=== PATIENT | female | born 1980 | race Caucasian/White ===

== ENCOUNTER 2018-11-14 10:38 | Emergency (ER) | payer BC, OTHER ==
[~2018-11-14] VITALS: Ht 149.9 cm; Wt 85.7 kg
[~2018-11-14 10:38] MED LIST: ARMOUR THYROID60 MG PO; METHADONE HCL10 MG PO; VICODIN PO; Z.0.PROZAC40 MG
--- OUTSIDE RECORDS SUMMARY | 2018-11-14 10:45 | XMS REPORT | Continuity of Care Document ---
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 07/07/2011 [facility] D5NS 1,000 mL 1,000 mL, Rate: 125 ml/hr, Infuse over: 8 hr, Route: IV, Total Volume: 1,000, Start date: 07/06/11 19:07:00, Duration: 30 day, Stop date: 08/05/11 19:06:00 IV No Longer Active Steven 07/07/2011 [facility] Dextrose 50% in Water IV 50 mL, Route: IVP, Start date: 07/06/11 19:00:00, Stop date: 07/06/11 19:00:00 IVP No Longer Active Steven 07/07/2011 [facility] Levsin SL 0.125 mg, 1 tab, Route: SL, Drug form: TAB, Q4H, Start date: 07/06/11 16:00:00, Duration: 30 day, Stop date: 08/05/11 12:00:00 SL No Longer Active Steven 07/06/2011 [facility] Cipro I.V. 400 mg/200 mL intravenous solution 400 mg, 200 mL, Route: IVPB, Drug form: INJ, [id number], Start date: 07/06/11 14:00:00, Duration: 30 day, Stop date: 08/05/11 2:00:00 IVPB No Longer Active Steven 07/06/2011 [facility] MiraLax 17 gm, 1 pkt, Route: PO, Drug form: PWDR, BID, Start date: 07/06/11 9:00:00, Duration: 30 day, Stop date: 08/04/11 17:00:00 PO No Longer Active [facility] 07/06/2011 [facility] Nexium I.V. 40 mg, Route: IVP, Q12H, Start date: 07/06/11 9:00:00, Duration: 30 day, Stop date: 08/04/11 21:00:00, For IV push reconstitute with 10 ml 0.9% sodium chloride and push over at least 3 minutes.For IV push reconstitute with 10 ml 0.9% sodium chloride and push over at least 3 minutes. IVP No Longer Active [facility] 07/06/2011 [facility] Protonix 40 mg, Route: IVP, Drug form: INJ, Q12H, Start date: 07/06/11 9:00:00, Duration: 30 day, Stop date: 08/04/11 21:00:00 IVP No Longer Active [facility] 07/06/2011 [facility] Dilaudid 2 mg, 1 mL, Route: IVP, Drug form: INJ, Q3H, PRN Pain, Start date: 07/06/11 8:15:00, Duration: 30 day, Stop date: 08/05/11 8:14:00 IVP No Longer Active [facility] 07/06/2011 [facility] Dilaudid 0.5 mg, 0.5 mL, Route: IVP, Drug form: SOLN, Q3H, PRN as needed for pain, Priority: STAT, Start date: 07/06/11 6:05:00, Duration: 30 day, Stop date: 08/05/11 6:04:00 IVP No Longer Active Rolfuglloyd 07/06/2011 [facility] Saline Flush 0.9% 5 ml, Route: IVP, Drug Form: INJ, PRN, PRN Line Flush, Start date: 07/06/11 6:05:00, Duration: 30 day, Stop date: 08/05/11 5:04:00 IVP No Longer Active Rolfuglloyd 07/06/2011 [facility] Sodium Chloride 0.9% IV 1,000 mL 1,000 mL, Rate: 125 ml/hr, Infuse over: 8 hr, Route: IV, Total Volume: 1,000, Start date: 07/06/11 6:05:00, Duration: 30 day, Stop date: 08/05/11 6:04:00 IV No Longer Active Mougouris 07/06/2011 [facility] ondansetron 4 mg, 2 mL, Route: IVP, Drug form: INJ, Q6H, PRN Nausea & Vomiting, Start date: 07/06/11 6:05:00, Duration: 30 day, Stop date: 08/05/11 6:04:00 IVP No Longer Active Mougouris 07/06/2011 [facility] Dilaudid 1 mg, Route: IV, ONCE, Priority: STAT, Start date: 07/06/11 3:34:00, Stop date: 07/06/11 3:34:00 IV No Longer Active Calixto 07/06/2011 [facility] Zofran 4 mg, Route: IVP, ONCE, Start date: 07/06/11 3:34:00, Stop date: 07/06/11 3:34:00 IVP No Longer Active Calixto 07/06/2011 [facility] Sodium Chloride 0.9% (Bolus) IV 1,000 mL 1,000 mL, Rate: 250 ml/hr, Infuse over: 4 hr, Route: IV, Total Volume: 1,000, Priority: STAT, Start date: 07/06/11 3:33:00, Duration: 1 doses or times, Stop date: 07/06/11 7:32:00, Bolus DoseBolus Dose IV No Longer Active Calixto 07/06/2011 [facility] Dilaudid 1 mg, Route: IV, ONCE, Priority: STAT, Start date: 07/06/11 0:36:00, Stop date: 07/06/11 0:36:00 IV No Longer Active Calixto 07/06/2011 [facility] Dilaudid 1 mg, Route: IV, ONCE, Priority: STAT, Start date: 07/05/11 23:53:00, Stop date: 07/05/11 23:53:00 IV No Longer Active Calixto 07/06/2011 [facility] Zofran 4 mg, Route: IVP, ONCE, Start date: 07/05/11 23:53:00, Stop date: 07/05/11 23:53:00 IVP No Longer Active Calixto 07/06/2011 [facility] Saline Flush 0.9% 5 ml, Route: IVP, Drug Form: INJ, PRN, PRN Line Flush, Start date: 07/05/11 23:53:00, Duration: 24 hr, Stop date: 07/06/11 23:52:00 IVP No Longer Active Rolfugdoriis 07/06/2011 [facility] Sodium Chloride 0.9% IV 1,000 mL 1,000 mL, Rate: 500 ml/hr, Infuse over: 2 hr, Route: IV, Total Volume: 1,000, Start date: 07/05/11 23:53:00, Duration: 30 day, Stop date: 08/04/11 23:52:00 IV No Longer Active Mougdoriis 07/06/2011 [facility] Prozac 20 mg oral capsule 60 mg, 3 cap, PO, Daily, 30 cap, Substitution Allowed, CAP PO Active Miguelito 06/28/2011 [facility] Dilaudid 2 mg, 1 mL, Route: IV, Drug form: INJ, ONCE, Start date: 06/27/11 14:49:00, Stop date: 06/27/11 14:49:00 IV No Longer Active Kafrouni 06/27/2011 [facility] Prozac 60 mg, 3 cap, Route: PO, Drug form: CAP, Daily, Start date: 06/26/11 22:42:00, Duration: 30 day, Stop date: 07/26/11 21:00:00 PO No Longer Active Antonella 06/27/2011 [facility] amitriptyline 100 mg, 2 tab, Route: PO, Drug form: TAB, Bedtime, Start date: 06/26/11 21:00:00, Duration: 30 day, Stop date: 07/25/11 21:00:00 PO No Longer Active Miguelito 06/27/2011 [facility] chlordiazepoxide-clidinium 5 mg-2.5 mg oral capsule 2 cap, Route: PO, Drug Form: CAP, QID, PRN GI Upset, Start date: 06/26/11 18:18:00, Stop date: 07/26/11 18:17:00, abdominal cramp PO No Longer Active Fang 06/26/2011 [facility] Symbicort 160/4.5 inhalation aerosol with adapter 2 inhalation, Route: INHALATION, Drug Form: AERO/A, BID, Start date: 06/26/11 17:00:00, Duration: 30 day, Stop date: 07/26/11 9:00:00 INHALATION No Longer Active [facility] 06/26/2011 [facility] albuterol 90 mcg/inh inhalation aerosol 1 inhalation, Route: INHALATION, Drug Form: AERO/A, Q4H, PRN Wheezing, Start date: 06/26/11 11:36:00, Duration: 30 day, Stop date: 07/26/11 11:35:00 INHALATION No Longer Active [facility] 06/26/2011 [facility] [place] [address] oral tablet 1 tab, Route: PO, Drug Form: TAB, Q6H, PRN For Pain, Start date: 06/26/11 11:36:00, Duration: 30 day, Stop date: 07/26/11 11:35:00 PO No Longer Active [facility] 06/26/2011 [facility] Zofran 8 mg, 4 mL, Route: IVP, Drug form: INJ, Q8H, PRN Nausea, Start date: 06/26/11 10:22:00, Duration: 30 day, Stop date: 07/26/11 10:21:00 IVP No Longer Active [facility] 06/26/2011 [facility] hydromorphone 4 mg, 2 mL, Route: IV, Drug form: INJ, Q3H, PRN Pain, Start date: 06/26/11 10:22:00, Stop date: 07/26/11 10:21:00 IV No Longer Active Kafrouni 06/26/2011 [facility] Bentyl 20 mg, 2 mL, Route: IM, Drug form: INJ, Q6H, PRN Cramps, Start date: 06/26/11 10:21:00, Duration: 30 day, Stop date: 07/26/11 10:20:00 IM No Longer Active [facility] 06/26/2011 [facility] Dextrose 5% with 0.45% NaCl IV 1,000 mL 1,000 mL, Rate: 150 ml/hr, Infuse over: 6.7 hr, Route: IV, Total Volume: 1,000, Start date: 06/26/11 10:20:00, Duration: 30 day, Stop date: 07/26/11 10:19:00 IV No Longer Active Fang 06/26/2011 [facility] Allergies, Adverse Reactions, Alerts Substance Category Reaction Severity Reaction type Status Date Reported Comments Source acetaminophen-propoxyphene<sup>1</sup> Assertion Drug allergy Active 07/18/2011 1Data migrated from [employer] on 01/04/15. Originally documented as DARVOCET. stomach cramping, vomiting [facility] butorphanol<sup>2</sup> Assertion Drug allergy Active 07/18/2011 2Data migrated from [employer] on 01/04/15. Originally documented as STADOL. severe itching [facility] fentaNYL<sup>3</sup> Assertion Drug allergy Active 07/18/2011 3Data migrated from [employer] on 01/04/15. Originally documented as FENTYNAL. severe itching [facility] ketorolac<sup>4</sup> Assertion Drug allergy Active 07/18/2011 4Data migrated from [employer] on 01/04/15. Originally documented as TORADOL. stomach cramping, vomiting [facility] traMADol<sup>5</sup> Assertion Drug allergy Active 07/18/2011 5Data migrated from [employer] on 01/04/15. Originally documented as TRAMADOL. stomach cramping, vomiting [facility] Darvocet-N 100 propensity to adverse reactions to substance Adverse Reaction Active [facility] fentanyl drug allergy Allergy Active [facility] NKFA propensity to adverse reactions to substance Adverse Reaction Active [facility] NSAIDs drug allergy Allergy Active [facility] Stadol drug allergy Allergy Active [facility] Toradol drug allergy Allergy Active [facility] traMADOL drug allergy Allergy Active [facility] Immunizations Immunization Date Given Site Status Last Updated Comments Source Results Order Name Results Value Reference Range Date Interpretation Comments Source CARDIAC ENZYMES Troponin-I null 0.00 - 0.40 02/01/2015 [facility] HEMATOLOGY Basophils # 0.1 K/CMM 0.0 - 0.2 02/01/2015 [facility] HEMATOLOGY Segs-Bands # 9.9 K/CMM 1.5 - 8.1 02/01/2015 [facility] HEMATOLOGY Monocytes # 0.4 K/CMM 0.0 - 0.8 02/01/2015 [facility] HEMATOLOGY Lymphocytes # 1.5 K/CMM 1.0 - 5.5 02/01/2015 [facility] HEMATOLOGY Eosinophils 0.1 % 0.0 - 4.0 02/01/2015 [facility] HEMATOLOGY Monocytes 3.7 % 2.0 - 12.0 02/01/[address] [facility] [place] Basophils 0.5 % 0.0 - 1.0 02/01/[address] [facility] [place] Segs 82.8 % 45.0 - 75.0 02/01/[address] [facility] [place] Lymphocytes 12.9 % 20.0 - 40.0 02/01/[address] [facility] [place] MPV 9.5 fL 7.4 - 10.4 02/01/[address] [facility] [place] MCHC 34.5 g/dL 32.0 - 36.0 02/01/[address] [facility] [place] MCV 88.8 fL 80.0 - 98.0 02/01/[address] [facility] [place] MCH 30.6 pg 27.0 - 31.0 02/01/[address] [facility] [place] RDW 13.8 % 11.5 - 14.5 02/01/[address] [facility] [place] Platelet 184 K/CMM 133 - 450 02/01/[address] [facility] [place] RBC 4.59 M/CMM 4.20 - 5.40 02/01/[address] [facility] [place] WBC 11.9 K/CMM 3.7 - 10.4 02/01/[address] [facility] [place] Hgb 14.1 g/dL 12.0 - 16.0 02/01/[address] [facility] [place] Hct 40.8 % 36.0 - 48.0 02/01/2015 [facility] Chest 2 views DX Chest 2 views DX Chest 2 views: COMPARISON: 12/06/2011 FINDINGS: The lungs are clear and well inflated. There are no effusions or other pleural abnormalities. The cardiomediastinal silhouette and the pulmonary vasculature are within normal limits. No significant bony abnormality is noted. Surgical clips project over the right upper abdomen suggesting previous cholecystectomy. Various EKG leads and wires project over the patient's chest. IMPRESSION: No acute abnormality is noted in the chest. SL:13 02/01/2015 - - Read by: Dedrick Martinez MD Dictated Date/time: 02/01/15 11:42 Electronically Signed by: Dedrick Martinez MD 02/01/15 11:43 FINAL REPORT [facility] CHEMISTRY Calcium Lvl 9.1 mg/dL 8.5 - 10.5 01/08/2012 Normal [facility] CHEMISTRY Albumin Lvl 3.5 g/dL 3.5 - 5.0 01/08/2012 Normal [facility] CHEMISTRY Sodium Lvl 141 meq/L 135 - 145 01/08/2012 Normal [facility] CHEMISTRY Creatinine Lvl 0.6 mg/dL 0.5 - 1.4 01/08/2012 Normal [facility] CHEMISTRY Potassium Lvl 4.0 meq/L 3.5 - 5.1 01/08/2012 Normal [facility] CHEMISTRY Chloride Lvl 107 meq/L 95 - 109 01/08/2012 Normal [facility] CHEMISTRY Bili Total 0.2 mg/dL 0.2 - 1.3 01/08/2012 Normal [facility] CHEMISTRY Glucose Lvl 85 mg/dL 70 - 99 01/08/2012 Normal 1Interpretive Data: Adult reference range values reflect the clinical guidelinesof the [place] [employer]. [facility] CHEMISTRY BUN 12 mg/dL 7 - 22 01/08/2012 Normal [facility] CHEMISTRY CO2 25 meq/L 24 - 32 01/08/2012 Normal [facility] CHEMISTRY AST 10 U/L 0 - 37 01/08/2012 Normal [facility] CHEMISTRY Total Protein 7.0 g/dL 6.4 - 8.4 01/08/2012 Normal [facility] CHEMISTRY ALT 24 U/L 0 - 65 01/08/2012 Normal [facility] CHEMISTRY Alk Phos 50 U/L 39 - 136 01/08/2012 Normal [facility] CHEMISTRY Globulin 3.5 g/dL 2.0 - 4.0 01/08/2012 Normal [facility] CHEMISTRY A/G Ratio 1.0 0.7 - 1.6 01/08/2012 Normal [facility] CHEMISTRY AGAP 13.0 meq/L 10.0 - 20.0 01/08/2012 Normal [facility] CHEMISTRY B/C Ratio 20 6 - 25 01/08/2012 Normal [facility] CHEMISTRY Lipase Lvl 109 U/L 73 - 393 01/08/2012 Normal [facility] HEMATOLOGY Platelet 140 K/CMM 133 - 450 01/08/2012 Normal [facility] HEMATOLOGY MPV 9.4 fL 7.4 - 10.4 01/08/2012 Normal [facility] HEMATOLOGY RDW 14.7 % 11.5 - 14.5 01/08/2012 HI [facility] HEMATOLOGY WBC 7.6 K/CMM 3.7 - 10.4 01/08/2012 Normal [facility] HEMATOLOGY RBC 3.76 M/CMM 4.20 - 5.40 01/08/2012 LOW [facility] HEMATOLOGY Hct 37.7 % 36.0 - 48.0 01/08/2012 Normal [facility] HEMATOLOGY Hgb 12.3 g/dL 12.0 - 16.0 01/08/2012 Normal [facility] HEMATOLOGY MCH 32.8 pg 27.0 - 31.0 01/08/2012 HI [facility] HEMATOLOGY MCV 100.3 fL 81.0 - 99.0 01/08/2012 HI [facility] HEMATOLOGY MCHC 32.7 g/dL 32.0 - 36.0 01/08/2012 Normal [facility] HEMATOLOGY Segs-Bands # 4.8 K/CMM 1.5 - 8.1 01/08/2012 Normal [facility] HEMATOLOGY Lymphocytes # 2.0 K/CMM 1.0 - 5.5 01/08/2012 Normal [facility] HEMATOLOGY Eosinophils 1.6 % 0.0 - 4.0 01/08/2012 Normal [facility] HEMATOLOGY Basophils 0.3 % 0.0 - 1.0 01/08/2012 Normal [facility] HEMATOLOGY Monocytes # 0.6 K/CMM 0.0 - 0.8 01/08/2012 Normal [facility] HEMATOLOGY Eosinophils # 0.1 K/CMM 0.0 - 0.5 01/08/2012 Normal [facility] HEMATOLOGY Basophils # 0.0 K/CMM 0.0 - 0.2 01/08/2012 Normal [facility] HEMATOLOGY Monocytes 8.5 % 2.0 - 12.0 01/08/2012 Normal [facility] HEMATOLOGY Lymphocytes 26.4 % 20.0 - 40.0 01/08/2012 Normal [facility] HEMATOLOGY Segs 63.2 % 45.0 - 75.0 01/08/2012 Normal [facility] URINALYSIS UA Bacteria None Seen (01/08/2012 09:30:00) None Seen 01/08/2012 Normal [facility] URINALYSIS UA Mucus None Seen (01/08/2012 09:30:00) None Seen 01/08/2012 Normal [facility] URINALYSIS UA RBC None Seen (01/08/2012 09:30:00) 0 - 2 01/08/2012 Normal [facility] URINALYSIS Micro? Performed (01/08/2012 09:30:00) 01/08/2012 Normal [facility] URINALYSIS UA WBC 0-2 /HPF (01/08/2012 09:30:00) None Seen 01/08/2012 Normal [facility] URINALYSIS UA Sq Epi Rare /LPF (01/08/2012 09:30:00) Few 01/08/2012 [facility] URINALYSIS UA Leuk Est Negative (01/08/2012 09:30:00) Negative 01/08/2012 [facility] URINALYSIS UA Glucose Negative mg/dL (01/08/2012 09:30:00) Negative 01/08/2012 [facility] URINALYSIS UA Ketones Negative mg/dL *NA* (01/08/2012 09:30:00) Negative 01/08/2012 [facility] URINALYSIS UA Nitrite Negative (01/08/2012 09:30:00) Negative 01/08/2012 Normal [facility] URINALYSIS UA Bili Negative *NA* (01/08/2012 09:30:00) Negative 01/08/2012 [facility] URINALYSIS UA Urobilinogen 0.2 EU/dL 0.1 - 1.0 01/08/2012 [facility] URINALYSIS UA Blood Negative (01/08/2012 09:30:00) Negative 01/08/2012 [facility] URINALYSIS UA Turbidity Clear (01/08/2012 09:30:00) Clear 01/08/2012 [facility] URINALYSIS UA pH 6.5 5.0 - 8.0 01/08/2012 [facility] URINALYSIS UA Color Yellow *NA* (01/08/2012 09:30:00) Yellow 01/08/2012 [facility] URINALYSIS UA Protein Negative mg/dL (01/08/2012 09:30:00) Negative 01/08/2012 [facility] URINALYSIS UA Spec Grav 1.015 <=1.030 01/08/2012 Normal [facility] IMMUNOLOGY Chlam PCR Negative (01/07/2012 17:00:00) Negative 01/07/2012 Normal [facility] [place]MMUNOLOGY Source Chlam endocervix 01/07/2012 NA [facility] [place] IMMUNOLOGY Source [place] Endocervix 01/07/2012 NA [facility] [place] IMMUNOLOGY Gonorrhea PCR Negative (01/07/2012 17:00:00) Negative 01/07/2012 Normal [facility] [place] Microbiology Wet Prep 01/07/2012 [facility] [place] CHEMISTRY Lipase Lvl 64 U/L 73 - 393 01/07/2012 LOW [facility] [place] CHEMISTRY B/C Ratio 21 6 - 25 01/07/2012 Normal [facility] [place] CHEMISTRY Globulin 3.2 g/dL 2.0 - 4.0 01/07/2012 Normal [facility] [place] CHEMISTRY AGAP 12.0 meq/L 10.0 - 20.0 01/07/2012 Normal [facility] [place] CHEMISTRY A/G Ratio 1.3 0.7 - 1.6 01/07/2012 Normal [facility] [place] CHEMISTRY AST 10 U/L 0 - 37 01/07/2012 Normal [facility] [place] CHEMISTRY Creatinine Lvl 0.7 mg/dL 0.5 - 1.4 01/07/2012 Normal [facility] [place] CHEMISTRY Alk Phos 42 U/L 39 - 136 01/07/2012 Normal [facility] [place] CHEMISTRY ALT 22 U/L 0 - 65 01/07/2012 Normal [facility] [place] CHEMISTRY Chloride Lvl 107 meq/L 95 - 109 01/07/2012 Normal [facility] [place] CHEMISTRY Potassium Lvl 4.0 meq/L 3.5 - 5.1 01/07/2012 Normal [facility] [place] CHEMISTRY Sodium Lvl 139 meq/L 135 - 145 01/07/2012 Normal [facility] [place] CHEMISTRY Albumin Lvl 4.0 g/dL 3.5 - 5.0 01/07/2012 Normal [facility] [place] CHEMISTRY Total Protein 7.2 g/dL 6.4 - 8.4 01/07/2012 Normal [facility] [place] CHEMISTRY Calcium Lvl 8.8 mg/dL 8.5 - 10.5 01/07/2012 Normal [facility] [place] CHEMISTRY Bili Total 0.3 mg/dL 0.2 - 1.3 01/07/2012 Normal [facility] [place] CHEMISTRY BUN 15 mg/dL 7 - 22 01/07/2012 Normal [facility] [place] CHEMISTRY Glucose Lvl 76 mg/dL 70 - 99 01/07/2012 Normal 1Interpretive Data: Adult reference range values reflect the clinical guidelinesof the [place] [employer]. [facility] [place] CHEMISTRY CO2 24 meq/L 24 - 32 01/07/2012 Normal [facility] [place] HEMATOLOGY Lymphocytes 36.1 % 20.0 - 40.0 01/07/2012 Normal [facility] [place] HEMATOLOGY Monocytes 8.0 % 2.0 - 12.0 01/07/2012 Normal [facility] [place] HEMATOLOGY Eosinophils 1.1 % 0.0 - 4.0 01/07/2012 Normal [facility] [place] HEMATOLOGY Segs-Bands # 4.4 K/CMM 1.5 - 8.1 01/07/2012 Normal [facility] [place] HEMATOLOGY Basophils 0.6 % 0.0 - 1.0 01/07/2012 Normal [facility] [place] HEMATOLOGY Lymphocytes # 2.9 K/CMM 1.0 - 5.5 01/07/2012 Normal [facility] [place] HEMATOLOGY Segs 54.2 % 45.0 - 75.0 01/07/2012 Normal [facility] [place] HEMATOLOGY Basophils # 0.0 K/CMM 0.0 - 0.2 01/07/2012 Normal [facility] [place] HEMATOLOGY Macrocyte 1+ *ABN* (01/07/2012 14:30:00) None Seen 01/07/2012 ABN [facility] [place] HEMATOLOGY Monocytes # 0.6 K/CMM 0.0 - 0.8 01/07/2012 Normal [facility] [place] HEMATOLOGY Eosinophils # 0.1 K/CMM 0.0 - 0.5 01/07/2012 Normal [facility] [place] HEMATOLOGY MPV 9.3 fL 7.4 - 10.4 01/07/2012 Normal [facility] [place] HEMATOLOGY Hct 36.9 % 36.0 - 48.0 01/07/2012 Normal [facility] [place] HEMATOLOGY MCHC 34.8 g/dL 32.0 - 36.0 01/07/2012 Normal [facility] [place] HEMATOLOGY WBC 8.1 K/CMM 3.7 - 10.4 01/07/2012 Normal [facility] [place] HEMATOLOGY RBC 3.73 M/CMM 4.20 - 5.40 01/07/2012 LOW [facility] [place] Hgb 12.9 g/dL 12.0 - 16.0 01/07/2012 Normal [facility] [place] [facility] [place] MCV 98.8 fL 81.0 - 99.0 01/07/2012 Normal [facility] [place] [facility] [place]EMAT[place] MCH 34.4 pg 27.0 - 31.0 01/07/2012 HI [facility] [facility] [place] RDW 14.5 % 11.5 - 14.5 01/07/2012 Normal [facility] [place] [place] HEMAT[place] Platelet 146 K/CMM 133 - 450 01/07/2012 Normal [facility] [place] [facility] [place] CHEMISTRY S Preg Negative *NA* (12/07/2011 20:20:00) Negative 12/08/2011 NA [facility] CHEMISTRY Lipase Lvl 223 U/L 73 - 393 12/08/2011 Normal [facility] CHEMISTRY Amylase Lvl 23 U/L 25 - 115 12/08/2011 LOW [facility] CHEMISTRY B/C Ratio 20 6 - 25 12/08/2011 Normal [facility] CHEMISTRY Globulin 3.1 g/dL 2.0 - 4.0 12/08/2011 Normal [facility] CHEMISTRY A/G Ratio 1.3 0.7 - 1.6 12/08/2011 Normal [facility] CHEMISTRY AGAP 13.2 meq/L 10.0 - 20.0 12/08/2011 Normal [facility] CHEMISTRY ALT 24 U/L 0 - 65 12/08/2011 Normal [facility] CHEMISTRY Albumin Lvl 3.9 g/dL 3.5 - 5.0 12/08/2011 Normal [facility] CHEMISTRY Total Protein 7.0 g/dL 6.4 - 8.4 12/08/2011 Normal [facility] CHEMISTRY Calcium Lvl 8.9 mg/dL 8.5 - 10.5 12/08/2011 Normal [facility] CHEMISTRY AST 16 U/L 0 - 37 12/08/2011 Normal [facility] CHEMISTRY Bili Total 0.3 mg/dL 0.2 - 1.3 12/08/2011 Normal [facility] CHEMISTRY Alk Phos 45 U/L 39 - 136 12/08/2011 Normal [facility] CHEMISTRY Glucose Lvl 78 mg/dL 70 - 99 12/08/2011 Normal 1Interpretive Data: Adult reference range values reflect the clinical guidelinesof the [place] [employer]. [facility] CHEMISTRY BUN 10 mg/dL 7 - 22 12/08/2011 Normal [facility] CHEMISTRY Potassium Lvl 4.2 meq/L 3.5 - 5.1 12/08/2011 Normal [facility] CHEMISTRY Sodium Lvl 138 meq/L 135 - 145 12/08/2011 Normal [facility] CHEMISTRY Creatinine Lvl 0.5 mg/dL 0.5 - 1.4 12/08/2011 Normal [facility] CHEMISTRY CO2 24 meq/L 24 - 32 12/08/2011 Normal [facility] CHEMISTRY Chloride Lvl 105 meq/L 95 - 109 12/08/2011 Normal [facility] HEMATOLOGY Monocytes 5.4 % 2.0 - 12.0 12/08/2011 Normal [facility] HEMATOLOGY Segs 57.7 % 45.0 - 75.0 12/08/2011 Normal [facility] HEMATOLOGY Eosinophils 1.6 % 0.0 - 4.0 12/08/2011 Normal [facility] HEMATOLOGY Basophils 0.1 % 0.0 - 1.0 12/08/2011 Normal [facility] HEMATOLOGY Lymphocytes 35.2 % 20.0 - 40.0 12/08/2011 Normal [facility] HEMATOLOGY Segs-Bands # 4.6 K/CMM 1.5 - 8.1 12/08/2011 Normal [facility] HEMATOLOGY Plt Morph Normal (12/07/2011 20:20:00) 12/08/2011 Normal [facility] HEMATOLOGY RBC Morph Normal (12/07/2011 20:20:00) 12/08/2011 Normal [facility] HEMATOLOGY Basophils # 0.0 K/CMM 0.0 - 0.2 12/08/2011 Normal [facility] HEMATOLOGY Eosinophils # 0.1 K/CMM 0.0 - 0.5 12/08/2011 Normal [facility] HEMATOLOGY Monocytes # 0.4 K/CMM 0.0 - 0.8 12/08/2011 Normal [facility] HEMATOLOGY Lymphocytes # 2.8 K/CMM 1.0 - 5.5 12/08/2011 Normal [facility] HEMATOLOGY Platelet 44 K/CMM 133 - 450 12/08/2011 LOW [facility] HEMATOLOGY MPV 9.8 fL 7.4 - 10.4 12/08/2011 Normal [facility] HEMATOLOGY RDW 15.3 % 11.5 - 14.5 12/08/2011 [facility] HEMATOLOGY MCH 32.8 pg 27.0 - 31.0 12/08/2011 [facility] HEMATOLOGY MCHC 33.0 g/dL 32.0 - 36.0 12/08/2011 Normal [facility] HEMATOLOGY MCV 99.4 fL 81.0 - 99.0 12/08/2011 [facility] HEMATOLOGY Hct 35.6 % 36.0 - 48.0 12/08/2011 LOW [facility] HEMATOLOGY Hgb 11.8 g/dL 12.0 - 16.0 12/08/2011 LOW [facility] HEMATOLOGY WBC 8.0 K/CMM 3.7 - 10.4 12/08/2011 Normal [facility] HEMATOLOGY RBC 3.58 M/CMM 4.20 - 5.40 12/08/2011 LOW [facility] URINALYSIS UA Turbidity Clear (12/07/2011 19:38:00) Clear 12/08/2011 Normal [facility] URINALYSIS UA Blood Negative (12/07/2011 19:38:00) Negative 12/08/2011 Normal [facility] URINALYSIS UA Bili Negative *NA* (12/07/2011 19:38:00) Negative 12/08/2011 [facility] URINALYSIS UA Urobilinogen 0.2 EU/dL 0.1 - 1.0 12/08/2011 Normal [facility] URINALYSIS UA Color Yellow *NA* (12/07/2011 19:38:00) Yellow 12/08/2011 NA [facility] URINALYSIS UA Ketones Negative mg/dL *NA* (12/07/2011 19:38:00) Negative 12/08/2011 NA [facility] URINALYSIS UA Glucose Negative mg/dL (12/07/2011 19:38:00) Negative 12/08/2011 Normal [facility] URINALYSIS UA Protein Negative mg/dL (12/07/2011 19:38:00) Negative 12/08/2011 Normal [facility] URINALYSIS UA pH 6.5 5.0 - 8.0 12/08/2011 Normal [facility] URINALYSIS UA Spec Grav 1.020 <=1.030 12/08/2011 Normal [facility] URINALYSIS UA Nitrite Negative (12/07/2011 19:38:00) Negative 12/08/2011 Normal [facility] URINALYSIS UA Leuk Est Negative (12/07/2011 19:38:00) Negative 12/08/2011 Normal [facility] URINALYSIS UA WBC None Seen (12/07/2011 19:38:00) None Seen 12/08/2011 Normal [facility] URINALYSIS UA RBC 0-2 /HPF (12/07/2011 19:38:00) 0 - 2 12/08/2011 Normal [facility] URINALYSIS UA Sq Epi Many /LPF *ABN* (12/07/2011 19:38:00) Few 12/08/2011 ABN [facility] URINALYSIS UA Bacteria Moderate /HPF (12/07/2011 19:38:00) None Seen 12/08/2011 Normal [facility] STOOL TESTS Occult Bld Stl Negative (12/06/2011 12:01:00) Negative 12/06/2011 Normal [facility] URINALYSIS UA Glucose Negative (12/06/2011 10:15:00) Negative 12/06/2011 Normal [facility] URINALYSIS UA Leuk Est Negative (12/06/2011 10:15:00) Negative 12/06/2011 Normal [facility] URINALYSIS UA Nitrite Negative (12/06/2011 10:15:00) Negative 12/06/2011 Normal [facility] URINALYSIS UA Blood Negative (12/06/2011 10:15:00) Negative 12/06/2011 Normal [facility] URINALYSIS UA Ketones Negative *NA* (12/06/2011 10:15:00) Negative 12/06/2011 NA [facility] URINALYSIS UA Urobilinogen 0.2 EU/dL 0.1 - 1.0 12/06/2011 Normal [facility] URINALYSIS UA Bacteria Few /HPF (12/06/2011 10:15:00) None Seen 12/06/2011 Normal [facility] URINALYSIS UA RBC None Seen (12/06/2011 10:15:00) 0 - 2 12/06/2011 Normal [facility] URINALYSIS UA Mucus Few /LPF (12/06/2011 10:15:00) None Seen 12/06/2011 Normal [facility] URINALYSIS UA WBC None Seen (12/06/2011 10:15:00) None Seen 12/06/2011 Normal [facility] URINALYSIS UA Sq Epi Few /LPF (12/06/2011 10:15:00) Few 12/06/2011 Normal [facility] URINALYSIS UA Spec Grav >=1.030 *ABN* (12/06/2011 10:15:00) <=1.030 12/06/2011 ABN [facility] URINALYSIS UA Protein Negative (12/06/2011 10:15:00) Negative 12/06/2011 Normal [facility] URINALYSIS UA pH 6.0 5.0 - 8.0 12/06/2011 Normal [facility] URINALYSIS UA Turbidity Clear (12/06/2011 10:15:00) Clear 12/06/2011 Normal [facility] URINALYSIS UA Color Yellow *NA* (12/06/2011 10:15:00) Yellow 12/06/2011 NA [facility] URINALYSIS UA Bili Negative (12/06/2011 10:15:00) Negative 12/06/2011 Normal [facility] BLOOD BANK RESULTS Antibody Scrn Negative (12/06/2011 09:00:00) 12/06/2011 Normal [facility] BLOOD BANK RESULTS ABO/Rh B POS 12/06/2011 Unknown [facility] STOOL TESTS Occult Bld Stl Negative (12/06/2011 08:35:00) Negative 12/06/2011 Normal [facility] CHEMISTRY Total Protein 7.0 g/dL 6.4 - 8.4 12/06/2011 Normal [facility] CHEMISTRY ALT 22 U/L 0 - 65 12/06/2011 Normal [facility] CHEMISTRY CO2 23 meq/L 24 - 32 12/06/2011 LOW [facility] CHEMISTRY Sodium Lvl 144 meq/L 135 - 145 12/06/2011 Normal [facility] CHEMISTRY Potassium Lvl 3.8 meq/L 3.5 - 5.1 12/06/2011 Normal [facility] CHEMISTRY Chloride Lvl 110 meq/L 95 - 109 12/06/2011 [facility] CHEMISTRY Calcium Lvl 9.0 mg/dL 8.5 - 10.5 12/06/2011 Normal [facility] CHEMISTRY AST 12 U/L 0 - 37 12/06/2011 Normal [facility] CHEMISTRY Bili Total 0.3 mg/dL 0.2 - 1.3 12/06/2011 Normal [facility] CHEMISTRY Albumin Lvl 3.8 g/dL 3.5 - 5.0 12/06/2011 Normal [facility] CHEMISTRY Alk Phos 43 U/L 39 - 136 12/06/2011 Normal [facility] CHEMISTRY Glucose Lvl 82 mg/dL 70 - 99 12/06/2011 Normal 1Interpretive Data: Adult reference range values reflect the clinical guidelinesof the [place] [employer]. [facility] CHEMISTRY Creatinine Lvl 0.6 mg/dL 0.5 - 1.4 12/06/2011 Normal [facility] CHEMISTRY BUN 14 mg/dL 7 - 22 12/06/2011 Normal [facility] CHEMISTRY A/G Ratio 1.2 0.7 - 1.6 12/06/2011 Normal [facility] CHEMISTRY Globulin 3.2 g/dL 2.0 - 4.0 12/06/2011 Normal [facility] CHEMISTRY B/C Ratio 23 6 - 25 12/06/2011 Normal [facility] CHEMISTRY AGAP 14.8 meq/L 10.0 - 20.0 12/06/2011 Normal [facility] CHEMISTRY Lipase Lvl 213 U/L 73 - 393 12/06/2011 Normal [facility] HEMATOLOGY MCH 33.2 pg 27.0 - 31.0 12/06/2011 [facility] HEMATOLOGY MCHC 33.2 g/dL 32.0 - 36.0 12/06/2011 Normal [facility] HEMATOLOGY RDW 15.6 % 11.5 - 14.5 12/06/2011 [facility] HEMATOLOGY Platelet 171 K/CMM 133 - 450 12/06/2011 Normal [facility] HEMATOLOGY MPV 9.2 fL 7.4 - 10.4 12/06/2011 Normal [facility] HEMATOLOGY MCV 100.1 fL 81.0 - 99.0 12/06/2011 [facility] HEMATOLOGY RBC 3.74 M/CMM 4.20 - 5.40 12/06/2011 LOW [facility] HEMATOLOGY Hct 37.4 % 36.0 - 48.0 12/06/2011 Normal [facility] HEMATOLOGY Hgb 12.4 g/dL 12.0 - 16.0 12/06/2011 Normal [facility] HEMATOLOGY WBC 8.7 K/CMM 3.7 - 10.4 12/06/2011 Normal [facility] HEMATOLOGY Monocytes # 0.6 K/CMM 0.0 - 0.8 12/06/2011 Normal [facility] HEMATOLOGY Eosinophils # 0.1 K/CMM 0.0 - 0.5 12/06/2011 Normal [facility] HEMATOLOGY Basophils # 0.0 K/CMM 0.0 - 0.2 12/06/2011 Normal [facility] HEMATOLOGY Basophils 0.3 % 0.0 - 1.0 12/06/2011 Normal [facility] HEMATOLOGY Monocytes 6.6 % 2.0 - 12.0 12/06/2011 Normal [facility] HEMATOLOGY Eosinophils 0.9 % 0.0 - 4.0 12/06/2011 Normal [facility] HEMATOLOGY Lymphocytes 21.5 % 20.0 - 40.0 12/06/2011 Normal [facility] HEMATOLOGY Segs 70.7 % 45.0 - 75.0 12/06/2011 Normal [facility] HEMATOLOGY Lymphocytes # 1.9 K/CMM 1.0 - 5.5 12/06/2011 Normal [facility] HEMATOLOGY Segs-Bands # 6.2 K/CMM 1.5 - 8.1 12/06/2011 Normal [facility] CHEMISTRY FTI 1.6 11/08/2011 NA [facility] [place] CHEMISTRY FTI 2.0 11/08/2011 NA [facility] [place] CHEMISTRY ALT 24 U/L 0 - 65 11/08/2011 Normal [facility] [place] CHEMISTRY A/G Ratio 1.2 0.7 - 1.6 11/08/2011 Normal [facility] [place] CHEMISTRY Globulin 3.3 g/dL 2.0 - 4.0 11/08/2011 Normal [facility] [place] CHEMISTRY Albumin Lvl 4.0 g/dL 3.5 - 5.0 11/08/2011 Normal [facility] [place] CHEMISTRY Alk Phos 45 U/L 39 - 136 11/08/2011 Normal [facility] [place] CHEMISTRY AST 14 U/L 0 - 37 11/08/2011 Normal [facility] [place] CHEMISTRY Total Protein 7.3 g/dL 6.4 - 8.4 11/08/2011 Normal [facility] [place] CHEMISTRY Bili Indirect 0.3 mg/dL 0.0 - 1.0 11/08/2011 Normal [facility] [place] CHEMISTRY Bili Total 0.4 mg/dL 0.2 - 1.3 11/08/2011 Normal [facility] [place] CHEMISTRY Bili Direct 0.1 mg/dL 0.0 - 0.3 11/08/2011 Normal [facility] [place] CHEMISTRY AGAP 15.9 meq/L 10.0 - 20.0 11/08/2011 Normal [facility] [place] CHEMISTRY Calcium Lvl 9.6 mg/dL 8.5 - 10.5 11/08/2011 Normal [facility] [place] CHEMISTRY CO2 24 meq/L 24 - 32 11/08/2011 Normal [facility] [place] CHEMISTRY Potassium Lvl 3.9 meq/L 3.5 - 5.1 11/08/2011 Normal [facility] [place] CHEMISTRY Chloride Lvl 106 meq/L 95 - 109 11/08/2011 Normal [facility] [place] CHEMISTRY Sodium Lvl 142 meq/L 135 - 145 11/08/2011 Normal [facility] [place] CHEMISTRY BUN 9 mg/dL 7 - 22 11/08/2011 Normal [facility] [place] CHEMISTRY Creatinine Lvl 0.6 mg/dL 0.5 - 1.4 11/08/2011 Normal [facility] [place] CHEMISTRY Glucose Lvl 105 mg/dL 11/08/2011 NA 1Interpretive Data: Reference Ranges : 0 - 7 days : 41 - 90 mg/dL7 days - 150 yrs : 70 - 99 mg/dL (fasting), based on the clinical recommendations of the [place] [employer]. [facility] [place] CHEMISTRY TSH 0.440 uIU/mL 0.360 - 3.740 11/08/2011 Normal [facility] [place] CHEMISTRY T3 Uptake 33 % 31 - 39 11/08/2011 Normal [facility] [place] CHEMISTRY T4 6.0 ug/dl 4.7 - 13.3 11/08/2011 Normal [facility] [place] CHEMISTRY CHD Risk 4.00 3.90 - 5.80 11/08/2011 Normal [facility] [place] CHEMISTRY LDL 136 mg/dL 0 - 129 11/08/2011 [facility] CHEMISTRY Chol 240 mg/dL 120 - 200 11/08/2011 [facility] CHEMISTRY HDL 60 mg/dL >=35 11/08/2011 Normal [facility] [place] CHEMISTRY Trig 220 mg/dL 0 - 200 11/08/2011 [facility] CHEMISTRY Hgb A1C 5.6 % 11/08/2011 NA 2Interpretive Data: HbA1C% eAG(mg/dL) Interpretation 6.0 126 Very good control 6.5 140 Very good control 7.0 154 Good Control 7.5 169 Good Control 8.0 183 Marginal Control, take action to lower 8.5 197 Marginal Control, take action to lower 9.0 212 Poor Control, take action to lower 9.5 226 Poor Control, take action to lower10.0 240 Poor Control, take action to lower [facility] [place] CHEMISTRY TSH 0.437 uIU/mL 0.360 - 3.740 11/08/2011 Normal [facility] [place] CHEMISTRY T4 5.0 ug/dl 4.7 - 13.3 11/08/2011 Normal [facility] [place] CHEMISTRY T3 Uptake 32 % 31 - 39 11/08/2011 Normal [facility] [place] HEMATOLOGY Macrocyte 1+ *ABN* (11/08/2011 17:50:00) None Seen 11/08/2011 ABN [facility] [place] HEMATOLOGY Basophils # 0.1 K/CMM 0.0 - 0.2 11/08/2011 [facility] HEMATOLOGY Segs 64.0 % 45.0 - 75.0 11/08/2011 Normal [facility] [place] HEMATOLOGY Monocytes 8.2 % 2.0 - 12.0 11/08/2011 Normal [facility] [place] HEMATOLOGY Lymphocytes 26.1 % 20.0 - 40.0 11/08/2011 Normal [facility] [place] HEMATOLOGY Segs-Bands # 6.2 K/CMM 1.5 - 8.1 11/08/2011 [facility] HEMATOLOGY Lymphocytes # 2.5 K/CMM 1.0 - 5.5 11/08/2011 [facility] HEMATOLOGY Eosinophils 0.6 % 0.0 - 4.0 11/08/2011 [facility] HEMATOLOGY Basophils 1.1 % 0.0 - 1.0 11/08/2011 [facility] HEMATOLOGY Monocytes # 0.8 K/CMM 0.0 - 0.8 11/08/2011 [facility] HEMATOLOGY Eosinophils # 0.1 K/CMM 0.0 - 0.5 11/08/2011 [facility] HEMATOLOGY MPV 9.1 fL 7.4 - 10.4 11/08/2011 [facility] HEMATOLOGY Platelet 204 K/CMM 133 - 450 11/08/2011 [facility] HEMATOLOGY RDW 14.6 % 11.5 - 14.5 11/08/2011 HI [facility] [place] HEMATOLOGY MCHC 33.9 g/dL 32.0 - 36.0 11/08/2011 Normal [facility] [place] HEMATOLOGY Hct 39.1 % 36.0 - 48.0 11/08/2011 Normal [facility] [place] HEMATOLOGY MCV 98.1 fL 81.0 - 99.0 11/08/2011 Normal [facility] [place] HEMATOLOGY MCH 33.3 pg 27.0 - 31.0 11/08/2011 [place] [facility] [place] HEMATOLOGY WBC 9.7 K/CMM 3.7 - 10.4 11/08/2011 Normal [facility] [place] HEMATOLOGY Hgb 13.3 g/dL 12.0 - 16.0 11/08/2011 Normal [facility] [place] HEMATOLOGY RBC 3.99 M/CMM 4.20 - 5.40 11/08/2011 LOW [facility] [place] HEMATOLOGY Sed Rate 11 mm/h 0 - 20 11/08/2011 Normal [facility] [place] IMMUNOLOGY SANDRO Negative (11/08/2011 17:50:00) Negative 11/08/2011 Normal [facility] [place] BEDSIDE GLUCOSE TESTING Comment1 Notify IRINA 07/11/2011 [facility] BEDSIDE GLUCOSE TESTING Gluc POC Lifscn 119.0 mg/dL 65 - 110 07/11/2011 [place] 1Interpretive Data: Upper Reportable Limit: 200 mg/dL. [facility] BEDSIDE GLUCOSE TESTING Gluc POC Lifscn 94.0 mg/dL 65 - 110 07/11/2011 Normal 2Interpretive Data: Upper Reportable Limit: 200 mg/dL. [facility] BEDSIDE GLUCOSE TESTING Comment1 Notify IRINA 07/11/2011 [facility] BEDSIDE GLUCOSE TESTING Comment1 Notify IRINA 07/11/2011 [facility] BEDSIDE GLUCOSE TESTING Gluc POC Lifscn 95.0 mg/dL 65 - 110 07/11/2011 Normal 3Interpretive Data: Upper Reportable Limit: 200 mg/dL. [facility] BEDSIDE GLUCOSE TESTING Comment2 Notify IRNIA 07/10/2011 [facility] BEDSIDE GLUCOSE TESTING Comment2 Notify IRINA 07/10/2011 [facility] BEDSIDE GLUCOSE TESTING Comment2 Notify IRINA 07/10/2011 [facility] CHEMISTRY B/C Ratio 9.0 6 - 25 07/10/2011 Normal [facility] CHEMISTRY A/G Ratio 1.2 0.7 - 1.6 07/10/2011 Normal [facility] CHEMISTRY AGAP 14.1 meq/L 10.0 - 20.0 07/10/2011 Normal [facility] CHEMISTRY Globulin 3.1 g/dL 2.0 - 4.0 07/10/2011 Normal [facility] CHEMISTRY AST 47.0 U/L 0 - 37 07/10/2011 HI [facility] CHEMISTRY Glucose Lvl 126.0 mg/dL 07/10/2011 NA 5Interpretive Data: Reference Ranges : 0 - 7 days : 41 - 90 mg/dL7 days - 150 yrs : 70 - 99 mg/dL (fasting), based on the clinical recommendations of the [place] [employer]. [facility] CHEMISTRY BUN 6.0 mg/dL 7 - 22 07/10/2011 LOW [facility] CHEMISTRY Chloride Lvl 106.0 meq/L 95 - 109 07/10/2011 Normal [facility] CHEMISTRY Creatinine Lvl 0.7 mg/dL 0.5 - 1.4 07/10/2011 Normal [facility] CHEMISTRY Sodium Lvl 140.0 meq/L 135 - 145 07/10/2011 Normal [facility] CHEMISTRY CO2 24.0 meq/L 24 - 32 07/10/2011 Normal [facility] CHEMISTRY Potassium Lvl 4.1 meq/L 3.5 - 5.1 07/10/2011 Normal [facility] CHEMISTRY ALT 55.0 U/L 0 - 65 07/10/2011 Normal [facility] CHEMISTRY Calcium Lvl 9.0 mg/dL 8.5 - 10.5 07/10/2011 Normal [facility] CHEMISTRY Albumin Lvl 3.6 g/dL 3.5 - 5.0 07/10/2011 Normal [facility] CHEMISTRY Total Protein 6.7 g/dL 6.4 - 8.4 07/10/2011 Normal [facility] CHEMISTRY Alk Phos 46.0 U/L 39 - 136 07/10/2011 Normal [facility] CHEMISTRY Bili Total 0.3 mg/dL 0.2 - 1.3 07/10/2011 Normal [facility] HEMATOLOGY MPV 9.0 fL 7.4 - 10.4 07/10/2011 Normal [facility] HEMATOLOGY RDW 15.9 % 11.5 - 14.5 07/10/2011 HI [facility] HEMATOLOGY MCH 34.2 pg 27.0 - 31.0 07/10/2011 HI [facility] HEMATOLOGY MCV 99.8 fL 81.0 - 99.0 07/10/2011 HI [facility] HEMATOLOGY Hct 33.3 % 36.0 - 48.0 07/10/2011 LOW [facility] HEMATOLOGY Platelet 215.0 K/CMM 133 - 450 07/10/2011 Normal [facility] HEMATOLOGY MCHC 34.3 g/dL 32.0 - 36.0 07/10/2011 Normal [facility] HEMATOLOGY Hgb 11.4 g/dL 12.0 - 16.0 07/10/2011 LOW [facility] HEMATOLOGY RBC 3.34 M/CMM 4.20 - 5.40 07/10/2011 [facility] HEMATOLOGY WBC 11.4 K/CMM 3.7 - 10.4 07/10/2011 [facility] HEMATOLOGY Hypochrom Slight (07/10/2011 06:24:00) ?? >None Seen 07/10/2011 Normal [facility] HEMATOLOGY Polychrom Slight (07/10/2011 06:24:00) ?? >None Seen 07/10/2011 Normal [facility] HEMATOLOGY Macrocyte 1+ *ABN* (07/10/2011 06:24:00) ?? >None Seen 07/10/2011 ABN [facility] HEMATOLOGY Basophils 0.3 % 0.0 - 1.0 07/10/2011 Normal [facility] HEMATOLOGY Monocytes 5.8 % 2.0 - 12.0 07/10/2011 Normal [facility] HEMATOLOGY Eosinophils 0.1 % 0.0 - 4.0 07/10/2011 Normal [facility] HEMATOLOGY Lymphocytes 9.8 % 20.0 - 40.0 07/10/2011 LOW [facility] HEMATOLOGY Monocytes # 0.7 K/CMM 0.0 - 0.8 07/10/2011 Normal [facility] HEMATOLOGY Basophils # 0.0 K/CMM 0.0 - 0.2 07/10/2011 Normal [facility] HEMATOLOGY Eosinophils # 0.0 K/CMM 0.0 - 0.5 07/10/2011 Normal [facility] HEMATOLOGY Lymphocytes # 1.1 K/CMM 1.0 - 5.5 07/10/2011 Normal [facility] HEMATOLOGY Segs-Bands # 9.6 K/CMM 1.5 - 8.1 07/10/2011 [facility] HEMATOLOGY Segs 84.0 % 45.0 - 75.0 07/10/2011 [facility] HEMATOLOGY Plt Morph Normal (07/10/2011 06:24:00) ?? 07/10/2011 Normal [facility] BEDSIDE GLUCOSE TESTING Comment3 Notify RN/ 07/09/2011 [facility] BACTERIAL - SEROLOGY C diff Toxin Negative (07/07/2011 18:45:00) ?? 07/07/2011 Normal [facility] STOOL TESTS Occult Bld Stl Negative (07/07/2011 18:45:00) ?? >Negative 07/07/2011 Normal [facility] STOOL TESTS Fecal Leukocyte None Seen 4 (07/07/2011 18:45:00) ?? 07/07/2011 Normal 4Interpretive Data: A Value of None Seen, Rare, or Few is Normal. [facility] Microbiology Culture: Stool 07/07/2011 [facility] CHEMISTRY A/G Ratio 1.3 0.7 - 1.6 07/07/2011 Normal [facility] CHEMISTRY Globulin 2.4 g/dL 2.0 - 4.0 07/07/2011 Normal [facility] CHEMISTRY B/C Ratio 12.0 6 - 25 07/07/2011 Normal [facility] CHEMISTRY AGAP 12.3 meq/L 10.0 - 20.0 07/07/2011 Normal [facility] CHEMISTRY ALT 41.0 U/L 0 - 65 07/07/2011 Normal [facility] CHEMISTRY Albumin Lvl 3.2 g/dL 3.5 - 5.0 07/07/2011 LOW [facility] CHEMISTRY AST 10.0 U/L 0 - 37 07/07/2011 Normal [facility] CHEMISTRY Bili Total 0.3 mg/dL 0.2 - 1.3 07/07/2011 Normal [facility] CHEMISTRY Alk Phos 29.0 U/L 39 - 136 07/07/2011 LOW [facility] CHEMISTRY Total Protein 5.6 g/dL 6.4 - 8.4 07/07/2011 LOW [facility] CHEMISTRY Calcium Lvl 8.2 mg/dL 8.5 - 10.5 07/07/2011 LOW [facility] CHEMISTRY CO2 23.0 meq/L 24 - 32 07/07/2011 LOW [facility] CHEMISTRY Creatinine Lvl 0.6 mg/dL 0.5 - 1.4 07/07/2011 Normal [facility] CHEMISTRY BUN 7.0 mg/dL 7 - 22 07/07/2011 Normal [facility] CHEMISTRY Glucose Lvl 86.0 mg/dL 07/07/2011 NA 6Interpretive Data: Reference Ranges : 0 - 7 days : 41 - 90 mg/dL7 days - 150 yrs : 70 - 99 mg/dL (fasting), based on the clinical recommendations of the [place] [employer]. [facility] CHEMISTRY Potassium Lvl 4.3 meq/L 3.5 - 5.1 07/07/2011 Normal [facility] CHEMISTRY Chloride Lvl 108.0 meq/L 95 - 109 07/07/2011 Normal [facility] CHEMISTRY Sodium Lvl 139.0 meq/L 135 - 145 07/07/2011 Normal [facility] CHEMISTRY CHD Risk 3.57 3.90 - 5.80 07/07/2011 LOW [facility] CHEMISTRY LDL 64.0 mg/dL 0 - 129 07/07/2011 Normal [facility] CHEMISTRY HDL 42.0 mg/dL >>=35 07/07/2011 Normal [facility] CHEMISTRY Chol 150.0 mg/dL 120 - 200 07/07/2011 Normal [facility] CHEMISTRY Trig 219.0 mg/dL 0 - 200 07/07/2011 [facility] HEMATOLOGY MPV 8.8 fL 7.4 - 10.4 07/07/2011 Normal [facility] HEMATOLOGY Platelet 175.0 K/CMM 133 - 450 07/07/2011 Normal [facility] HEMATOLOGY MCH 34.2 pg 27.0 - 31.0 07/07/2011 [facility] HEMATOLOGY Hgb 10.3 g/dL 12.0 - 16.0 07/07/2011 LOW [facility] HEMATOLOGY RBC 3.0 M/CMM 4.20 - 5.40 07/07/2011 LOW [facility] HEMATOLOGY MCV 101.3 fL 81.0 - 99.0 07/07/2011 [facility] HEMATOLOGY Hct 30.4 % 36.0 - 48.0 07/07/2011 LOW [facility] HEMATOLOGY WBC 5.8 K/CMM 3.7 - 10.4 07/07/2011 Normal [facility] HEMATOLOGY MCHC 33.8 g/dL 32.0 - 36.0 07/07/2011 Normal [facility] HEMATOLOGY RDW 16.5 % 11.5 - 14.5 07/07/2011 [facility] HEMATOLOGY Macrocyte 1+ *ABN* (07/07/2011 06:00:00) ?? >None Seen 07/07/2011 ABN [facility] HEMATOLOGY Monocytes 8.9 % 2.0 - 12.0 07/07/2011 Normal [facility] HEMATOLOGY Eosinophils 1.5 % 0.0 - 4.0 07/07/2011 Normal [facility] HEMATOLOGY Segs 44.0 % 45.0 - 75.0 07/07/2011 LOW [facility] HEMATOLOGY Lymphocytes 44.8 % 20.0 - 40.0 07/07/2011 [facility] HEMATOLOGY Basophils # 0.0 K/CMM 0.0 - 0.2 07/07/2011 Normal [facility] HEMATOLOGY Eosinophils # 0.1 K/CMM 0.0 - 0.5 07/07/2011 Normal [facility] HEMATOLOGY Monocytes # 0.5 K/CMM 0.0 - 0.8 07/07/2011 Normal [facility] HEMATOLOGY Segs-Bands # 2.6 K/CMM 1.5 - 8.1 07/07/2011 Normal [facility] HEMATOLOGY Basophils 0.8 % 0.0 - 1.0 07/07/2011 Normal [facility] HEMATOLOGY Lymphocytes # 2.6 K/CMM 1.0 - 5.5 07/07/2011 Normal [facility] HEMATOLOGY Hypochrom Slight (07/07/2011 06:00:00) ?? >None Seen 07/07/2011 Normal [facility] HEMATOLOGY Stomatocyte Slight *ABN* (07/07/2011 06:00:00) ?? >None Seen 07/07/2011 [facility]N [facility] HEMATOLOGY Plt Morph Normal (07/07/2011 06:00:00) ?? 07/07/2011 Normal [facility] HEMATOLOGY RBC Morph Normal (07/07/2011 06:00:00) ?? 07/07/2011 Normal [facility] HEMATOLOGY Anisocyte 1+ *ABN* (07/07/2011 06:00:00) ?? >None Seen 07/07/2011 [facility]N [facility] CHEMISTRY Magnesium Lvl 2.0 mg/dL 1.8 - 2.4 07/06/2011 Normal [facility] HEMATOLOGY Sed Rate 7.0 mm/h 0 - 20 07/06/2011 Normal [facility] IMMUNOLOGY CRP, High Sensitivity 1.2 mg/L 07/06/2011 NA 8Interpretive Data: Low Risk: <1.0 mg/LAverage Risk: 1.0 - 3.0 mg/LHigh Risk: >3.0 mg/LInflammation: >10.0 mg/L [facility] CHEMISTRY S Preg Negative *NA* (07/05/2011 23:45:00) ?? >Negative 07/06/2011 NA [facility] CHEMISTRY Lipase Lvl 100.0 U/L 73 - 393 07/06/2011 Normal [facility] CHEMISTRY Globulin 3.9 g/dL 2.0 - 4.0 07/06/2011 Normal [facility] CHEMISTRY A/G Ratio 1.1 0.7 - 1.6 07/06/2011 Normal [facility] CHEMISTRY B/C Ratio 30.0 6 - 25 07/06/2011 HI [facility] CHEMISTRY AGAP 13.7 meq/L 10.0 - 20.0 07/06/2011 Normal [facility] CHEMISTRY AST 19.0 U/L 0 - 37 07/06/2011 Normal [facility] CHEMISTRY Bili Total 0.3 mg/dL 0.2 - 1.3 07/06/2011 Normal [facility] CHEMISTRY ALT 62.0 U/L 0 - 65 07/06/2011 Normal [facility] CHEMISTRY Albumin Lvl 4.3 g/dL 3.5 - 5.0 07/06/2011 Normal [facility] CHEMISTRY Alk Phos 48.0 U/L 39 - 136 07/06/2011 Normal [facility] CHEMISTRY Total Protein 8.2 g/dL 6.4 - 8.4 07/06/2011 Normal [facility] CHEMISTRY Potassium Lvl 4.7 meq/L 3.5 - 5.1 07/06/2011 Normal [facility] CHEMISTRY Sodium Lvl 134.0 meq/L 135 - 145 07/06/2011 LOW [facility] CHEMISTRY CO2 21.0 meq/L 24 - 32 07/06/2011 LOW [facility] CHEMISTRY Calcium Lvl 9.2 mg/dL 8.5 - 10.5 07/06/2011 Normal [facility] CHEMISTRY Chloride Lvl 104.0 meq/L 95 - 109 07/06/2011 Normal [facility] CHEMISTRY Glucose Lvl 97.0 mg/dL 07/06/2011 NA 7Interpretive Data: Reference Ranges : 0 - 7 days : 41 - 90 mg/dL7 days - 150 yrs : 70 - 99 mg/dL (fasting), based on the clinical recommendations of the [place] [employer]. [facility] CHEMISTRY Creatinine Lvl 0.5 mg/dL 0.5 - 1.4 07/06/2011 Normal [facility] CHEMISTRY BUN 15.0 mg/dL 7 - 22 07/06/2011 Normal [facility] HEMATOLOGY MPV 9.0 fL 7.4 - 10.4 07/06/2011 Normal [facility] HEMATOLOGY MCV 99.7 fL 81.0 - 99.0 07/06/2011 HI [facility] HEMATOLOGY MCH 34.8 pg 27.0 - 31.0 07/06/2011 [facility] HEMATOLOGY Platelet 232.0 K/CMM 133 - 450 07/06/2011 Normal [facility] HEMATOLOGY RDW 17.0 % 11.5 - 14.5 07/06/2011 [facility] HEMATOLOGY MCHC 34.9 g/dL 32.0 - 36.0 07/06/2011 Normal [facility] HEMATOLOGY WBC 11.0 K/CMM 3.7 - 10.4 07/06/2011 HI [facility] HEMATOLOGY Hct 37.9 % 36.0 - 48.0 07/06/2011 Normal [facility] HEMATOLOGY RBC 3.8 M/CMM 4.20 - 5.40 07/06/2011 LOW [facility] HEMATOLOGY Hgb 13.2 g/dL 12.0 - 16.0 07/06/2011 Normal [facility] HEMATOLOGY Basophils 0.4 % 0.0 - 1.0 07/06/2011 Normal [facility] HEMATOLOGY Segs-Bands # 5.9 K/CMM 1.5 - 8.1 07/06/2011 Normal [facility] HEMATOLOGY Monocytes # 1.1 K/CMM 0.0 - 0.8 07/06/2011 HI [facility] HEMATOLOGY Lymphocytes # 3.9 K/CMM 1.0 - 5.5 07/06/2011 Normal [facility] HEMATOLOGY Basophils # 0.0 K/CMM 0.0 - 0.2 07/06/2011 Normal [facility] HEMATOLOGY Eosinophils # 0.1 K/CMM 0.0 - 0.5 07/06/2011 Normal [facility] HEMATOLOGY Macrocyte 1+ *ABN* (07/05/2011 23:45:00) ?? >None Seen 07/06/2011 ABN [facility] HEMATOLOGY Monocytes 9.7 % 2.0 - 12.0 07/06/2011 Normal [facility] HEMATOLOGY Lymphocytes 35.5 % 20.0 - 40.0 07/06/2011 Normal [facility] HEMATOLOGY Eosinophils 1.2 % 0.0 - 4.0 07/06/2011 Normal [facility] HEMATOLOGY Segs 53.2 % 45.0 - 75.0 07/06/2011 Normal [facility] URINALYSIS UA WBC None Seen (07/05/2011 23:15:00) ?? >None Seen 07/06/2011 Normal [facility] URINALYSIS UA Sq Epi Occasional /LPF (07/05/2011 23:15:00) ?? >Few 07/06/2011 Normal [facility] URINALYSIS UA RBC None Seen (07/05/2011 23:15:00) ?? >0 - 2 07/06/2011 Normal [facility] URINALYSIS UA Bacteria Occasional /HPF (07/05/2011 23:15:00) ?? >None Seen 07/06/2011 Normal [facility] URINALYSIS UA Ketones Negative mg/dL *NA* (07/05/2011 23:15:00) ?? >Negative 07/06/2011 NA [facility] URINALYSIS UA Protein Negative mg/dL (07/05/2011 23:15:00) ?? >Negative 07/06/2011 Normal [facility] URINALYSIS UA Glucose Negative mg/dL (07/05/2011 23:15:00) ?? >Negative 07/06/2011 Normal [facility] URINALYSIS UA pH 6.0 5.0 - 8.0 07/06/2011 Normal [facility] URINALYSIS UA Spec Grav 1.01 <<=1.030 07/06/2011 Normal [facility] URINALYSIS UA Blood Negative (07/05/2011 23:15:00) ?? >Negative 07/06/2011 Normal [facility] URINALYSIS UA Bili Negative *NA* (07/05/2011 23:15:00) ?? >Negative 07/06/2011 NA [facility] URINALYSIS UA Urobilinogen 0.2 EU/dL 0.1 - 1.0 07/06/2011 Normal [facility] URINALYSIS UA Nitrite Negative (07/05/2011 23:15:00) ?? >Negative 07/06/2011 Normal [facility] URINALYSIS UA Leuk Est Negative (07/05/2011 23:15:00) ?? >Negative 07/06/2011 Normal [facility] URINALYSIS UA Turbidity Clear (07/05/2011 23:15:00) ?? >Clear 07/06/2011 Normal [facility] URINALYSIS UA Color Yellow *NA* (07/05/2011 23:15:00) ?? >Yellow 07/06/2011 NA [facility] CHEMISTRY A/G Ratio 1.1 0.7 - 1.6 06/28/2011 Normal [facility] CHEMISTRY Globulin 3.2 g/dL 2.0 - 4.0 06/28/2011 Normal [facility] CHEMISTRY B/C Ratio 3.0 6 - 25 06/28/2011 LOW [facility] CHEMISTRY Alk Phos 37.0 U/L 39 - 136 06/28/2011 LOW [facility] CHEMISTRY Bili Total 0.3 mg/dL 0.2 - 1.3 06/28/2011 Normal [facility] CHEMISTRY AST 67.0 U/L 0 - 37 06/28/2011 [facility] CHEMISTRY Albumin Lvl 3.4 g/dL 3.5 - 5.0 06/28/2011 LOW [facility] CHEMISTRY ALT 438.0 U/L 0 - 65 06/28/2011 [facility] CHEMISTRY AGAP 12.0 meq/L 10.0 - 20.0 06/28/2011 Normal [facility] CHEMISTRY Creatinine Lvl 0.6 mg/dL 0.5 - 1.4 06/28/2011 Normal [facility] CHEMISTRY Calcium Lvl 8.6 mg/dL 8.5 - 10.5 06/28/2011 Normal [facility] CHEMISTRY Total Protein 6.6 g/dL 6.4 - 8.4 06/28/2011 Normal [facility] CHEMISTRY Potassium Lvl 4.0 meq/L 3.5 - 5.1 06/28/2011 Normal [facility] CHEMISTRY Sodium Lvl 142.0 meq/L 135 - 145 06/28/2011 Normal [facility] CHEMISTRY CO2 23.0 meq/L 24 - 32 06/28/2011 LOW [facility] CHEMISTRY Chloride Lvl 111.0 meq/L 95 - 109 06/28/2011 [facility] CHEMISTRY BUN 2.0 mg/dL 7 - 22 06/28/2011 LOW [facility] CHEMISTRY Glucose Lvl 84.0 mg/dL 06/28/2011 NA 2Interpretive Data: Reference Ranges : 0 - 7 days : 41 - 90 mg/dL7 days - 150 yrs : 70 - 99 mg/dL (fasting), based on the clinical recommendations of the [place] [employer]. [facility] IMMUNOLOGY EBV VCA IgM 0.18 IV <<=0.89 06/28/2011 Normal 6Interpretive Data: Index Value Results Interpretation --------- <=0.90 Negative No detectable IgM Antibody.0.90 - 1.09 Equivocal Repeat testing suggested in 10-14 days.>=1.10 Positive Significant level of detectable VCA IgM Antibody, indicative of current or recent infection. [facility] IMMUNOLOGY CMV IgM 1.07 06/28/2011 NA 5Interpretive Data: Reference Range: Negative : <=0.90 Index Value Equivocal: 0.91 - 1.09 Index Value Positive : >=1.10 Index Value [facility] CHEMISTRY Alk Phos 39.0 U/L 39 - 136 06/27/2011 Normal [facility] CHEMISTRY Bili Total 0.3 mg/dL 0.2 - 1.3 06/27/2011 Normal [facility] CHEMISTRY ALT 672.0 U/L 0 - 65 06/27/2011 HI [facility] CHEMISTRY A/G Ratio 1.3 0.7 - 1.6 06/27/2011 Normal [facility] CHEMISTRY AST 178.0 U/L 0 - 37 06/27/2011 HI [facility] CHEMISTRY Albumin Lvl 3.5 g/dL 3.5 - 5.0 06/27/2011 Normal [facility] CHEMISTRY B/C Ratio 10.0 6 - 25 06/27/2011 Normal [facility] CHEMISTRY Total Protein 6.3 g/dL 6.4 - 8.4 06/27/2011 LOW [facility] CHEMISTRY Creatinine Lvl 0.6 mg/dL 0.5 - 1.4 06/27/2011 Normal [facility] CHEMISTRY Sodium Lvl 140.0 meq/L 135 - 145 06/27/2011 Normal [facility] CHEMISTRY Potassium Lvl 4.1 meq/L 3.5 - 5.1 06/27/2011 Normal [facility] CHEMISTRY Chloride Lvl 109.0 meq/L 95 - 109 06/27/2011 Normal [facility] CHEMISTRY Calcium Lvl 8.5 mg/dL 8.5 - 10.5 06/27/2011 Normal [facility] CHEMISTRY AGAP 12.1 meq/L 10.0 - 20.0 06/27/2011 Normal [facility] CHEMISTRY CO2 23.0 meq/L 24 - 32 06/27/2011 LOW [facility] CHEMISTRY Globulin 2.8 g/dL 2.0 - 4.0 06/27/2011 Normal [facility] CHEMISTRY BUN 6.0 mg/dL 7 - 22 06/27/2011 LOW [facility] CHEMISTRY Glucose Lvl 146.0 mg/dL 06/27/2011 NA 3Interpretive Data: Reference Ranges : 0 - 7 days : 41 - 90 mg/dL7 days - 150 yrs : 70 - 99 mg/dL (fasting), based on the clinical recommendations of the [place] [employer]. [facility] HEMATOLOGY RBC 3.37 M/CMM 4.20 - 5.40 06/27/2011 LOW [facility] HEMATOLOGY Platelet 169.0 K/CMM 133 - 450 06/27/2011 Normal [facility] HEMATOLOGY MPV 9.1 fL 7.4 - 10.4 06/27/2011 Normal [facility] HEMATOLOGY MCV 99.5 fL 81.0 - 99.0 06/27/2011 [facility] HEMATOLOGY Hct 33.6 % 36.0 - 48.0 06/27/2011 LOW [facility] HEMATOLOGY Hgb 11.5 g/dL 12.0 - 16.0 06/27/2011 LOW [facility] HEMATOLOGY MCH 34.2 pg 27.0 - 31.0 06/27/2011 [facility] HEMATOLOGY WBC 7.3 K/CMM 3.7 - 10.4 06/27/2011 Normal [facility] HEMATOLOGY MCHC 34.4 g/dL 32.0 - 36.0 06/27/2011 Normal [facility] HEMATOLOGY RDW 16.4 % 11.5 - 14.5 06/27/2011 [facility] HEMATOLOGY Basophils 0.3 % 0.0 - 1.0 06/27/2011 Normal [facility] HEMATOLOGY Segs-Bands # 4.4 K/CMM 1.5 - 8.1 06/27/2011 Normal [facility] HEMATOLOGY Eosinophils # 0.3 K/CMM 0.0 - 0.5 06/27/2011 Normal [facility] HEMATOLOGY Monocytes # 0.8 K/CMM 0.0 - 0.8 06/27/2011 Normal [facility] HEMATOLOGY Lymphocytes # 1.8 K/CMM 1.0 - 5.5 06/27/2011 Normal [facility] HEMATOLOGY Basophils # 0.0 K/CMM 0.0 - 0.2 06/27/2011 Normal [facility] HEMATOLOGY Macrocyte 1+ *ABN* (06/27/2011 04:01:00) ?? >None Seen 06/27/2011 ABN [facility] HEMATOLOGY Segs 60.5 % 45.0 - 75.0 06/27/2011 Normal [facility] HEMATOLOGY Monocytes 10.3 % 2.0 - 12.0 06/27/2011 Normal [facility] HEMATOLOGY Eosinophils 4.1 % 0.0 - 4.0 06/27/2011 [facility] HEMATOLOGY Lymphocytes 24.8 % 20.0 - 40.0 06/27/2011 Normal [facility] URINALYSIS UA Color Yellow *NA* (06/26/2011 14:00:00) ?? >Yellow 06/26/2011 NA [facility] URINALYSIS UA Urobilinogen 0.2 EU/dL 0.1 - 1.0 06/26/2011 Normal [facility] URINALYSIS UA Blood Negative (06/26/2011 14:00:00) ?? >Negative 06/26/2011 Normal [facility] URINALYSIS UA Ketones 15 mg/dL *ABN* (06/26/2011 14:00:00) ?? >Negative 06/26/2011 ABN [facility] URINALYSIS UA Glucose Negative (06/26/2011 14:00:00) ?? >Negative 06/26/2011 Normal [facility] URINALYSIS UA Protein Negative (06/26/2011 14:00:00) ?? >Negative 06/26/2011 Normal [facility] URINALYSIS UA pH 6.5 5.0 - 8.0 06/26/2011 Normal [facility] URINALYSIS UA Spec Grav 1.01 <<=1.030 06/26/2011 Normal [facility] URINALYSIS UA Leuk Est Negative (06/26/2011 14:00:00) ?? >Negative 06/26/2011 Normal [facility] URINALYSIS UA Nitrite Negative (06/26/2011 14:00:00) ?? >Negative 06/26/2011 Normal [facility] URINALYSIS UA Turbidity Slight Cloudy (06/26/2011 14:00:00) ?? >Clear 06/26/2011 Normal [facility] URINALYSIS UA Bili Negative 1 (06/26/2011 14:00:00) ?? >Negative 06/26/2011 Normal 1Result Comment: confirmed by ictotest [facility] URINALYSIS UA WBC 0-2 /HPF (06/26/2011 14:00:00) ?? >None Seen 06/26/2011 Normal [facility] URINALYSIS UA Bacteria Few /HPF (06/26/2011 14:00:00) ?? >None Seen 06/26/2011 Normal [facility] URINALYSIS UA RBC None Seen (06/26/2011 14:00:00) ?? >0 - 2 06/26/2011 Normal [facility] URINALYSIS Micro? Performed (06/26/2011 14:00:00) ?? 06/26/2011 Normal [facility] URINALYSIS UA Sq Epi Few /LPF (06/26/2011 14:00:00) ?? >Few 06/26/2011 Normal [facility] Microbiology Culture: Urine 06/26/2011 [facility] CHEMISTRY AST 653.0 U/L 0 - 37 06/26/2011 [facility] CHEMISTRY Bili Total 0.7 mg/dL 0.2 - 1.3 06/26/2011 Normal [facility] CHEMISTRY Globulin 4.2 g/dL 2.0 - 4.0 06/26/2011 [facility] CHEMISTRY Albumin Lvl 4.7 g/dL 3.5 - 5.0 06/26/2011 Normal [facility] CHEMISTRY ALT 1225.0 U/L 0 - 65 06/26/2011 [facility] CHEMISTRY Chloride Lvl 102.0 meq/L 95 - 109 06/26/2011 Normal [facility] CHEMISTRY Sodium Lvl 135.0 meq/L 135 - 145 06/26/2011 Normal [facility] CHEMISTRY Potassium Lvl 3.6 meq/L 3.5 - 5.1 06/26/2011 Normal [facility] CHEMISTRY Creatinine Lvl 0.8 mg/dL 0.5 - 1.4 06/26/2011 Normal [facility] CHEMISTRY B/C Ratio 23.0 6 - 25 06/26/2011 Normal [facility] CHEMISTRY CO2 23.0 meq/L 24 - 32 06/26/2011 LOW [facility] CHEMISTRY BUN 18.0 mg/dL 7 - 22 06/26/2011 Normal [facility] CHEMISTRY AGAP 13.6 meq/L 10.0 - 20.0 06/26/2011 Normal [facility] CHEMISTRY Calcium Lvl 9.7 mg/dL 8.5 - 10.5 06/26/2011 Normal [facility] CHEMISTRY Total Protein 8.9 g/dL 6.4 - 8.4 06/26/2011 [facility] CHEMISTRY Glucose Lvl 88.0 mg/dL 06/26/2011 NA 4Interpretive Data: Reference Ranges : 0 - 7 days : 41 - 90 mg/dL7 days - 150 yrs : 70 - 99 mg/dL (fasting), based on the clinical recommendations of the [place] [employer]. [facility] CHEMISTRY Alk Phos 48.0 U/L 39 - 136 06/26/2011 Normal [facility] CHEMISTRY A/G Ratio 1.1 0.7 - 1.6 06/26/2011 Normal [facility] CHEMISTRY Amylase Lvl 17.0 U/L 25 - 115 06/26/2011 LOW [facility] CHEMISTRY Lipase Lvl 91.0 U/L 73 - 393 06/26/2011 Normal [facility] HEMATOLOGY Sed Rate 12.0 mm/h 0 - 20 06/26/2011 Normal [facility] HEMATOLOGY MCV 98.6 fL 81.0 - 99.0 06/26/2011 Normal [facility] HEMATOLOGY MCHC 34.5 g/dL 32.0 - 36.0 06/26/2011 Normal [facility] HEMATOLOGY MCH 34.0 pg 27.0 - 31.0 06/26/2011 HI [facility] HEMATOLOGY RDW 16.1 % 11.5 - 14.5 06/26/2011 [facility] HEMATOLOGY Platelet 218.0 K/CMM 133 - 450 06/26/2011 Normal [facility] HEMATOLOGY MPV 8.9 fL 7.4 - 10.4 06/26/2011 Normal [facility] HEMATOLOGY WBC 10.8 K/CMM 3.7 - 10.4 06/26/2011 [facility] HEMATOLOGY Hgb 14.6 g/dL 12.0 - 16.0 06/26/2011 Normal [facility] HEMATOLOGY Hct 42.2 % 36.0 - 48.0 06/26/2011 Normal [facility] HEMATOLOGY RBC 4.28 M/CMM 4.20 - 5.40 06/26/2011 Normal [facility] HEMATOLOGY Basophils # 0.1 K/CMM 0.0 - 0.2 06/26/2011 Normal [facility] HEMATOLOGY Eosinophils # 0.2 K/CMM 0.0 - 0.5 06/26/2011 Normal [facility] HEMATOLOGY Segs-Bands # 8.3 K/CMM 1.5 - 8.1 06/26/2011 [facility] HEMATOLOGY Lymphocytes # 1.5 K/CMM 1.0 - 5.5 06/26/2011 Normal [facility] HEMATOLOGY Monocytes # 0.7 K/CMM 0.0 - 0.8 06/26/2011 Normal [facility] HEMATOLOGY Monocytes 6.9 % 2.0 - 12.0 06/26/2011 Normal [facility] HEMATOLOGY Plt Morph Normal (06/26/2011 10:15:00) ?? 06/26/2011 Normal [facility] HEMATOLOGY Lymphocytes 13.6 % 20.0 - 40.0 06/26/2011 LOW [facility] HEMATOLOGY Segs 77.0 % 45.0 - 75.0 06/26/2011 [facility] HEMATOLOGY RBC Morph Normal (06/26/2011 10:15:00) ?? 06/26/2011 Normal [facility] HEMATOLOGY Basophils 0.5 % 0.0 - 1.0 06/26/2011 Normal [facility] HEMATOLOGY Eosinophils 2.0 % 0.0 - 4.0 06/26/2011 Normal [facility] IMMUNOLOGY Hep Bs Ag Negative *NA* (06/26/2011 10:15:00) ?? >Negative 06/26/2011 NA [facility] IMMUNOLOGY Hep B Core IgM Negative *NA* (06/26/2011 10:15:00) ?? >Negative 06/26/2011 NA [facility] IMMUNOLOGY Hep A IgM Negative *NA* (06/26/2011 10:15:00) ?? >Negative 06/26/2011 NA [facility] IMMUNOLOGY Hep C Ab Negative *NA* (06/26/2011 10:15:00) ?? >Negative 06/26/2011 NA [facility] Vital Signs Vital Sign Value Date Comments Source Heart Rate 64 02/01/2015 [facility] Respitory Rate 18 02/01/2015 [facility] Systolic (mm Hg) 118 02/01/2015 [facility] Diastolic (mm Hg) 64 02/01/2015 [facility] Temperature Oral (F) 98.2 F 02/01/2015 [facility] Temperature Oral (F) 98.0 F 02/01/2015 [facility] Respitory Rate 17 02/01/2015 [facility] Systolic (mm Hg) 112 02/01/2015 [facility] Diastolic (mm Hg) 62 02/01/2015 [facility] Heart Rate 78 02/01/2015 [facility] Diastolic (mm Hg) 94 02/01/2015 [facility] Systolic (mm Hg) 143 02/01/2015 [facility] Temperature Oral (F) 97.9 F 02/01/2015 [facility] Heart Rate 104 02/01/2015 [facility] Weight 90.909 02/01/2015 [facility] BMI Calculated 40.48 02/01/2015 [facility] Height 149.86 cm 02/01/2015 [facility] Respitory Rate 20 02/01/2015 [facility] Weight 90.909 06/23/2012 [facility] Weight 79.545 01/09/2012 [facility] Height 149.86 cm 01/09/2012 [facility] Weight 79.545 01/09/2012 [facility] Height 149.86 cm 01/09/2012 [facility] Weight 79.545 01/08/2012 [facility] Height 149.86 cm 01/08/2012 [facility] Height 149.86 cm 01/07/2012 [facility] [place] 79.545 01/07/2012 [facility] [place] Weight 75.000 01/03/2012 [facility] Height 149.86 cm 01/03/2012 [facility] Weight 53.182 12/07/2011 [facility] Height 149.86 cm 12/07/2011 [facility] Weight 79.545 12/06/2011 [facility] Height 149.86 cm 12/06/2011 [facility] Weight 77.273 11/10/2011 [facility] Height 149.86 cm 11/10/2011 [facility] Heart Rate 71 11/10/2011 [facility] [place] Temperature Oral (F) 97.8 F 11/10/2011 [facility] [place] Respitory Rate 20 11/10/2011 [facility] [place] Diastolic (mm Hg) 59 11/10/2011 [facility] [place] Systolic (mm Hg) 104 11/10/2011 [facility] [place] Diastolic (mm Hg) 78 11/09/2011 [facility] [place] Respitory Rate 20 11/09/2011 [facility] [place] Heart Rate 86 11/09/2011 [facility] [place] Systolic (mm Hg) 115 11/09/2011 [facility] [place] Temperature Oral (F) 97.8 F 11/09/2011 [facility] [place] Heart Rate 83 11/09/2011 [facility] [place] Respitory Rate 20 11/09/2011 [facility] [place] Systolic (mm Hg) 101 11/09/2011 [facility] [place] Temperature Oral (F) 97.9 F 11/09/2011 [facility] [place] Diastolic (mm Hg) 61 11/09/2011 [facility] [place] Height 149.86 cm 11/08/2011 [facility] [place] Weight 77.273 11/08/2011 [facility] [place] Respitory Rate 18 10/14/2011 [facility] Heart Rate 73 10/14/2011 [facility] Diastolic (mm Hg) 83 10/14/2011 [facility] Systolic (mm Hg) 132 10/14/2011 [facility] Temperature Oral (F) 98.4 F 10/14/2011 [facility] Height 149.86 cm 10/14/2011 [facility] Heart Rate 99 10/14/2011 [facility] Diastolic (mm Hg) 97 10/14/2011 [facility] Respitory Rate 18 10/14/2011 [facility] Temperature Oral (F) 98.0 F 10/14/2011 [facility] Systolic (mm Hg) 174 10/14/2011 [facility] Weight 75.000 10/14/2011 [facility] Respitory Rate 18 09/17/2011 [facility] Temperature Oral (F) 98.4 F 09/17/2011 [facility] Systolic (mm Hg) 130 09/17/2011 [facility] Diastolic (mm Hg) 85 09/17/2011 [facility] Heart Rate 85 09/17/2011 [facility] Height 149.86 cm 09/16/2011 [facility] Weight 77.273 09/16/2011 [facility] Systolic (mm Hg) 131 09/16/2011 [facility] Respitory Rate 18 09/16/2011 [facility] Temperature Oral (F) 97.8 F 09/16/2011 [facility] Diastolic (mm Hg) 86 09/16/2011 [facility] Heart Rate 99 09/16/2011 [facility] Temperature Oral (F) 98.9 F 07/11/2011 [facility] Heart Rate 81.0 07/11/2011 [facility] Systolic (mm Hg) 119.0 07/11/2011 [facility] Respitory Rate 20.0 07/11/2011 [facility] Diastolic (mm Hg) 70.0 07/11/2011 [facility] Diastolic (mm Hg) 90.0 07/11/2011 [facility] Temperature Oral (F) 98.3 F 07/11/2011 [facility] Systolic (mm Hg) 125.0 07/11/2011 [facility] Respitory Rate 20.0 07/11/2011 [facility] Heart Rate 86.0 07/11/2011 [facility] Diastolic (mm Hg) 66.0 07/11/2011 [facility] Systolic (mm Hg) 100.0 07/11/2011 [facility] Respitory Rate 18.0 07/11/2011 [facility] Heart Rate 89.0 07/11/2011 [facility] Temperature Oral (F) 97.7 F 07/11/2011 [facility] Height 149.86 cm 07/06/2011 [facility] Weight 81.818 07/06/2011 [facility] Height 149.86 cm 07/06/2011 [facility] Diastolic (mm Hg) 75.0 06/28/2011 [facility] Systolic (mm Hg) 116.0 06/28/2011 [facility] Temperature Oral (F) 98.6 F 06/28/2011 [facility] Respitory Rate 18.0 06/28/2011 [facility] Heart Rate 89.0 06/28/2011 [facility] Respitory Rate 18.0 06/28/2011 [facility] Temperature Oral (F) 98.2 F 06/28/2011 [facility] Heart Rate 80.0 06/28/2011 [facility] Systolic (mm Hg) 95.0 06/28/2011 [facility] Diastolic (mm Hg) 59.0 06/28/2011 [facility] Temperature Oral (F) 98.3 F 06/28/2011 [facility] Respitory Rate 18.0 06/28/2011 [facility] Heart Rate 69.0 06/28/2011 [facility] Diastolic (mm Hg) 56.0 06/28/2011 [facility] Systolic (mm Hg) 101.0 06/28/2011 [facility] Height 149.86 cm 06/26/2011 [facility] Weight 80.455 06/26/2011 [facility] Height 149.86 cm 06/26/2011 [facility] Weight 80.455 06/26/2011 [facility] Encounters Location Location Details Encounter Type Encounter Number Reason For Visit Attending Provider ADM Date DC Date Status Source [facility] Inpatient [id number] HYPOGLYCEMIA, PARASTESIA, NUMBNESS QUAN ALVAREZ 11/30/2003 12/03/2003 Active [facility] Emergency [id number] DIZZY, SHAKING KEVYN SMECK 08/22/2004 08/22/2004 Active [facility] OU [id number] SEVERE ABDOMINAL PAIN UZMA SALEK 12/12/2009 12/13/2009 Active [facility] Emergency [id number] SHOULDER/ARM PAIN BUBBA GUERIN 10/01/2010 10/01/[address] [facility] Emergency [id number] RT SIDE PAIN ARNIE FARMER 01/16/2011 01/16/[address] [facility] Emergency [id number] VOMITING NANI LUIS 02/02/2011 02/02/[address] [facility] Emergency [id number] FAINTING SPELLS NANI LUIS 02/09/2011 02/10/[address] [facility] Emergency [id number] FALL INJURY SHAILESH PELON 02/19/[address] [facility] Emergency [id number] DIZZINESS KEN ARCHER 02/19/2011 02/19/[address] [facility] Outpatient [id number] STAT CT OF HEAD NON PHYSICIAN 02/21/2011 02/21/[address] [facility] Inpatient [id number] DIZZINESS, SYNCOPE, DYSPNEA LUANN MOLINA 02/26/2011 02/28/2011 Active [facility] [id number] KURT SIDDIQUI 05/15/2011 05/15/[address] [facility] OU [id number] JAMI LUNA 05/16/2011 05/17/[address] [facility] OU [id number] JAMI LUNA 06/26/2011 06/28/2011 Active [facility] [id number] JUNE LEYVAM 07/06/2011 07/11/2011 Active [facility] [id number] FRANCES POPAT 09/16/2011 09/16/2011 Active [facility] [id number] ANKLE/BACK PAIN NADIM ORTHODOX 10/14/2011 10/14/2011 Active [facility] [place] [id number] UZMA SALEK 11/08/2011 11/09/2011 Active [facility] [id number] MARLA NRIAGU 11/09/2011 11/10/2011 Active [facility] [id number] KEN GIANNI 12/06/2011 12/06/2011 Active [facility] [id number] NADIM ORTHODOX 12/07/2011 12/08/2011 Active [facility] [id number] TOBIAS JONES 01/03/2012 01/03/2012 Active [facility] [place] [place] [facility] [id number] KERI CARLIN 01/07/2012 01/07/2012 Active [facility] [id number] NADIM ORTHODOX 01/08/2012 01/08/2012 Active [facility] [id number] FRANCES POPAT 01/08/2012 01/08/2012 Active [facility] [id number] MARLA NRIAGU 01/08/2012 01/08/2012 Active [facility] [id number] NADIM ORTHODOX 06/22/2012 06/22/2012 Active [facility] [id number] Kurt Quezada 02/01/2015 02/01/2015 [place] [facility] Procedures Procedure Code Date Perfomer Comments Source Hysterectomy [id number] [place]
--- OUTSIDE RECORDS SUMMARY | 2018-11-14 10:46 | XMS REPORT | CCD ---
Author Author Auto Generated Organization [facility] Address Unknown Phone Unavailable Care Team Providers Care Match Maker Name Role Phone Ariel Velez CP Allergies, Adverse Reactions, Alerts Substance Reaction Status Darvocet-N 100 Active fentanyl Active NKFA Active NSAIDs Active Stadol Active Toradol Active traMADOL Active Problem List Condition Effective Dates Status Acute pain Active Anxiety hyperventilation Active Asthma < 02/26/2011 Inactive Childhood asthma Active Chronic cluster headache Active Cough Active Depression Active H/O: vertigo Active HVS - Hyperventilation syndrome Active Hypoglycemia Active Migraine Active Pneumonia Active Shortness of breath Active Sore throat Active Medications Medication Instructions Start Date End Date Status [place] 5/325 oral 1-2 tab, PO, Q4-6H, PRN, 30 tab, 09/16/2011 09/21/2011 Ordered tablet Pain, Substitution Allowed, Maintenance Flexeril 10 mg oral 10 mg, PO, TID, PRN, 30 tab, Muscle 09/16/2011 09/23/2011 Ordered tablet Spasm, Substitution Allowed Dilaudid 1 mg, 1 mL, Route: IM, Drug form: 09/16/2011 09/16/2011 Completed SOLN, ONCE, Priority: STAT, Start date: 09/16/11 18:29:00, Stop date: 09/16/11 18:29:00 orphenadrine 60 mg, 2 mL, Route: IM, Drug form: 09/16/2011 09/16/2011 Completed INJ, ONCE, Priority: STAT, Start date: 09/16/11 18:29:00, Stop date: 09/16/11 18:29:00 Dilaudid 1 mg, 1 mL, Route: IVP, Drug form: 09/16/2011 09/16/2011 Completed SOLN, ONCE, Priority: STAT, Start date: 09/16/11 21:27:00, Stop date: 09/16/11 21:27:00 Vital Signs Most recent to oldest [Reference Range]: 1 2 Height 149.86 cm (09/16/2011 17:18:00) Temperature Oral [96.4-99.1 DegF] 98.4 DegF (09/16/2011 21:30:00) 97.8 DegF (09/16/2011 17:14:00) Systolic Blood Pressure [90-140 mmHg] 130 mmHg (09/16/2011 21:30:00) 131 mmHg (09/16/2011 17:14:00) Diastolic Blood Pressure [60-90 mmHg] 85 mmHg (09/16/2011 21:30:00) 86 mmHg (09/16/2011 17:14:00) Respiratory Rate [14-20 BRMIN] 18 BRMIN (09/16/2011 21:30:00) 18 BRMIN (09/16/2011 17:14:00) Peripheral Pulse Rate [60-100 bpm] 85 bpm (09/16/2011 21:30:00) 99 bpm (09/16/2011 17:14:00) Weight 77.273 kg (09/16/2011 17:18:00)
--- OUTSIDE RECORDS SUMMARY | 2018-11-14 10:46 | XMS REPORT | CCD ---
Author Author Auto Generated Organization [facility] [place] Address Unknown Phone Unavailable Care Team Providers Care Lube Technician Name Role Phone Neal Valdivia CP Allergies, Adverse Reactions, Alerts Substance Reaction [...]
--- OUTSIDE RECORDS SUMMARY | 2018-11-14 10:46 | XMS REPORT | CCD ---
Author Author Auto Generated Organization [facility] Address Unknown Phone Unavailable Care Team Providers Care Hospital Admitting Clerk Name Role Phone Nitin Bassett CP Allergies, Adverse Reactions, Alerts Substance Reaction [...] Medication Instructions Start Date End Date Status Zofran 4 mg, Route: PO, Drug form: TABDIS, 10/14/2011 10/14/2011 Completed ONCE, Priority: STAT, Start date: 10/14/11 13:56:00, Stop date: 10/14/11 13:56:00 morphine Sulfate 4 mg, Route: IM, ONCE, Start date: 10/14/2011 10/14/2011 Completed 10/14/11 13:55:00, Stop date: 10/14/11 13:55:00 Flexeril 10 mg oral 10 mg, PO, TID, PRN, 30 tab, Muscle 10/14/2011 10/24/2011 Ordered tablet Spasm, Substitution Allowed morphine Sulfate 4 mg, Route: IVP, ONCE, Priority: 10/14/2011 10/14/2011 Completed STAT, Start date: 10/14/11 15:42:00, Stop date: 10/14/11 15:42:00 Vital Signs Most recent to oldest [Reference Range]: 1 2 Height 149.86 cm (10/14/2011 13:21:00) Temperature Oral [96.4-99.1 DegF] 98.4 DegF (10/14/2011 15:58:00) 98.0 DegF (10/14/2011 13:21:00) Systolic Blood Pressure [90-140 mmHg] 132 mmHg (10/14/2011 15:58:00) 174 mmHg *HI* (10/14/2011 13:21:00) Diastolic Blood Pressure [60-90 mmHg] 83 mmHg (10/14/2011 15:58:00) 97 mmHg *HI* (10/14/2011 13:21:00) Respiratory Rate [14-20 BRMIN] 18 BRMIN (10/14/2011 15:58:00) 18 BRMIN (10/14/2011 13:21:00) Peripheral Pulse Rate [60-100 bpm] 73 bpm (10/14/2011 15:58:00) 99 bpm (10/14/2011 13:21:00) Weight 75.000 kg (10/14/2011 13:21:00)
--- OUTSIDE RECORDS SUMMARY | 2018-11-14 10:46 | XMS REPORT | CCD ---
Author Author Auto Generated Organization [facility] Address Unknown Phone Unavailable Care Team Providers Care Senior Windows Engineer Name Role Phone Neal Valdivia CP Allergies, [...] Medication Instructions Start Date End Date Status Valium 5 mg, 1 tab, Route: PO, Drug form: 11/08/2011 11/09/2011 Discontinued TAB, ONCALL, PRN See Nurse's Notes, Start date: 11/08/11 13:25:00, Duration: 2 day, Stop date: 11/10/11 13:24:00 Valium 5 mg, 1 tab, Route: PO, Drug form: 11/08/2011 11/08/2011 Completed TAB, ONCALL, Start date: 11/08/11 14:00:00, Duration: 2 day, Stop date: 11/10/11 13:59:00 Klonopin 0.5 mg, 1 tab, Route: PO, Drug 11/08/2011 11/09/2011 Discontinued form: TAB, Q6H, PRN See Nurse's Notes, Start date: 11/08/11 13:24:00, Duration: 30 day, Stop date: 12/08/11 13:23:00 Lipitor 20 mg, 1 tab, Route: PO, Drug form: 11/09/2011 11/09/2011 Discontinued TAB, QPM, Start date: 11/09/11 17:00:00, Duration: 30 day, Stop date: 12/08/11 17:00:00 Restoril 15 mg, 1 cap, Route: PO, Drug form: 11/08/2011 11/09/2011 Discontinued CAP, Bedtime, Start date: 11/08/11 21:00:00, Duration: 30 day, Stop date: 12/07/11 21:00:00 Zofran 4 mg, 2 mL, Route: IVP, Drug form: 11/08/2011 11/09/2011 Discontinued INJ, Q8H, PRN Nausea & Vomiting, Start date: 11/08/11 18:15:00, Duration: 30 day, Stop date: 12/08/11 18:14:00 Dextrose 5% with 1,000 mL, Rate: 80 ml/hr, Infuse 11/09/2011 11/09/2011 Discontinued 0.9% NaCl IV 1,000 over: 12.6 hr, Route: IV, Total mL + potassium Volume: 1,005, Start date: 11/09/11 chloride 10 mEq 16:30:00, Duration: 30 day, Stop date: 12/09/11 16:29:00 Protonix 40 mg, Route: IVP, Before Dinner, 11/09/2011 11/09/2011 Discontinued Start date: 11/09/11 16:30:00, Duration: 30 day, Stop date: 12/08/11 16:30:00 Pamelor 25 mg, 1 cap, Route: PO, Drug form: 11/09/2011 11/09/2011 Discontinued CAP, Bedtime, Start date: 11/09/11 21:00:00, Duration: 30 day, Stop date: 12/08/11 21:00:00 Reglan 10 mg, 2 mL, Route: IV, Drug form: 11/09/2011 11/09/2011 Discontinued INJ, Q6H, Start date: 11/09/11 16:00:00, Stop date: 12/09/11 12:00:00 Dilaudid 1 mg, 0.5 mL, Route: IV, Drug form: 11/09/2011 11/09/2011 Discontinued INJ, Q8H, PRN Pain, Start date: 11/09/11 16:00:00, Duration: 30 day, Stop date: 12/09/11 15:59:00 Antivert 25 mg, 1 tab, Route: PO, Drug form: 11/08/2011 11/09/2011 Discontinued TAB, Q8H, PRN Dizziness, Start date: 11/08/11 16:00:00, Stop date: 12/08/11 12:00:00 Skelaxin 800 mg, 1 tab, Route: PO, Drug 11/08/2011 11/09/2011 Discontinued form: TAB, Q8H, Start date: 11/08/11 16:00:00, Duration: 30 day, Stop date: 12/08/11 12:00:00 Dilaudid 1 mg, 0.5 mL, Route: IV, Drug form: 11/09/2011 11/09/2011 Completed INJ, ONCE, Start date: 11/09/11 16:00:00, Stop date: 11/09/11 16:00:00 Vital Signs Most recent to oldest [Reference Range]: 1 2 3 Height 149.86 cm (11/08/2011 12:22:00) Temperature Oral [96.4-99.1 DegF] 97.8 DegF (11/09/2011 20:04:00) 97.8 DegF (11/09/2011 16:00:00) 97.9 DegF (11/09/2011 11:46:00) Systolic Blood Pressure [90-140 mmHg] 104 mmHg (11/09/2011 20:04:00) 115 mmHg (11/09/2011 16:00:00) 101 mmHg (11/09/2011 11:46:00) Diastolic Blood Pressure [60-90 mmHg] 59 mmHg *LOW* (11/09/2011 20:04:00) 78 mmHg (11/09/2011 16:00:00) 61 mmHg (11/09/2011 11:46:00) Respiratory Rate [14-20 BRMIN] 20 BRMIN (11/09/2011 20:04:00) 20 BRMIN (11/09/2011 16:00:00) 20 BRMIN (11/09/2011 11:46:00) Peripheral Pulse Rate [60-100 bpm] 71 bpm (11/09/2011 20:04:00) 86 bpm (11/09/2011 16:00:00) 83 bpm (11/09/2011 11:46:00) Weight 77.273 kg (11/08/2011 12:22:00) Results CHEMISTRY Most recent to oldest [Reference Range]: 1 2 Sodium Lvl [135-145 mEq/L] 142 mEq/L (11/08/2011 17:50:00) Potassium Lvl [3.5-5.1 mEq/L] 3.9 mEq/L (11/08/2011 17:50:00) Chloride Lvl [95-109 mEq/L] 106 mEq/L (11/08/2011 17:50:00) CO2 [24-32 mEq/L] 24 mEq/L (11/08/2011 17:50:00) AGAP [10.0-20.0 mEq/L] 15.9 mEq/L (11/08/2011 17:50:00) Creatinine Lvl [0.5-1.4 mg/dL] 0.6 mg/dL (11/08/2011 17:50:00) BUN [7-22 mg/dL] 9 mg/dL (11/08/2011 17:50:00) Glucose Lvl 105 mg/dL 1 *NA* (11/08/2011 17:50:00) Total Protein [6.4-8.4 g/dL] 7.3 g/dL (11/08/2011 17:50:00) Albumin Lvl [3.5-5.0 g/dL] 4.0 g/dL (11/08/2011 17:50:00) Globulin [2.0-4.0 g/dL] 3.3 g/dL (11/08/2011 17:50:00) A/G Ratio [0.7-1.6] 1.2 (11/08/2011 17:50:00) Calcium Lvl [8.5-10.5 mg/dL] 9.6 mg/dL (11/08/2011 17:50:00) ALT [0-65 U/L] 24 U/L (11/08/2011 17:50:00) AST [0-37 U/L] 14 U/L (11/08/2011 17:50:00) Alk Phos [39-136 U/L] 45 U/L (11/08/2011 17:50:00) Bili Total [0.2-1.3 mg/dL] 0.4 mg/dL (11/08/2011 17:50:00) Bili Direct [0.0-0.3 mg/dL] 0.1 mg/dL (11/08/2011 17:50:00) Bili Indirect [0.0-1.0 mg/dL] 0.3 mg/dL (11/08/2011 17:50:00) CHD Risk [3.90-5.80] 4.00 (11/08/2011 17:50:00) Chol [120-200 mg/dL] 240 mg/dL *HI* (11/08/2011 17:50:00) Trig [0-200 mg/dL] 220 mg/dL *HI* (11/08/2011 17:50:00) HDL [>=35 mg/dL] 60 mg/dL (11/08/2011 17:50:00) LDL [0-129 mg/dL] 136 mg/dL *HI* (11/08/2011 17:50:00) Hgb A1C 5.6 % 2 *NA* (11/08/2011 17:50:00) T3 Uptake [31-39 %] 33 % (11/08/2011 17:50:00) 32 % (11/08/2011 17:50:00) T4 [4.7-13.3 ug/dl] 6.0 ug/dl (11/08/2011 17:50:00) 5.0 ug/dl (11/08/2011 17:50:00) FTI 1.6 *NA* (11/08/2011 17:50:00) 2.0 *NA* (11/08/2011 17:50:00) TSH [0.360-3.740 uIU/mL] 0.440 uIU/mL (11/08/2011 17:50:00) 0.437 uIU/mL (11/08/2011 17:50:00) 1Interpretive Data: Reference Ranges : 0 - 7 days : 41 - 90 mg/dL7 days - 150 yrs : 70 - 99 mg/dL (fasting), based on the clinical recommendations of the [place] [employer]. 2Interpretive Data: HbA1C% eAG(mg/dL) Interpretation 6.0 126 Very good control 6.5 140 Very good control 7.0 154 Good Control 7.5 169 Good Control 8.0 183 Marginal Control, take action to lower 8.5 197 Marginal Control, take action to lower 9.0 212 Poor Control, take action to lower 9.5 226 Poor Control, take action to lower10.0 240 Poor Control, take action to lower HEMATOLOGY Most recent to oldest [Reference Range]: 1 2 WBC [3.7-10.4 K/CMM] 9.7 K/CMM (11/08/2011 17:50:00) RBC [4.20-5.40 M/CMM] 3.99 M/CMM *LOW* (11/08/2011 17:50:00) Hgb [12.0-16.0 g/dL] 13.3 g/dL (11/08/2011 17:50:00) Hct [36.0-48.0 %] 39.1 % (11/08/2011 17:50:00) MCV [81.0-99.0 fL] 98.1 fL (11/08/2011 17:50:00) MCH [27.0-31.0 pg] 33.3 pg *HI* (11/08/2011 17:50:00) MCHC [32.0-36.0 g/dL] 33.9 g/dL (11/08/2011 17:50:00) RDW [11.5-14.5 %] 14.6 % *HI* (11/08/2011 17:50:00) Platelet [133-450 K/CMM] 204 K/CMM (11/08/2011 17:50:00) MPV [7.4-10.4 fL] 9.1 fL (11/08/2011 17:50:00) Segs [45.0-75.0 %] 64.0 % (11/08/2011 17:50:00) Lymphocytes [20.0-40.0 %] 26.1 % (11/08/2011 17:50:00) Monocytes [2.0-12.0 %] 8.2 % (11/08/2011 17:50:00) Eosinophils [0.0-4.0 %] 0.6 % (11/08/2011 17:50:00) Basophils [0.0-1.0 %] 1.1 % *HI* (11/08/2011 17:50:00) Segs-Bands # [1.5-8.1 K/CMM] 6.2 K/CMM (11/08/2011 17:50:00) Lymphocytes # [1.0-5.5 K/CMM] 2.5 K/CMM (11/08/2011 17:50:00) Monocytes # [0.0-0.8 K/CMM] 0.8 K/CMM (11/08/2011 17:50:00) Eosinophils # [0.0-0.5 K/CMM] 0.1 K/CMM (11/08/2011 17:50:00) Basophils # [0.0-0.2 K/CMM] 0.1 K/CMM (11/08/2011 17:50:00) Macrocyte [None Seen] 1+ *ABN* (11/08/2011 17:50:00) Sed Rate [0-20 mm/hr] 11 mm/hr (11/08/2011 17:50:00) IMMUNOLOGY Most recent to oldest [Reference Range]: 1 2 SANDRO [Negative] Negative (11/08/2011 17:50:00)
--- OUTSIDE RECORDS SUMMARY | 2018-11-14 10:46 | XMS REPORT | CCD ---
Author Author Auto Generated Organization [facility] Address Unknown Phone Unavailable Care Team Providers Care Food Service Utility Worker Name Role Phone Mary Pierre CP Allergies, Adverse Reactions, Alerts Substance Reaction [...] Medication Instructions Start Date End Date Status Flexeril 10 mg oral 10 mg, PO, TID, PRN, 30 tab, Muscle 01/03/2012 01/13/2012 Ordered tablet Spasm, Substitution Allowed [place] 5/325 oral 1 tab, PO, Q6H, PRN, 12 tab, for 01/03/2012 01/06/2012 Ordered tablet pain, Substitution Allowed, Maintenance, TAB Flexeril 10 mg, 1 tab, Route: PO, Drug form: 01/03/2012 01/03/2012 Completed TAB, ONCE, Priority: STAT, Start date: 01/03/12 10:53:00, Stop date: 01/03/12 10:53:00 acetaminophen-hydroc 1 tab, Route: PO, Drug Form: TAB, 01/03/2012 01/03/2012 Completed odone 325 mg-10 mg ONCE, STAT, Start date: 01/03/12 oral tablet 10:52:00, Stop date: 01/03/12 10:52:00 Vital Signs Most recent to oldest [Reference Range]: 1 Height 149.86 cm (01/03/2012 10:33:00) Weight 75.000 kg (01/03/2012 10:33:00)
--- OUTSIDE RECORDS SUMMARY | 2018-11-14 10:46 | XMS REPORT | CCD ---
Author Author Auto Generated Organization [facility] Address Unknown Phone Unavailable Care Team Providers Care Manager Packaging Name Role Phone Anuj Gibson CP Allergies, Adverse Reactions, Alerts Substance Reaction [...] Medication Instructions Start Date End Date Status Dilaudid 1 mg, Route: IV, ONCE, Priority: 12/06/2011 12/06/2011 Completed STAT, Start date: 12/06/11 9:56:00, Stop date: 12/06/11 9:56:00 acetaminophen-hydroc 2 tab, Route: PO, Drug Form: TAB, 12/06/2011 12/06/2011 Completed odone 325 mg-5 mg ONCE, Start date: 12/06/11 oral tablet 12:24:00, Stop date: 12/06/11 12:24:00 ondansetron 4 mg, Route: IVP, ONCE, Priority: 12/06/2011 12/06/2011 Completed STAT, Start date: 12/06/11 8:10:00, Stop date: 12/06/11 8:10:00 hydromorphone 0.5 mg, Route: IVP, ONCE, Priority: 12/06/2011 12/06/2011 Completed STAT, Start date: 12/06/11 8:10:00, Stop date: 12/06/11 8:10:00 Sodium Chloride 0.9% 500 mL, Rate: 1,000 ml/hr, Infuse 12/06/2011 12/06/2011 Completed (Bolus) IV 500 mL over: 0.5 hr, Route: IV, kg, Total Volume: 500, Bolus dose, Priority: STAT, Start date: 12/06/11 8:10:00, Duration: 1 doses or times, Stop date: 12/06/11 8:39:00 Saline Flush 0.9% 5 ml, Route: IVP, Drug Form: INJ, 12/06/2011 12/06/2011 Discontinued PRN, PRN Line Flush, Start date: 12/06/11 8:10:00, Duration: 24 hr, Stop date: 12/07/11 8:09:00 Zofran 4 mg, Route: IVP, Drug form: INJ, 12/06/2011 12/06/2011 Completed ONCE, Priority: STAT, Start date: 12/06/11 12:29:00, Stop date: 12/06/11 12:29:00 [place] 5/325 oral 1-2 tab, PO, Q4-6H, PRN, 30 tab, 12/06/2011 12/11/2011 Ordered tablet Pain, Substitution Allowed, Maintenance Phenergan 25 mg oral 25 mg, 1 tab, PO, Q4H, PRN, 15 tab, 12/06/2011 Ordered tablet Nausea, Substitution Allowed Vital Signs Most recent to oldest [Reference Range]: 1 Height 149.86 cm (12/06/2011 07:49:00) Weight 79.545 kg (12/06/2011 07:49:00) Results URINALYSIS Most recent to oldest [Reference Range]: 1 2 UA Turbidity [Clear] Clear (12/06/2011 10:15:00) UA Color [Yellow] Yellow *NA* (12/06/2011 10:15:00) UA pH [5.0-8.0] 6.0 (12/06/2011 10:15:00) UA Spec Grav [<=1.030] >=1.030 *ABN* (12/06/2011 10:15:00) UA Glucose [Negative] Negative (12/06/2011 10:15:00) UA Blood [Negative] Negative (12/06/2011 10:15:00) UA Ketones [Negative] Negative *NA* (12/06/2011 10:15:00) UA Protein [Negative] Negative (12/06/2011 10:15:00) UA Urobilinogen [0.1-1.0 EU/dL] 0.2 EU/dL (12/06/2011 10:15:00) UA Bili [Negative] Negative (12/06/2011 10:15:00) UA Leuk Est [Negative] Negative (12/06/2011 10:15:00) UA Nitrite [Negative] Negative (12/06/2011 10:15:00) UA WBC [None Seen] None Seen (12/06/2011 10:15:00) UA RBC [0-2] None Seen (12/06/2011 10:15:00) UA Bacteria [None Seen /HPF] Few /HPF (12/06/2011 10:15:00) UA Sq Epi [Few /LPF] Few /LPF (12/06/2011 10:15:00) UA Mucus [None Seen /LPF] Few /LPF (12/06/2011 10:15:00) STOOL TESTS Most recent to oldest [Reference Range]: 1 2 Occult Bld Stl [Negative] Negative (12/06/2011 12:01:00) Negative (12/06/2011 08:35:00) BLOOD BANK RESULTS Most recent to oldest [Reference Range]: 1 2 ABO/Rh B POS *Unknown* (12/06/2011 09:00:00) Antibody Scrn Negative (12/06/2011 09:00:00) CHEMISTRY Most recent to oldest [Reference Range]: 1 2 Sodium Lvl [135-145 mEq/L] 144 mEq/L (12/06/2011 08:30:00) Potassium Lvl [3.5-5.1 mEq/L] 3.8 mEq/L (12/06/2011 08:30:00) Chloride Lvl [95-109 mEq/L] 110 mEq/L *HI* (12/06/2011 08:30:00) CO2 [24-32 mEq/L] 23 mEq/L *LOW* (12/06/2011 08:30:00) AGAP [10.0-20.0 mEq/L] 14.8 mEq/L (12/06/2011 08:30:00) Creatinine Lvl [0.5-1.4 mg/dL] 0.6 mg/dL (12/06/2011 08:30:00) BUN [7-22 mg/dL] 14 mg/dL (12/06/2011 08:30:00) B/C Ratio [6-25] 23 (12/06/2011 08:30:00) Glucose Lvl [70-99 mg/dL] 82 mg/dL 1 (12/06/2011 08:30:00) Total Protein [6.4-8.4 g/dL] 7.0 g/dL (12/06/2011 08:30:00) Albumin Lvl [3.5-5.0 g/dL] 3.8 g/dL (12/06/2011 08:30:00) Globulin [2.0-4.0 g/dL] 3.2 g/dL (12/06/2011 08:30:00) A/G Ratio [0.7-1.6] 1.2 (12/06/2011 08:30:00) Calcium Lvl [8.5-10.5 mg/dL] 9.0 mg/dL (12/06/2011 08:30:00) ALT [0-65 U/L] 22 U/L (12/06/2011 08:30:00) AST [0-37 U/L] 12 U/L (12/06/2011 08:30:00) Alk Phos [39-136 U/L] 43 U/L (12/06/2011 08:30:00) Bili Total [0.2-1.3 mg/dL] 0.3 mg/dL (12/06/2011 08:30:00) Lipase Lvl [73-393 U/L] 213 U/L (12/06/2011 08:30:00) 1Interpretive Data: Adult reference range values reflect the clinical guidelinesof the [place] [employer]. HEMATOLOGY Most recent to oldest [Reference Range]: 1 2 WBC [3.7-10.4 K/CMM] 8.7 K/CMM (12/06/2011 08:30:00) RBC [4.20-5.40 M/CMM] 3.74 M/CMM *LOW* (12/06/2011 08:30:00) Hgb [12.0-16.0 g/dL] 12.4 g/dL (12/06/2011 08:30:00) Hct [36.0-48.0 %] 37.4 % (12/06/2011 08:30:00) MCV [81.0-99.0 fL] 100.1 fL *HI* (12/06/2011 08:30:00) MCH [27.0-31.0 pg] 33.2 pg *HI* (12/06/2011 08:30:00) MCHC [32.0-36.0 g/dL] 33.2 g/dL (12/06/2011 08:30:00) RDW [11.5-14.5 %] 15.6 % *HI* (12/06/2011 08:30:00) Platelet [133-450 K/CMM] 171 K/CMM (12/06/2011 08:30:00) MPV [7.4-10.4 fL] 9.2 fL (12/06/2011 08:30:00) Segs [45.0-75.0 %] 70.7 % (12/06/2011 08:30:00) Lymphocytes [20.0-40.0 %] 21.5 % (12/06/2011 08:30:00) Monocytes [2.0-12.0 %] 6.6 % (12/06/2011 08:30:00) Eosinophils [0.0-4.0 %] 0.9 % (12/06/2011 08:30:00) Basophils [0.0-1.0 %] 0.3 % (12/06/2011 08:30:00) Segs-Bands # [1.5-8.1 K/CMM] 6.2 K/CMM (12/06/2011 08:30:00) Lymphocytes # [1.0-5.5 K/CMM] 1.9 K/CMM (12/06/2011 08:30:00) Monocytes # [0.0-0.8 K/CMM] 0.6 K/CMM (12/06/2011 08:30:00) Eosinophils # [0.0-0.5 K/CMM] 0.1 K/CMM (12/06/2011 08:30:00) Basophils # [0.0-0.2 K/CMM] 0.0 K/CMM (12/06/2011 08:30:00)
--- OUTSIDE RECORDS SUMMARY | 2018-11-14 10:46 | XMS REPORT | CCD ---
Author Author Auto Generated Organization [facility] Address Unknown Phone Unavailable Care Team Providers Care Rolled Gold Plater Name Role Phone Nitin Bassett CP Allergies, [...] Dilaudid 1 mg, Route: IV, ONCE, Priority: 12/07/2011 12/07/2011 Completed STAT, Start date: 12/07/11 22:47:00, Stop date: 12/07/11 22:47:00 Sodium Chloride 0.9% 1,000 mL, Rate: 1,000 ml/hr, Infuse 12/07/2011 12/07/2011 Completed (Bolus) IV 1,000 mL over: 1 hr, Route: IV, Dosing Weight 53 kg, Total Volume: 1,000, Bolus Dose, Priority: STAT, Start date: 12/07/11 19:38:00, Duration: 1 doses or times, Stop date: 12/07/11 20:37:00 Zofran ODT 4 mg oral 4 mg, 1 tab, PO, BID, PRN, 10 tab, 12/08/2011 Ordered tablet, Nausea and Vomiting, Substitution disintegrating Allowed, Dissolve tab under tongue Dissolve tab under tongue [place] 7.5/325 oral 1 tab, PO, Q4H, PRN, 15 tab, for 12/08/2011 Ordered tablet pain, Substitution Allowed, Maintenance, TAB Dilaudid 1 mg, 1 mL, Route: IV, Drug form: 12/07/2011 12/07/2011 Completed SOLN, ONCE, Priority: STAT, Start date: 12/07/11 19:37:00, Stop date: 12/07/11 19:37:00 Zofran 4 mg, 2 mL, Route: IVP, Drug form: 12/07/2011 12/07/2011 Completed INJ, ONCE, Priority: STAT, Start date: 12/07/11 19:37:00, Stop date: 12/07/11 19:37:00 Vital Signs Most recent to oldest [Reference Range]: 1 Height 149.86 cm (12/07/2011 17:55:00) Weight 53.182 kg (12/07/2011 17:55:00) Results URINALYSIS Most recent to oldest [Reference Range]: 1 UA Turbidity [Clear] Clear (12/07/2011 19:38:00) UA Color [Yellow] Yellow *NA* (12/07/2011 19:38:00) UA pH [5.0-8.0] 6.5 (12/07/2011 19:38:00) UA Spec Grav [<=1.030] 1.020 (12/07/2011 19:38:00) UA Glucose [Negative mg/dL] Negative mg/dL (12/07/2011 19:38:00) UA Blood [Negative] Negative (12/07/2011 19:38:00) UA Ketones [Negative mg/dL] Negative mg/dL *NA* (12/07/2011 19:38:00) UA Protein [Negative mg/dL] Negative mg/dL (12/07/2011 19:38:00) UA Urobilinogen [0.1-1.0 EU/dL] 0.2 EU/dL (12/07/2011 19:38:00) UA Bili [Negative] Negative *NA* (12/07/2011 19:38:00) UA Leuk Est [Negative] Negative (12/07/2011 19:38:00) UA Nitrite [Negative] Negative (12/07/2011 19:38:00) UA WBC [None Seen] None Seen (12/07/2011 19:38:00) UA RBC [0-2 /HPF] 0-2 /HPF (12/07/2011 19:38:00) UA Bacteria [None Seen /HPF] Moderate /HPF (12/07/2011 19:38:00) UA Sq Epi [Few /LPF] Many /LPF *ABN* (12/07/2011 19:38:00) CHEMISTRY Most recent to oldest [Reference Range]: 1 Sodium Lvl [135-145 mEq/L] 138 mEq/L (12/07/2011 20:20:00) Potassium Lvl [3.5-5.1 mEq/L] 4.2 mEq/L (12/07/2011 20:20:00) Chloride Lvl [95-109 mEq/L] 105 mEq/L (12/07/2011 20:20:00) CO2 [24-32 mEq/L] 24 mEq/L (12/07/2011 20:20:00) AGAP [10.0-20.0 mEq/L] 13.2 mEq/L (12/07/2011 20:20:00) Creatinine Lvl [0.5-1.4 mg/dL] 0.5 mg/dL (12/07/2011 20:20:00) BUN [7-22 mg/dL] 10 mg/dL (12/07/2011 20:20:00) B/C Ratio [6-25] 20 (12/07/2011 20:20:00) Glucose Lvl [70-99 mg/dL] 78 mg/dL 1 (12/07/2011 20:20:00) Total Protein [6.4-8.4 g/dL] 7.0 g/dL (12/07/2011 20:20:00) Albumin Lvl [3.5-5.0 g/dL] 3.9 g/dL (12/07/2011 20:20:00) Globulin [2.0-4.0 g/dL] 3.1 g/dL (12/07/2011 20:20:00) A/G Ratio [0.7-1.6] 1.3 (12/07/2011 20:20:00) Calcium Lvl [8.5-10.5 mg/dL] 8.9 mg/dL (12/07/2011 20:20:00) ALT [0-65 U/L] 24 U/L (12/07/2011 20:20:00) AST [0-37 U/L] 16 U/L (12/07/2011 20:20:00) Alk Phos [39-136 U/L] 45 U/L (12/07/2011 20:20:00) Bili Total [0.2-1.3 mg/dL] 0.3 mg/dL (12/07/2011 20:20:00) Amylase Lvl [25-115 U/L] 23 U/L *LOW* (12/07/2011 20:20:00) Lipase Lvl [73-393 U/L] 223 U/L (12/07/2011 20:20:00) S Preg [Negative] Negative *NA* (12/07/2011 20:20:00) 1Interpretive Data: Adult reference range values reflect the clinical guidelinesof the [place] [employer]. HEMATOLOGY Most recent to oldest [Reference Range]: 1 WBC [3.7-10.4 K/CMM] 8.0 K/CMM (12/07/2011 20:20:00) RBC [4.20-5.40 M/CMM] 3.58 M/CMM *LOW* (12/07/2011 20:20:00) Hgb [12.0-16.0 g/dL] 11.8 g/dL *LOW* (12/07/2011 20:20:00) Hct [36.0-48.0 %] 35.6 % *LOW* (12/07/2011 20:20:00) MCV [81.0-99.0 fL] 99.4 fL *HI* (12/07/2011 20:20:00) MCH [27.0-31.0 pg] 32.8 pg *HI* (12/07/2011 20:20:00) MCHC [32.0-36.0 g/dL] 33.0 g/dL (12/07/2011 20:20:00) RDW [11.5-14.5 %] 15.3 % *HI* (12/07/2011 20:20:00) Platelet [133-450 K/CMM] 44 K/CMM *LOW* (12/07/2011 20:20:00) MPV [7.4-10.4 fL] 9.8 fL (12/07/2011 20:20:00) Segs [45.0-75.0 %] 57.7 % (12/07/2011 20:20:00) Lymphocytes [20.0-40.0 %] 35.2 % (12/07/2011 20:20:00) Monocytes [2.0-12.0 %] 5.4 % (12/07/2011 20:20:00) Eosinophils [0.0-4.0 %] 1.6 % (12/07/2011 20:20:00) Basophils [0.0-1.0 %] 0.1 % (12/07/2011 20:20:00) Segs-Bands # [1.5-8.1 K/CMM] 4.6 K/CMM (12/07/2011 20:20:00) Lymphocytes # [1.0-5.5 K/CMM] 2.8 K/CMM (12/07/2011 20:20:00) Monocytes # [0.0-0.8 K/CMM] 0.4 K/CMM (12/07/2011 20:20:00) Eosinophils # [0.0-0.5 K/CMM] 0.1 K/CMM (12/07/2011 20:20:00) Basophils # [0.0-0.2 K/CMM] 0.0 K/CMM (12/07/2011 20:20:00) RBC Morph Normal (12/07/2011 20:20:00) Plt Morph Normal (12/07/2011 20:20:00)
--- OUTSIDE RECORDS SUMMARY | 2018-11-14 10:46 | XMS REPORT | CCD ---
Author Author Auto Generated Organization [facility] Address Unknown Phone Unavailable Care Team Providers Care Shuttle Route Vehicle Operator Name Role Phone Simin Sandoval CP Lauren Castellon CP [phone] Rigoberto Serna CP Unavailable Arabella Leyva CP [phone] Lexii Burciaga CP [phone] Saundra Silverman CP Unavailable Ivanna Gimenez CP Luz Saez CP Unavailable Terrie Morrow CP Unavailable Gina Das CP Jas Restrepo CP Unavailable Kane Avalos CP [phone] Deana Cardoza CP Unavailable Pernell Durham I CP Deana Nelson CP Unavailable Janny Kee CP Unavailable Nathalie Dhillon CP [phone] Angelica Kasper CP Unavailable Scotty Valente CP [phone] Nilda Rodgers CP Unavailable Zuleyka Hilton CP Unavailable Christina Arriaza CP Bakari Sr CP [phone] Emerald Tinoco CP Unavailable SYSTEM, SYSTEM CP Unavailable Mary Ramon CP Unavailable Milton Chambers CP Unavailable Saundra Bauer CP Susan Dickinson CP Unavailable Evangelista Conner CP [phone] Guera Avalos CP Unavailable Kala Berman CP Elyse Correa CP [phone] Jan Kumar CP Unavailable Dorie Tom CP Unavailable Harjeet Sue CP Unavailable Rayne Zimmerman CP Unavailable Kelsi Serra CP [phone] Amie Goncalves CP Unavailable Britney Blevins CP Unavailable Steph Bustamante CP [phone] Sheridan Gaspar CP Billie Nicole CP Unavailable Allergies, Adverse Reactions, Alerts Substance Reaction Status Darvocet-N 100 ?? Active fentanyl ?? Active NKFA ?? Active NSAIDs ?? Active Stadol ?? Active Toradol ?? Active traMADOL ?? Active Problem List Condition Effective Dates Status Anxiety hyperventilation ?? Active Asthma < 02/26/2011 Inactive Childhood asthma ?? Active Chronic cluster headache ?? Active Cough ?? Active Depression ?? Active H/O: vertigo ?? Active HVS - Hyperventilation syndrome ?? Active Hypoglycemia ?? Active Migraine ?? Active Pneumonia ?? Active Shortness of breath ?? Active Sore throat ?? Active Medications Medication Instructions Start Date End Date Status Zofran 8 mg, 4 mL, Route: IVP, Drug form: 06/26/2011 06/28/2011 Discontinued INJ, Q8H, PRN Nausea, Start date: 06/26/11 10:22:00, Duration: 30 day, Stop date: 07/26/11 10:21:00 albuterol 90 mcg/inh 1 inhalation, Route: INHALATION, 06/26/2011 06/28/2011 Discontinued inhalation aerosol Drug Form: AERO/A, Q4H, PRN Wheezing, Start date: 06/26/11 11:36:00, Duration: 30 day, Stop date: 07/26/11 11:35:00 hydromorphone 4 mg, 2 mL, Route: IV, Drug form: 06/26/2011 06/28/2011 Discontinued INJ, Q3H, PRN Pain, Start date: 06/26/11 10:22:00, Stop date: 07/26/11 10:21:00 Julian 10/325 oral 1 tab, Route: PO, Drug Form: TAB, 06/26/2011 06/28/2011 Discontinued tablet Q6H, PRN For Pain, Start date: 06/26/11 11:36:00, Duration: 30 day, Stop date: 07/26/11 11:35:00 Bentyl 20 mg, 2 mL, Route: IM, Drug form: 06/26/2011 06/28/2011 Discontinued INJ, Q6H, PRN Cramps, Start date: 06/26/11 10:21:00, Duration: 30 day, Stop date: 07/26/11 10:20:00 Prozac 60 mg, 3 cap, Route: PO, Drug form: 06/26/2011 06/28/2011 Discontinued CAP, Daily, Start date: 06/26/11 22:42:00, Duration: 30 day, Stop date: 07/26/11 21:00:00 amitriptyline 100 mg, 2 tab, Route: PO, Drug 06/26/2011 06/28/2011 Discontinued form: TAB, Bedtime, Start date: 06/26/11 21:00:00, Duration: 30 day, Stop date: 07/25/11 21:00:00 Dextrose 5% with 1,000 mL, Rate: 150 ml/hr, Infuse 06/26/2011 06/28/2011 Discontinued 0.45% NaCl IV 1,000 over: 6.7 hr, Route: IV, Total mL Volume: 1,000, Start date: 06/26/11 10:20:00, Duration: 30 day, Stop date: 07/26/11 10:19:00 Dilaudid 2 mg, 1 mL, Route: IV, Drug form: 06/27/2011 06/27/2011 Completed INJ, ONCE, Start date: 06/27/11 14:49:00, Stop date: 06/27/11 14:49:00 Prozac 20 mg oral 60 mg, 3 cap, PO, Daily, 30 cap, 06/28/2011 ?? Ordered capsule Substitution Allowed, CAP chlordiazepoxide-cli 2 cap, Route: PO, Drug Form: CAP, 06/26/2011 06/28/2011 Discontinued dinium 5 mg-2.5 mg QID, PRN GI Upset, Start date: oral capsule 06/26/11 18:18:00, Stop date: 07/26/11 18:17:00, abdominal cramp Symbicort 160/4.5 2 inhalation, Route: INHALATION, 06/26/2011 06/28/2011 Discontinued inhalation aerosol Drug Form: AERO/A, BID, Start date: with adapter 06/26/11 17:00:00, Duration: 30 day, Stop date: 07/26/11 9:00:00 Vital Signs Most recent to oldest [Reference Range]: 1 2 3 Height 149.86 cm (06/26/2011 10:12:00) ?? 149.86 cm (06/26/2011 10:07:00) ? Temperature Oral [96.4-99.1 DegF] 98.6 DegF (06/28/2011 12:00:00) ?? 98.2 DegF (06/28/2011 08:00:00) ?? 98.3 DegF (06/28/2011 04:00:00) ?? Systolic Blood Pressure [90-140 mmHg] 116 mmHg (06/28/2011 12:00:00) ?? 95 mmHg (06/28/2011 08:00:00) ?? 101 mmHg (06/28/2011 04:00:00) ?? Diastolic Blood Pressure [60-90 mmHg] 75 mmHg (06/28/2011 12:00:00) ?? 59 mmHg *LOW* (06/28/2011 08:00:00) ?? 56 mmHg *LOW* (06/28/2011 04:00:00) ?? Respiratory Rate [14-20 BRMIN] 18 BRMIN (06/28/2011 12:00:00) ?? 18 BRMIN (06/28/2011 08:00:00) ?? 18 BRMIN (06/28/2011 04:00:00) ?? Peripheral Pulse Rate [60-100 bpm] 89 bpm (06/28/2011 12:00:00) ?? 80 bpm (06/28/2011 08:00:00) ?? 69 bpm (06/28/2011 04:00:00) ?? Weight 80.455 kg (06/26/2011 10:12:00) ?? 80.455 kg (06/26/2011 10:07:00) ? Results URINALYSIS Most recent to oldest [Reference Range]: 1 2 3 UA Turbidity [>Clear] Slight Cloudy (06/26/2011 14:00:00) ? UA Color [>Yellow] Yellow *NA* (06/26/2011 14:00:00) ? UA pH [5.0-8.0] 6.5 (06/26/2011 14:00:00) ? UA Spec Grav [<<=1.030] 1.010 (06/26/2011 14:00:00) ? UA Glucose [>Negative] Negative (06/26/2011 14:00:00) ? UA Blood [>Negative] Negative (06/26/2011 14:00:00) ? UA Ketones [>Negative mg/dL] 15 mg/dL *ABN* (06/26/2011 14:00:00) ? UA Protein [>Negative] Negative (06/26/2011 14:00:00) ? UA Urobilinogen [0.1-1.0 EU/dL] 0.2 EU/dL (06/26/2011 14:00:00) ? UA Bili [>Negative] Negative 1 (06/26/2011 14:00:00) ? UA Leuk Est [>Negative] Negative (06/26/2011 14:00:00) ? UA Nitrite [>Negative] Negative (06/26/2011 14:00:00) ? UA WBC [>None Seen /HPF] 0-2 /HPF (06/26/2011 14:00:00) ? UA RBC [>0-2] None Seen (06/26/2011 14:00:00) ? UA Bacteria [>None Seen /HPF] Few /HPF (06/26/2011 14:00:00) ? UA Sq Epi [>Few /LPF] Few /LPF (06/26/2011 14:00:00) ? Micro? Performed (06/26/2011 14:00:00) ? 1Result Comment: confirmed by ictotest CHEMISTRY Most recent to oldest [Reference Range]: 1 2 3 Sodium Lvl [135-145 mEq/L] 142 mEq/L (06/28/2011 05:29:00) ?? 140 mEq/L (06/27/2011 04:01:00) ?? 135 mEq/L (06/26/2011 10:15:00) ?? Potassium Lvl [3.5-5.1 mEq/L] 4.0 mEq/L (06/28/2011 05:29:00) ?? 4.1 mEq/L (06/27/2011 04:01:00) ?? 3.6 mEq/L (06/26/2011 10:15:00) ?? Chloride Lvl [95-109 mEq/L] 111 mEq/L *HI* (06/28/2011 05:29:00) ?? 109 mEq/L (06/27/2011 04:01:00) ?? 102 mEq/L (06/26/2011 10:15:00) ?? CO2 [24-32 mEq/L] 23 mEq/L *LOW* (06/28/2011 05:29:00) ?? 23 mEq/L *LOW* (06/27/2011 04:01:00) ?? 23 mEq/L *LOW* (06/26/2011 10:15:00) ?? AGAP [10.0-20.0 mEq/L] 12.0 mEq/L (06/28/2011 05:29:00) ?? 12.1 mEq/L (06/27/2011 04:01:00) ?? 13.6 mEq/L (06/26/2011 10:15:00) ?? Creatinine Lvl [0.5-1.4 mg/dL] 0.6 mg/dL (06/28/2011 05:29:00) ?? 0.6 mg/dL (06/27/2011 04:01:00) ?? 0.8 mg/dL (06/26/2011 10:15:00) ?? BUN [7-22 mg/dL] 2 mg/dL *LOW* (06/28/2011 05:29:00) ?? 6 mg/dL *LOW* (06/27/2011 04:01:00) ?? 18 mg/dL (06/26/2011 10:15:00) ?? B/C Ratio [6-25] 3 *LOW* (06/28/2011 05:29:00) ?? 10 (06/27/2011 04:01:00) ?? 23 (06/26/2011 10:15:00) ?? Glucose Lvl 84 mg/dL 2 *NA* (06/28/2011 05:29:00) ?? 146 mg/dL 3 *NA* (06/27/2011 04:01:00) ?? 88 mg/dL 4 *NA* (06/26/2011 10:15:00) ?? Total Protein [6.4-8.4 g/dL] 6.6 g/dL (06/28/2011 05:29:00) ?? 6.3 g/dL *LOW* (06/27/2011 04:01:00) ?? 8.9 g/dL *HI* (06/26/2011 10:15:00) ?? Albumin Lvl [3.5-5.0 g/dL] 3.4 g/dL *LOW* (06/28/2011 05:29:00) ?? 3.5 g/dL (06/27/2011 04:01:00) ?? 4.7 g/dL (06/26/2011 10:15:00) ?? Globulin [2.0-4.0 g/dL] 3.2 g/dL (06/28/2011 05:29:00) ?? 2.8 g/dL (06/27/2011 04:01:00) ?? 4.2 g/dL *HI* (06/26/2011 10:15:00) ?? A/G Ratio [0.7-1.6] 1.1 (06/28/2011 05:29:00) ?? 1.3 (06/27/2011 04:01:00) ?? 1.1 (06/26/2011 10:15:00) ?? Calcium Lvl [8.5-10.5 mg/dL] 8.6 mg/dL (06/28/2011 05:29:00) ?? 8.5 mg/dL (06/27/2011 04:01:00) ?? 9.7 mg/dL (06/26/2011 10:15:00) ?? ALT [0-65 U/L] 438 U/L *HI* (06/28/2011 05:29:00) ?? 672 U/L *HI* (06/27/2011 04:01:00) ?? 1225 U/L *HI* (06/26/2011 10:15:00) ?? AST [0-37 U/L] 67 U/L *HI* (06/28/2011 05:29:00) ?? 178 U/L *HI* (06/27/2011 04:01:00) ?? 653 U/L *HI* (06/26/2011 10:15:00) ?? Alk Phos [39-136 U/L] 37 U/L *LOW* (06/28/2011 05:29:00) ?? 39 U/L (06/27/2011 04:01:00) ?? 48 U/L (06/26/2011 10:15:00) ?? Bili Total [0.2-1.3 mg/dL] 0.3 mg/dL (06/28/2011 05:29:00) ?? 0.3 mg/dL (06/27/2011 04:01:00) ?? 0.7 mg/dL (06/26/2011 10:15:00) ?? Amylase Lvl [25-115 U/L] 17 U/L *LOW* (06/26/2011 10:15:00) ? Lipase Lvl [73-393 U/L] 91 U/L (06/26/2011 10:15:00) ? 2Interpretive Data: Reference Ranges : 0 - 7 days : 41 - 90 mg/dL7 days - 150 yrs : 70 - 99 mg/dL (fasting), based on the clinical recommendations of the [place] [employer]. 3Interpretive Data: Reference Ranges : 0 - 7 days : 41 - 90 mg/dL7 days - 150 yrs : 70 - 99 mg/dL (fasting), based on the clinical recommendations of the [place] [employer]. 4Interpretive Data: Reference Ranges : 0 - 7 days : 41 - 90 mg/dL7 days - 150 yrs : 70 - 99 mg/dL (fasting), based on the clinical recommendations of the [place] [employer]. HEMATOLOGY Most recent to oldest [Reference Range]: 1 2 3 WBC [3.7-10.4 K/CMM] 7.3 K/CMM (06/27/2011 04:01:00) ?? 10.8 K/CMM *HI* (06/26/2011 10:15:00) ? RBC [4.20-5.40 M/CMM] 3.37 M/CMM *LOW* (06/27/2011 04:01:00) ?? 4.28 M/CMM (06/26/2011 10:15:00) ? Hgb [12.0-16.0 g/dL] 11.5 g/dL *LOW* (06/27/2011 04:01:00) ?? 14.6 g/dL (06/26/2011 10:15:00) ? Hct [36.0-48.0 %] 33.6 % *LOW* (06/27/2011 04:01:00) ?? 42.2 % (06/26/2011 10:15:00) ? MCV [81.0-99.0 fL] 99.5 fL *HI* (06/27/2011 04:01:00) ?? 98.6 fL (06/26/2011 10:15:00) ? MCH [27.0-31.0 pg] 34.2 pg *HI* (06/27/2011 04:01:00) ?? 34.0 pg *HI* (06/26/2011 10:15:00) ? MCHC [32.0-36.0 g/dL] 34.4 g/dL (06/27/2011 04:01:00) ?? 34.5 g/dL (06/26/2011 10:15:00) ? RDW [11.5-14.5 %] 16.4 % *HI* (06/27/2011 04:01:00) ?? 16.1 % *HI* (06/26/2011 10:15:00) ? Platelet [133-450 K/CMM] 169 K/CMM (06/27/2011 04:01:00) ?? 218 K/CMM (06/26/2011 10:15:00) ? MPV [7.4-10.4 fL] 9.1 fL (06/27/2011 04:01:00) ?? 8.9 fL (06/26/2011 10:15:00) ? Segs [45.0-75.0 %] 60.5 % (06/27/2011 04:01:00) ?? 77.0 % *HI* (06/26/2011 10:15:00) ? Lymphocytes [20.0-40.0 %] 24.8 % (06/27/2011 04:01:00) ?? 13.6 % *LOW* (06/26/2011 10:15:00) ? Monocytes [2.0-12.0 %] 10.3 % (06/27/2011 04:01:00) ?? 6.9 % (06/26/2011 10:15:00) ? Eosinophils [0.0-4.0 %] 4.1 % *HI* (06/27/2011 04:01:00) ?? 2.0 % (06/26/2011 10:15:00) ? Basophils [0.0-1.0 %] 0.3 % (06/27/2011 04:01:00) ?? 0.5 % (06/26/2011 10:15:00) ? Segs-Bands # [1.5-8.1 K/CMM] 4.4 K/CMM (06/27/2011 04:01:00) ?? 8.3 K/CMM *HI* (06/26/2011 10:15:00) ? Lymphocytes # [1.0-5.5 K/CMM] 1.8 K/CMM (06/27/2011 04:01:00) ?? 1.5 K/CMM (06/26/2011 10:15:00) ? Monocytes # [0.0-0.8 K/CMM] 0.8 K/CMM (06/27/2011 04:01:00) ?? 0.7 K/CMM (06/26/2011 10:15:00) ? Eosinophils # [0.0-0.5 K/CMM] 0.3 K/CMM (06/27/2011 04:01:00) ?? 0.2 K/CMM (06/26/2011 10:15:00) ? Basophils # [0.0-0.2 K/CMM] 0.0 K/CMM (06/27/2011 04:01:00) ?? 0.1 K/CMM (06/26/2011 10:15:00) ? RBC Morph Normal (06/26/2011 10:15:00) ? Macrocyte [>None Seen] 1+ *ABN* (06/27/2011 04:01:00) ? Plt Morph Normal (06/26/2011 10:15:00) ? Sed Rate [0-20 mm/hr] 12 mm/hr (06/26/2011 10:15:00) ? IMMUNOLOGY Most recent to oldest [Reference Range]: 1 2 3 CMV IgM 1.070 5 *NA* (06/28/2011 05:29:00) ? EBV VCA IgM [<<=0.89 IV] 0.18 IV 6 (06/28/2011 05:29:00) ? Hep Bs Ag [>Negative] Negative *NA* (06/26/2011 10:15:00) ? Hep B Core IgM [>Negative] Negative *NA* (06/26/2011 10:15:00) ? Hep A IgM [>Negative] Negative *NA* (06/26/2011 10:15:00) ? Hep C Ab [>Negative] Negative *NA* (06/26/2011 10:15:00) ? 5Interpretive Data: Reference Range: Negative : <=0.90 Index Value Equivocal: 0.91 - 1.09 Index Value Positive : >=1.10 Index Value 6Interpretive Data: Index Value Results Interpretation --------- <=0.90 Negative No detectable IgM Antibody.0.90 - 1.09 Equivocal Repeat testing suggested in 10-14 days.>=1.10 Positive Significant level of detectable VCA IgM Antibody, indicative of current or recent infection. Microbiology Reports PROCEDURE:Culture: Urine STATUS: Auth (Verified) BODY SITE: ?? COLLECTED DATE/TIME: 06/26/2011 14:00:00 SOURCE: Urine, Clean Catch FREE TEXT SOURCE: ?? FINAL REPORTS Final Report 3 Or More Organisms Present. Gram Positive Organisms Only. [place] Count Not Sign ificant PRELIMINARY REPORTS Preliminary Report No Growth; Holding
--- OUTSIDE RECORDS SUMMARY | 2018-11-14 10:46 | XMS REPORT | CCD ---
Author Author Auto Generated Organization [facility] Address Unknown Phone Unavailable Care Team Providers Care Director Radio News Name Role Phone Juarez Dickerson CP Allergies, Adverse Reactions, Alerts Substance Reaction [...] Medication Instructions Start Date End Date Status Bentyl 10 mg oral 10 mg, 1 cap, PO, QID, 28 cap, 11/10/2011 11/17/2011 Ordered capsule Substitution Allowed, CAP Zofran ODT 4 mg oral 4 mg, 1 tab, PO, ONCE, 20 tab, 11/10/2011 11/10/2011 Ordered tablet, Substitution Allowed, Dissolve tab disintegrating under tongue Dissolve tab under tongue Lipitor 20 mg oral 20 mg, 1 tab, PO, Daily, 30 tab, 11/10/2011 Ordered tablet Substitution Allowed, TAB Vital Signs Most recent to oldest [Reference Range]: 1 Height 149.86 cm (11/10/2011 00:11:00) Weight 77.273 kg (11/10/2011 00:11:00)
--- OUTSIDE RECORDS SUMMARY | 2018-11-14 10:46 | XMS REPORT | CCD ---
Author Author Auto Generated Organization [facility] Address Unknown Phone Unavailable Care Team Providers Care Bin Worker Name Role Phone STEPH[facility] CP Unavailable Yanique De Oliveira CP Unavailable Mary Pierre CP Arabella Castillo CP [phone] Lauren Castellon CP [phone] Yael Guerra CP Unavailable Marcel Aazr CP Raymond Poe CP Unavailable Klarissa Cruz CP [id number] Mae Solis CP Katie Torres CP Darwin Topete CP Ariel Velez CP Amelia Juarez CP Unavailable Yandel vAalos CP Unavailable Jacqueline Burks CP Unavailable Torrey Calderon CP [phone] Arabella Leyva CP [phone] Meghan Jane CP Rob Hardin CP [phone] Halley Webster CP Unavailable Shane Contreras CP Unavailable Ivanna Gimenez CP Wilner Felton CP Alex Lopez CP Unavailable Sendy Owens CP Unavailable Hemanth Olsen CP Unavailable Terrie Morrow CP Unavailable Pernell Durham I CP Lakeshia Burnett CP [phone] Shayy Vick CP [phone] Miguel Montoya CP Unavailable Miroslava Do CP [phone] Leyla Wong CP Unavailable ChilangoJanny CP Unavailable Marissa Black CP [phone] ChristineadelisaSindy N CP Unavailable Vaughn Garcesis L CP Kevan Gonzalez CP Unavailable Doyle, Antoinette CP Unavailable Yobani, Zuleyka CP Unavailable Sherrie, Kathy CP Unavailable Lugo, Veronica CP Unavailable Arin, Jenny A CP Unavailable Willyamile, Juliana CP Unavailable Miguel Angel, Chrissy M CP [phone] Kenzie Ozuna CP Unavailable Morenita Miller CP Unavailable Jasmin, Chelsie Singh CP Unavailable Elmer Serrato CP Macy Payne CP [phone] Kady Lacy CP [phone] Salvador Ambrosio CP Unavailable Hamid, Basem CP SYSTEM, SYSTEM CP Unavailable Rizwana Bishop CP Unavailable Christy Todd CP Unavailable Findsheldon, Sidoni CP Unavailable Saundra Bauer CP Repp, Ida L CP Unavailable June, Altagracia CP Unavailable Kira Gallegos CP Unavailable Mae Tomas CP Unavailable Edilson Dietrich CP [phone] April Oro CP Unavailable Diana Tarango CP Unavailable [employer] CP RamJade croft CP [phone] Jasmyne Felton CP [phone] Evangelista Conner CP [phone] Bucky Frias CP Vikram Amaral CP [phone] Sheree Escalante CP Unavailable Elliot Stallings CP MargaritoamyAnnamaria carreno CP MaxiNidia Isael CP Unavailable Terell Pepper CP Kala Berman CP Cisco Calixto CP Aleyda Calixto CP Unavailable Magdalena Mason CP Unavailable Dorie Tom CP Unavailable Carmen Simmons CP Claude Flaherty CP Kelsi Serra CP [phone] Tommy Brian Allan CP [phone] Gasper Martinez CP Yadira Fisher CP Unavailable GasparSavanna nogueraisha CP Lizeth Camacho CP [phone] Angella Araujo CP Unavailable Allergies, Adverse Reactions, Alerts Substance Reaction Status Darvocet-N 100 ?? Active fentanyl ?? Active NKFA ?? Active NSAIDs ?? Active Stadol ?? Active Toradol ?? Active traMADOL ?? Active Problem List Condition Effective Dates Status Acute pain ?? Active Anxiety hyperventilation ?? Active Asthma < 02/26/2011 Inactive Childhood asthma ?? Active Chronic cluster headache ?? Active Cough ?? Active Depression ?? Active H/O: vertigo ?? Active HVS - Hyperventilation syndrome ?? Active Hypoglycemia ?? Active Migraine ?? Active Pneumonia ?? Active Shortness of breath ?? Active Sore throat ?? Active Medications Medication Instructions Start Date End Date Status Dilaudid 0.5 mg, 0.5 mL, Route: IVP, Drug 07/06/2011 07/06/2011 Discontinued form: SOLN, Q3H, PRN as needed for pain, Priority: STAT, Start date: 07/06/11 6:05:00, Duration: 30 day, Stop date: 08/05/11 6:04:00 Prozac 60 mg, 3 cap, Route: PO, Drug form: 07/08/2011 07/11/2011 Discontinued CAP, Daily, Start date: 07/08/11 21:00:00, Duration: 30 day, Stop date: 08/06/11 21:00:00 scopolamine 1.5 mg 1.5 mg, 1 patch, TOP, Q72H, 3 07/11/2011 ?? Ordered transdermal film patch, Substitution Allowed, Maintenance, ERFILM MiraLax oral powder 17 gm, PO, Daily, 14 pkt, 07/11/2011 ?? Ordered for reconstitution Substitution Allowed morphine Sulfate 15 mg, 1 tab, Route: PO, Drug form: 07/07/2011 07/08/2011 Discontinued TAB, Q6H, Start date: 07/07/11 0:00:00, Duration: 30 day, Stop date: 08/05/11 18:00:00 Saline Flush 0.9% 5 ml, Route: IVP, Drug Form: INJ, 07/06/2011 07/11/2011 Discontinued PRN, PRN Line Flush, Start date: 07/06/11 6:05:00, Duration: 30 day, Stop date: 08/05/11 5:04:00 Sodium Chloride 0.9% 1,000 mL, Rate: 125 ml/hr, Infuse 07/06/2011 07/06/2011 Discontinued IV 1,000 mL over: 8 hr, Route: IV, Total Volume: 1,000, Start date: 07/06/11 6:05:00, Duration: 30 day, Stop date: 08/05/11 6:04:00 ondansetron 4 mg, 2 mL, Route: IVP, Drug form: 07/06/2011 07/11/2011 Discontinued INJ, Q6H, PRN Nausea & Vomiting, Start date: 07/06/11 6:05:00, Duration: 30 day, Stop date: 08/05/11 6:04:00 ondansetron 4 mg, 2 mL, Route: IVP, Drug form: 07/09/2011 07/09/2011 Completed INJ, ONCE, PRN Nausea & Vomiting, Start date: 07/09/11 14:43:00 acetaminophen-hydroc 1 tab, Route: PO, Drug Form: TAB, 07/09/2011 07/09/2011 Discontinued odone 325 mg-5 mg Q4H, PRN Pain Score 1-3, Start oral tablet date: 07/09/11 14:43:00, Duration: 30 day, Stop date: 08/08/11 14:42:00 acetaminophen-hydroc 2 tab, Route: PO, Drug Form: TAB, 07/09/2011 07/09/2011 Discontinued odone 325 mg-5 mg Q4H, PRN Pain Score 4-6, Start oral tablet date: 07/09/11 14:43:00, Duration: 30 day, Stop date: 08/08/11 14:42:00 naloxone 0.04 mg, 0.1 mL, Route: IVP, Drug 07/09/2011 07/09/2011 Discontinued form: INJ, Q2MIN, PRN Narcotic Reversal, Start date: 07/09/11 14:43:00, Duration: 8 doses or times, Stop date: Limited # of times flumazenil 0.2 mg, 2 mL, Route: IVP, Drug 07/09/2011 07/09/2011 Discontinued form: INJ, PRN, PRN Other -See Comment, Initial dose, Start date: 07/09/11 14:43:00, Duration: 5 doses or times, Stop date: Limited # of times hydromorphone 0.5 mg, 0.5 mL, Route: IVP, Drug 07/09/2011 07/09/2011 Discontinued form: SOLN, Q5Min, PRN Pain Score 4-6, Start date: 07/09/11 14:43:00, Duration: 5 doses or times, Stop date: Limited # of times morphine Sulfate 2 mg, 1 mL, Route: IVP, Drug form: 07/09/2011 07/09/2011 Discontinued INJ, Q5Min, PRN Pain Score 4-6, Start date: 07/09/11 14:43:00, Duration: 8 doses or times, Stop date: Limited # of times Protonix 40 mg oral 40 mg, 1 tab, PO, Before Dinner, 30 07/11/2011 ?? Ordered enteric coated tab, Substitution Allowed, ECTAB tablet amitriptyline 50 mg 100 mg, 2 tab, PO, Bedtime, 60 tab, 07/11/2011 ?? Ordered oral tablet Substitution Allowed, TAB MiraLax 17 gm, 1 pkt, Route: PO, Drug form: 07/06/2011 07/11/2011 Discontinued PWDR, BID, Start date: 07/06/11 9:00:00, Duration: 30 day, Stop date: 08/04/11 17:00:00 Cipro I.V. 400 400 mg, 200 mL, Route: IVPB, Drug 07/06/2011 07/11/2011 Discontinued mg/200 mL form: INJ, [id number], Start date: intravenous solution 07/06/11 14:00:00, Duration: 30 day, Stop date: 08/05/11 2:00:00 Dilaudid 1 mg, Route: IV, ONCE, Priority: 07/05/2011 07/06/2011 Completed STAT, Start date: 07/05/11 23:53:00, Stop date: 07/05/11 23:53:00 Zofran 4 mg, Route: IVP, ONCE, Start date: 07/05/2011 07/06/2011 Completed 07/05/11 23:53:00, Stop date: 07/05/11 23:53:00 Saline Flush 0.9% 5 ml, Route: IVP, Drug Form: INJ, 07/05/2011 07/06/2011 Discontinued PRN, PRN Line Flush, Start date: 07/05/11 23:53:00, Duration: 24 hr, Stop date: 07/06/11 23:52:00 Sodium Chloride 0.9% 1,000 mL, Rate: 500 ml/hr, Infuse 07/05/2011 07/06/2011 Discontinued IV 1,000 mL over: 2 hr, Route: IV, Total Volume: 1,000, Start date: 07/05/11 23:53:00, Duration: 30 day, Stop date: 08/04/11 23:52:00 Protonix 40 mg, 1 tab, Route: PO, Drug form: 07/11/2011 07/11/2011 Canceled ECTAB, Before Dinner, Start date: 07/11/11 16:30:00, Duration: 30 day, Stop date: 08/09/11 16:30:00 Levsin SL 0.125 mg, 1 tab, Route: SL, Drug 07/06/2011 07/11/2011 Discontinued form: TAB, Q4H, Start date: 07/06/11 16:00:00, Duration: 30 day, Stop date: 08/05/11 12:00:00 Nexium I.V. 40 mg, Route: IVP, Q12H, Start 07/06/2011 07/06/2011 Deleted date: 07/06/11 9:00:00, Duration: 30 day, Stop date: 08/04/11 21:00:00, For IV push reconstitute with 10 ml 0.9% sodium chloride and push over at least 3 minutes. For IV push reconstitute with 10 ml 0.9% sodium chloride and push over at least 3 minutes. Metoprolol Succinate 25 mg, 1 tab, Route: PO, Drug form: 07/08/2011 07/11/2011 Discontinued ER 25 mg oral ERTAB, BID, Start date: 07/08/11 tablet, extended 17:00:00, Duration: 30 day, Stop release date: 08/07/11 9:00:00 Dilaudid 2 mg, 1 mL, Route: IVP, Drug form: 07/06/2011 07/11/2011 Discontinued INJ, Q3H, PRN Pain, Start date: 07/06/11 8:15:00, Duration: 30 day, Stop date: 08/05/11 8:14:00 Prozac 60 mg, 3 cap, Route: PO, Drug form: 07/09/2011 07/08/2011 Discontinued CAP, Daily, Start date: 07/09/11 9:00:00, Duration: 30 day, Stop date: 08/07/11 9:00:00 Dilaudid 1 mg, Route: IV, ONCE, Priority: 07/06/2011 07/06/2011 Completed STAT, Start date: 07/06/11 3:34:00, Stop date: 07/06/11 3:34:00 Librax oral capsule 1 cap, Route: PO, Drug Form: CAP, 07/08/2011 07/11/2011 Discontinued QID, PRN Cramps, Start date: 07/08/11 11:37:00, Duration: 30 day, Stop date: 08/07/11 11:36:00, abdominal cramps Protonix 40 mg, Route: IVP, Drug form: INJ, 07/06/2011 07/11/2011 Discontinued Q12H, Start date: 07/06/11 9:00:00, Duration: 30 day, Stop date: 08/04/11 21:00:00 Zofran 4 mg, Route: IVP, ONCE, Start date: 07/06/2011 07/06/2011 Completed 07/06/11 3:34:00, Stop date: 07/06/11 3:34:00 Sodium Chloride 0.9% 1,000 mL, Rate: 250 ml/hr, Infuse 07/06/2011 07/06/2011 Completed (Bolus) IV 1,000 mL over: 4 hr, Route: IV, Total Volume: 1,000, Priority: STAT, Start date: 07/06/11 3:33:00, Duration: 1 doses or times, Stop date: 07/06/11 7:32:00, Bolus Dose Bolus Dose Symbicort 160/4.5 2 puff, Route: INHALATION, Drug 07/08/2011 07/11/2011 Discontinued inhalation aerosol Form: AERO/A, BID, PRN Shortness of with adapter breath, Start date: 07/08/11 16:25:00, Stop date: 08/07/11 16:24:00, sob amitriptyline 100 mg, 2 tab, Route: PO, Drug 07/08/2011 07/11/2011 Discontinued form: TAB, Bedtime, Start date: 07/08/11 21:00:00, Duration: 30 day, Stop date: 08/06/11 21:00:00 albuterol 90 mcg/inh 2 inhalation, Route: INHALATION, 07/08/2011 07/11/2011 Discontinued inhalation aerosol Drug Form: AERO/A, Q4H, PRN Wheezing, Start date: 07/08/11 11:37:00, Duration: 30 day, Stop date: 08/07/11 11:36:00, wheezes Cascade 5/325 oral 1 tab, Route: PO, Drug Form: TAB, 07/08/2011 07/11/2011 Discontinued tablet Q6H, PRN Pain, Start date: 07/08/11 11:37:00, Duration: 30 day, Stop date: 08/07/11 11:36:00 Lactated Ringers 1,000 mL, Rate: 25 ml/hr, Infuse 07/09/2011 07/09/2011 Discontinued Injection IV 1000 mL over: 40 hr, Route: IV, Total Volume: 1,000, Start date: 07/09/11 14:06:00, Duration: 30 day, Stop date: 08/08/11 14:05:00 lidocaine 1% 0.5 mL, Route: SUB-Q, ONCALL, Start 07/09/2011 07/09/2011 Canceled date: 07/09/11 15:00:00, Duration: 1 doses or times Dilaudid 1 mg, Route: IV, ONCE, Priority: 07/06/2011 07/06/2011 Completed STAT, Start date: 07/06/11 0:36:00, Stop date: 07/06/11 0:36:00 Lactated Ringers IV 1,000 mL, Rate: 75 ml/hr, Infuse 07/09/2011 07/10/2011 Discontinued 1,000 mL over: 13.3 hr, Route: IV, Total Volume: 1,000, Start date: 07/09/11 13:26:00, Stop date: 08/08/11 13:25:00 Librax oral capsule 1 cap, PO, TID-Before Meals, 60 07/11/2011 ?? Ordered cap, Substitution Allowed, Maintenance, CAP Dextrose 50% in 50 mL, Route: IVP, Start date: 07/06/2011 07/07/2011 Completed Water IV 07/06/11 19:00:00, Stop date: 07/06/11 19:00:00 scopolamine 1.5 mg 1 patch, Route: TOP, Drug Form: 07/09/2011 07/11/2011 Discontinued transdermal film ERFILM, Q72H, Start date: 07/09/11 14:00:00, Duration: 30 day, Stop date: 08/05/11 14:00:00 Librax oral capsule 1 cap, Route: PO, Drug Form: CAP, 07/11/2011 07/11/2011 Discontinued TID-Before Meals, Start date: 07/11/11 11:30:00, Duration: 30 day, Stop date: 08/10/11 7:30:00 acetaminophen-hydroc 2 tab, Route: PO, Drug Form: TAB, 07/10/2011 07/11/2011 Discontinued odone 325 mg-7.5 mg Q4H, PRN Pain, Start date: 07/10/11 oral tablet 11:05:00, Duration: 30 day, Stop date: 08/09/11 11:04:00 acetaminophen-hydroc 1 tab, Route: PO, Drug Form: TAB, 07/10/2011 07/11/2011 Discontinued odone 325 mg-7.5 mg Q4H, PRN Pain, Start date: 07/10/11 oral tablet 11:05:00, Duration: 30 day, Stop date: 08/09/11 11:04:00 acetaminophen-hydroc 1 tab, PO, Q6H, PRN, 56 tab, Pain, 07/11/2011 07/25/2011 Ordered odone 500 mg-10 mg Substitution Allowed, Maintenance oral tablet D5NS 1,000 mL 1,000 mL, Rate: 125 ml/hr, Infuse 07/06/2011 07/09/2011 Discontinued over: 8 hr, Route: IV, Total Volume: 1,000, Start date: 07/06/11 19:07:00, Duration: 30 day, Stop date: 08/05/11 19:06:00 Lactated Ringers 1,000 mL, Rate: 40 ml/hr, Infuse 07/10/2011 07/11/2011 Discontinued Injection IV 1,000 over: 25 hr, Route: IV, Total mL Volume: 1,000, Start date: 07/10/11 11:04:00, Duration: 30 day, Stop date: 08/09/11 11:03:00 Vital Signs Most recent to oldest [Reference Range]: 1 2 3 Height 149.86 cm (07/06/2011 06:20:00) ?? 149.86 cm (07/05/2011 23:18:00) ? Current Weight 87.955 kg (07/08/2011 05:39:00) ?? 83.722 kg (07/06/2011 06:20:00) ? Temperature Oral [96.4-99.1 DegF] 98.9 DegF (07/11/2011 12:00:00) ?? 98.3 DegF (07/11/2011 08:00:00) ?? 97.7 DegF (07/11/2011 04:00:00) ?? Systolic Blood Pressure [90-140 mmHg] 119 mmHg (07/11/2011 12:00:00) ?? 125 mmHg (07/11/2011 08:00:00) ?? 100 mmHg (07/11/2011 04:00:00) ?? Diastolic Blood Pressure [60-90 mmHg] 70 mmHg (07/11/2011 12:00:00) ?? 90 mmHg (07/11/2011 08:00:00) ?? 66 mmHg (07/11/2011 04:00:00) ?? Respiratory Rate [14-20 BRMIN] 20 BRMIN (07/11/2011 12:00:00) ?? 20 BRMIN (07/11/2011 08:00:00) ?? 18 BRMIN (07/11/2011 04:00:00) ?? Peripheral Pulse Rate [60-100 bpm] 81 bpm (07/11/2011 12:00:00) ?? 86 bpm (07/11/2011 08:00:00) ?? 89 bpm (07/11/2011 04:00:00) ?? Weight 81.818 kg (07/05/2011 23:18:00) ? Results BACTERIAL - SEROLOGY Most recent to [Reference Range]: 1 2 3 C diff Toxin Negative (07/07/2011 18:45:00) ? BEDSIDE GLUCOSE TESTING Most recent to [Reference Range]: 1 2 3 Gluc POC Lifscn [65-110 mg/dL] 119 mg/dL 1 *HI* (07/11/2011 11:10:00) ?? 94 mg/dL 2 (07/11/2011 07:14:00) ?? 95 mg/dL 3 (07/11/2011 00:28:00) ?? Comment1 Notify RN/MD *NA* (07/11/2011 11:10:00) ?? Notify RN/MD *NA* (07/11/2011 07:14:00) ?? Notify RN/MD *NA* (07/11/2011 00:28:00) ?? Comment2 Notify RN/MD *NA* (07/10/2011 17:25:00) ?? Notify RN/MD *NA* (07/10/2011 12:42:00) ?? Notify RN/MD *NA* (07/10/2011 08:19:00) ?? Comment3 Notify RN/MD *NA* (07/08/2011 20:30:00) ? 1Interpretive Data: Upper Reportable Limit: 200 mg/dL. 2Interpretive Data: Upper Reportable Limit: 200 mg/dL. 3Interpretive Data: Upper Reportable Limit: 200 mg/dL. URINALYSIS Most recent to oldest [Reference Range]: 1 2 3 UA Turbidity [>Clear] Clear (07/05/2011 23:15:00) ? UA Color [>Yellow] Yellow *NA* (07/05/2011 23:15:00) ? UA pH [5.0-8.0] 6.0 (07/05/2011 23:15:00) ? UA Spec Grav [<<=1.030] 1.010 (07/05/2011 23:15:00) ? UA Glucose [>Negative mg/dL] Negative mg/dL (07/05/2011 23:15:00) ? UA Blood [>Negative] Negative (07/05/2011 23:15:00) ? UA Ketones [>Negative mg/dL] Negative mg/dL *NA* (07/05/2011 23:15:00) ? UA Protein [>Negative mg/dL] Negative mg/dL (07/05/2011 23:15:00) ? UA Urobilinogen [0.1-1.0 EU/dL] 0.2 EU/dL (07/05/2011 23:15:00) ? UA Bili [>Negative] Negative *NA* (07/05/2011 23:15:00) ? UA Leuk Est [>Negative] Negative (07/05/2011 23:15:00) ? UA Nitrite [>Negative] Negative (07/05/2011 23:15:00) ? UA WBC [>None Seen] None Seen (07/05/2011 23:15:00) ? UA RBC [>0-2] None Seen (07/05/2011 23:15:00) ? UA Bacteria [>None Seen /HPF] Occasional /HPF (07/05/2011 23:15:00) ? UA Sq Epi [>Few /LPF] Occasional /LPF (07/05/2011 23:15:00) ? STOOL TESTS Most recent to oldest [Reference Range]: 1 2 3 Occult Bld Stl [>Negative] Negative (07/07/2011 18:45:00) ? Fecal Leukocyte None Seen 4 (07/07/2011 18:45:00) ? 4Interpretive Data: A Value of None Seen, Rare, or Few is Normal. CHEMISTRY Most recent to oldest [Reference Range]: 1 2 3 Sodium Lvl [135-145 mEq/L] 140 mEq/L (07/10/2011 06:24:00) ?? 139 mEq/L (07/07/2011 06:00:00) ?? 134 mEq/L *LOW* (07/05/2011 23:45:00) ?? Potassium Lvl [3.5-5.1 mEq/L] 4.1 mEq/L (07/10/2011 06:24:00) ?? 4.3 mEq/L (07/07/2011 06:00:00) ?? 4.7 mEq/L (07/05/2011 23:45:00) ?? Chloride Lvl [95-109 mEq/L] 106 mEq/L (07/10/2011 06:24:00) ?? 108 mEq/L (07/07/2011 06:00:00) ?? 104 mEq/L (07/05/2011 23:45:00) ?? CO2 [24-32 mEq/L] 24 mEq/L (07/10/2011 06:24:00) ?? 23 mEq/L *LOW* (07/07/2011 06:00:00) ?? 21 mEq/L *LOW* (07/05/2011 23:45:00) ?? AGAP [10.0-20.0 mEq/L] 14.1 mEq/L (07/10/2011 06:24:00) ?? 12.3 mEq/L (07/07/2011 06:00:00) ?? 13.7 mEq/L (07/05/2011 23:45:00) ?? Creatinine Lvl [0.5-1.4 mg/dL] 0.7 mg/dL (07/10/2011 06:24:00) ?? 0.6 mg/dL (07/07/2011 06:00:00) ?? 0.5 mg/dL (07/05/2011 23:45:00) ?? BUN [7-22 mg/dL] 6 mg/dL *LOW* (07/10/2011 06:24:00) ?? 7 mg/dL (07/07/2011 06:00:00) ?? 15 mg/dL (07/05/2011 23:45:00) ?? B/C Ratio [6-25] 9 (07/10/2011 06:24:00) ?? 12 (07/07/2011 06:00:00) ?? 30 *HI* (07/05/2011 23:45:00) ?? Glucose Lvl 126 mg/dL 5 *NA* (07/10/2011 06:24:00) ?? 86 mg/dL 6 *NA* (07/07/2011 06:00:00) ?? 97 mg/dL 7 *NA* (07/05/2011 23:45:00) ?? Total Protein [6.4-8.4 g/dL] 6.7 g/dL (07/10/2011 06:24:00) ?? 5.6 g/dL *LOW* (07/07/2011 06:00:00) ?? 8.2 g/dL (07/05/2011 23:45:00) ?? Albumin Lvl [3.5-5.0 g/dL] 3.6 g/dL (07/10/2011 06:24:00) ?? 3.2 g/dL *LOW* (07/07/2011 06:00:00) ?? 4.3 g/dL (07/05/2011 23:45:00) ?? Globulin [2.0-4.0 g/dL] 3.1 g/dL (07/10/2011 06:24:00) ?? 2.4 g/dL (07/07/2011 06:00:00) ?? 3.9 g/dL (07/05/2011 23:45:00) ?? A/G Ratio [0.7-1.6] 1.2 (07/10/2011 06:24:00) ?? 1.3 (07/07/2011 06:00:00) ?? 1.1 (07/05/2011 23:45:00) ?? Calcium Lvl [8.5-10.5 mg/dL] 9.0 mg/dL (07/10/2011 06:24:00) ?? 8.2 mg/dL *LOW* (07/07/2011 06:00:00) ?? 9.2 mg/dL (07/05/2011 23:45:00) ?? Magnesium Lvl [1.8-2.4 mg/dL] 2.0 mg/dL (07/06/2011 14:17:00) ? ALT [0-65 U/L] 55 U/L (07/10/2011 06:24:00) ?? 41 U/L (07/07/2011 06:00:00) ?? 62 U/L (07/05/2011 23:45:00) ?? AST [0-37 U/L] 47 U/L *HI* (07/10/2011 06:24:00) ?? 10 U/L (07/07/2011 06:00:00) ?? 19 U/L (07/05/2011 23:45:00) ?? Alk Phos [39-136 U/L] 46 U/L (07/10/2011 06:24:00) ?? 29 U/L *LOW* (07/07/2011 06:00:00) ?? 48 U/L (07/05/2011 23:45:00) ?? Bili Total [0.2-1.3 mg/dL] 0.3 mg/dL (07/10/2011 06:24:00) ?? 0.3 mg/dL (07/07/2011 06:00:00) ?? 0.3 mg/dL (07/05/2011 23:45:00) ?? Lipase Lvl [73-393 U/L] 100 U/L (07/05/2011 23:45:00) ? CHD Risk [3.90-5.80] 3.57 *LOW* (07/07/2011 06:00:00) ? Chol [120-200 mg/dL] 150 mg/dL (07/07/2011 06:00:00) ? Trig [0-200 mg/dL] 219 mg/dL *HI* (07/07/2011 06:00:00) ? HDL [>>=35 mg/dL] 42 mg/dL (07/07/2011 06:00:00) ? LDL [0-129 mg/dL] 64 mg/dL (07/07/2011 06:00:00) ? S Preg [>Negative] Negative *NA* (07/05/2011 23:45:00) ? 5Interpretive Data: Reference Ranges : 0 - 7 days : 41 - 90 mg/dL7 days - 150 yrs : 70 - 99 mg/dL (fasting), based on the clinical recommendations of the [place] [employer]. 6Interpretive Data: Reference Ranges : 0 - 7 days : 41 - 90 mg/dL7 days - 150 yrs : 70 - 99 mg/dL (fasting), based on the clinical recommendations of the [place] [employer]. 7Interpretive Data: Reference Ranges : 0 - 7 days : 41 - 90 mg/dL7 days - 150 yrs : 70 - 99 mg/dL (fasting), based on the clinical recommendations of the [place] [employer]. HEMATOLOGY Most recent to oldest [Reference Range]: 1 2 3 WBC [3.7-10.4 K/CMM] 11.4 K/CMM *HI* (07/10/2011 06:24:00) ?? 5.8 K/CMM (07/07/2011 06:00:00) ?? 11.0 K/CMM *HI* (07/05/2011 23:45:00) ?? RBC [4.20-5.40 M/CMM] 3.34 M/CMM *LOW* (07/10/2011 06:24:00) ?? 3.00 M/CMM *LOW* (07/07/2011 06:00:00) ?? 3.80 M/CMM *LOW* (07/05/2011 23:45:00) ?? Hgb [12.0-16.0 g/dL] 11.4 g/dL *LOW* (07/10/2011 06:24:00) ?? 10.3 g/dL *LOW* (07/07/2011 06:00:00) ?? 13.2 g/dL (07/05/2011 23:45:00) ?? Hct [36.0-48.0 %] 33.3 % *LOW* (07/10/2011 06:24:00) ?? 30.4 % *LOW* (07/07/2011 06:00:00) ?? 37.9 % (07/05/2011 23:45:00) ?? MCV [81.0-99.0 fL] 99.8 fL *HI* (07/10/2011 06:24:00) ?? 101.3 fL *HI* (07/07/2011 06:00:00) ?? 99.7 fL *HI* (07/05/2011 23:45:00) ?? MCH [27.0-31.0 pg] 34.2 pg *HI* (07/10/2011 06:24:00) ?? 34.2 pg *HI* (07/07/2011 06:00:00) ?? 34.8 pg *HI* (07/05/2011 23:45:00) ?? MCHC [32.0-36.0 g/dL] 34.3 g/dL (07/10/2011 06:24:00) ?? 33.8 g/dL (07/07/2011 06:00:00) ?? 34.9 g/dL (07/05/2011 23:45:00) ?? RDW [11.5-14.5 %] 15.9 % *HI* (07/10/2011 06:24:00) ?? 16.5 % *HI* (07/07/2011 06:00:00) ?? 17.0 % *HI* (07/05/2011 23:45:00) ?? Platelet [133-450 K/CMM] 215 K/CMM (07/10/2011 06:24:00) ?? 175 K/CMM (07/07/2011 06:00:00) ?? 232 K/CMM (07/05/2011 23:45:00) ?? MPV [7.4-10.4 fL] 9.0 fL (07/10/2011 06:24:00) ?? 8.8 fL (07/07/2011 06:00:00) ?? 9.0 fL (07/05/2011 23:45:00) ?? Segs [45.0-75.0 %] 84.0 % *HI* (07/10/2011 06:24:00) ?? 44.0 % *LOW* (07/07/2011 06:00:00) ?? 53.2 % (07/05/2011 23:45:00) ?? Lymphocytes [20.0-40.0 %] 9.8 % *LOW* (07/10/2011 06:24:00) ?? 44.8 % *HI* (07/07/2011 06:00:00) ?? 35.5 % (07/05/2011 23:45:00) ?? Monocytes [2.0-12.0 %] 5.8 % (07/10/2011 06:24:00) ?? 8.9 % (07/07/2011 06:00:00) ?? 9.7 % (07/05/2011 23:45:00) ?? Eosinophils [0.0-4.0 %] 0.1 % (07/10/2011 06:24:00) ?? 1.5 % (07/07/2011 06:00:00) ?? 1.2 % (07/05/2011 23:45:00) ?? Basophils [0.0-1.0 %] 0.3 % (07/10/2011 06:24:00) ?? 0.8 % (07/07/2011 06:00:00) ?? 0.4 % (07/05/2011 23:45:00) ?? Segs-Bands # [1.5-8.1 K/CMM] 9.6 K/CMM *HI* (07/10/2011 06:24:00) ?? 2.6 K/CMM (07/07/2011 06:00:00) ?? 5.9 K/CMM (07/05/2011 23:45:00) ?? Lymphocytes # [1.0-5.5 K/CMM] 1.1 K/CMM (07/10/2011 06:24:00) ?? 2.6 K/CMM (07/07/2011 06:00:00) ?? 3.9 K/CMM (07/05/2011 23:45:00) ?? Monocytes # [0.0-0.8 K/CMM] 0.7 K/CMM (07/10/2011 06:24:00) ?? 0.5 K/CMM (07/07/2011 06:00:00) ?? 1.1 K/CMM *HI* (07/05/2011 23:45:00) ?? Eosinophils # [0.0-0.5 K/CMM] 0.0 K/CMM (07/10/2011 06:24:00) ?? 0.1 K/CMM (07/07/2011 06:00:00) ?? 0.1 K/CMM (07/05/2011 23:45:00) ?? Basophils # [0.0-0.2 K/CMM] 0.0 K/CMM (07/10/2011 06:24:00) ?? 0.0 K/CMM (07/07/2011 06:00:00) ?? 0.0 K/CMM (07/05/2011 23:45:00) ?? RBC Morph Normal (07/07/2011 06:00:00) ? Anisocyte [>None Seen] 1+ *ABN* (07/07/2011 06:00:00) ? Polychrom [>None Seen] Slight (07/10/2011 06:24:00) ? Hypochrom [>None Seen] Slight (07/10/2011 06:24:00) ?? Slight (07/07/2011 06:00:00) ? Macrocyte [>None Seen] 1+ *ABN* (07/10/2011 06:24:00) ?? 1+ *ABN* (07/07/2011 06:00:00) ?? 1+ *ABN* (07/05/2011 23:45:00) ?? Stomatocyte [>None Seen] Slight *ABN* (07/07/2011 06:00:00) ? Plt Morph Normal (07/10/2011 06:24:00) ?? Normal (07/07/2011 06:00:00) ? Sed Rate [0-20 mm/hr] 7 mm/hr (07/06/2011 09:29:00) ? IMMUNOLOGY Most recent to oldest [Reference Range]: 1 2 3 CRP, High Sensitivity 1.2 mg/L 8 *NA* (07/06/2011 09:29:00) ? 8Interpretive Data: Low Risk: <1.0 mg/LAverage Risk: 1.0 - 3.0 mg/LHigh Risk: >3.0 mg/LInflammation: >10.0 mg/L Microbiology Reports PROCEDURE:Culture: Stool STATUS: Auth (Verified) BODY SITE: ?? COLLECTED DATE/TIME: 07/07/2011 18:45:00 SOURCE: Stool FREE TEXT SOURCE: ?? FINAL REPORTS Final Report No Salmonella, Shigella, Or Campylobacter Isolated . Normal Enteric Kena Isolat ed PRELIMINARY REPORTS Preliminary Report No Salmonella Or Shigella Isolated . Normal Enteric Kena Isolated Preliminary Report No Growth; Holding PROCEDURE:Ova and Parasites Conc and Tri STATUS: Auth (Verified) BODY SITE: ?? COLLECTED DATE/TIME: 07/07/2011 18:45:00 SOURCE: Stool FREE TEXT SOURCE: ?? STAIN REPORTS Stain Report No Ova, Cysts Or Parasites Seen Stain Report No Ova, Cysts Or Parasites Seen
--- OUTSIDE RECORDS SUMMARY | 2018-11-14 10:47 | XMS REPORT | CCD ---
Author Author Auto Generated Organization [facility] Address Unknown Phone Unavailable Care Team Providers Care Chorus Master Name Role Phone Nitin Bassett CP Allergies, [...] Medication Instructions Start Date End Date Status [place] 5/325 oral 1-2 tab, PO, Q4-6H, PRN, 15 tab, 06/22/2012 06/27/2012 Ordered tablet Pain, Substitution Allowed, Maintenance [place] 5/325 oral 2 tab, Route: PO, Dosing Weight 06/22/2012 06/22/2012 Completed tablet 90.909, kg, ONCE, Start date: 06/22/12 23:02:00, Stop date: 06/22/12 23:02:00 Vital Signs Most recent to oldest [Reference Range]: 1 Weight 90.909 kg (06/22/2012 22:25:00)
--- OUTSIDE RECORDS SUMMARY | 2018-11-14 10:47 | XMS REPORT | CCD ---
Author Author Auto Generated Organization [facility] Address Unknown Phone Unavailable Care Team Providers Care Precision Thread Grinder Operator Name Role Phone Ariel Velez CP Allergies, [...] Shortness of breath Active Sore throat Active Vital Signs Most recent to oldest [Reference Range]: 1 Height 149.86 cm (01/08/2012 19:50:00) Weight 79.545 kg (01/08/2012 19:50:00)
--- OUTSIDE RECORDS SUMMARY | 2018-11-14 10:47 | XMS REPORT | Summary of Care ---
Author Organization Unknown Address Unknown Phone Unavailable Encounter HQ Sonya(ROHINI) [id number] Date(s): 02/01/15 - 02/01/15 [facility] [address] [place] [address]- [phone] Discharge Diagnosis: Chest pain, atypical Discharge Disposition: Home Physician Attending: Kurt Quezada MD Vital Signs 1 2 3 Most recent to oldest [Reference Range]: 149.86 cm (02/01/15 9:56 AM) Height 98.2 DegF (02/01/15 3:40 PM) 98.0 DegF (02/01/15 12:27 PM) 97.9 DegF (02/01/15 10:11 AM) Temperature Oral [96.4-99.1 DegF] 118/64 mmHg (02/01/15 3:40 PM) 112/62 mmHg (02/01/15 12:27 PM) Blood Pressure [90-140/60-90 mmHg] 143 mmHg *HI* (02/01/15 10:11 AM) Systolic Blood Pressure [90-140 mmHg] 94 mmHg *HI* (02/01/15 10:11 AM) Diastolic Blood Pressure [60-90 mmHg] 18 BRMIN (02/01/15 3:40 PM) 17 BRMIN (02/01/15 12:27 PM) 20 BRMIN (02/01/15 9:56 AM) Respiratory Rate [14-20 BRMIN] 64 bpm (02/01/15 3:40 PM) 78 bpm (02/01/15 12:27 PM) 104 bpm *HI* (02/01/15 10:11 AM) Peripheral Pulse Rate [60-100 bpm] 90.909 kg (02/01/15 9:56 AM) Weight 40.48 m2 (02/01/15 9:56 AM) Body Mass Index Problem List Condition Effective Dates Status Health Status Informant Acute Active pain(Confirmed) Anxiety Active hyperventilation(Con firmed) Childhood Active asthma(Confirmed) Chronic cluster Active headache(Confirmed) Cough(Confirmed) Active Depression(Confirmed Active ) H/O: Active vertigo(Confirmed) HVS - Active Hyperventilation syndrome(Confirmed) Hypoglycemia(Confirm Active ed) Pneumonia(Confirmed) Active Shortness of Active breath(Confirmed) Sore Active throat(Confirmed) Allergies, Adverse Reactions, Alerts Substance Reaction Severity Status acetaminophen-propoxyphen Active e1 butorphanol2 Active Darvocet-N 100 Active fentanyl Active fentaNYL3 Active ketorolac4 Active NKFA Active NSAIDs Active Stadol Active Toradol Active traMADOL Active traMADol5 Active 1Data migrated from [employer] on 01/04/15. Originally documented as DARVOCET. stomach cramping, vomiting 2Data migrated from [employer] on 01/04/15. Originally documented as STADOL. severe itching 3Data migrated from [employer] on 01/04/15. Originally documented as FENTYNAL. severe itching 4Data migrated from [employer] on 01/04/15. Originally documented as TORADOL. stomach cramping, vomiting 5Data migrated from [employer] on 01/04/15. Originally documented as TRAMADOL. stomach cramping, vomiting Medications acetaminophen-hydrocodone 325 mg-10 mg oral tablet 1 tab, Route: PO, Drug Form: TAB, Dosing Weight 90.909, kg, ONCE, STAT, Start da te: 02/01/15 14:00:00, Stop date: 02/01/15 14:00:00 Notes: Do not exceed 4gm/day of acetaminophen. (Same as: [place] 325/10) Start Date: 02/01/15 Stop Date: 02/01/15 Status: Discontinued acetaminophen-hydrocodone 334 mg-5 mg/10 mL oral elixir 5 ml, PO, Q6H, PRN for pain, # 240 mL, 0 Refill(s) Start Date: 02/01/15 Status: Ordered GI cocktail 30 mL, Route: PO, Dosing Weight 90.909, kg, ONCE, STAT, Start date: 02/01/15 12: 48:00, Stop date: 02/01/15 12:48:00 Start Date: 02/01/15 Stop Date: 02/01/15 Status: Completed LORazepam 1 mg, Route: IVP, ONCE, Dosing Weight 90.909, kg, Priority: STAT, Start date: 12:02:00, Stop date: 02/01/15 12:02:00 Start Date: 02/01/15 Stop Date: 02/01/15 Status: Completed morphine Sulfate 4 mg, Route: IVP, Drug form: INJ, ONCE, Dosing Weight 90.909, kg, Priority: STAT , Start date: 02/01/15 10:52:00, Stop date: 02/01/15 10:52:00 Start Date: 02/01/15 Stop Date: 02/01/15 Status: Completed [place] 10/325 oral tablet 1 tab, PO, Q6H, PRN as needed for pain, # 12 tab, 0 Refill(s) Start Date: 02/01/15 Status: Ordered [place] 5/325 oral tablet 1 tab, Route: PO, Drug Form: TAB, Dosing Weight 90.909, kg, ONCE, STAT, Start da te: 02/01/15 15:15:00, Stop date: 02/01/15 15:15:00 Start Date: 02/01/15 Stop Date: 02/01/15 Status: Completed ondansetron 4 mg, Route: IVP, Drug form: INJ, ONCE, Dosing Weight 90.909, kg, Priority: STAT , Start date: 02/01/15 10:52:00, Stop date: 02/01/15 10:52:00 Start Date: 02/01/15 Stop Date: 02/01/15 Status: Completed pantoprazole 40 mg oral enteric coated tablet 40 mg=1 tab, PO, Daily, # 30 tab, 0 Refill(s) Start Date: 02/01/15 Status: Ordered Results CARDIAC ENZYMES Most recent to 1 oldest [Reference Range]: Troponin-I <0.02 ng/mL [0.00-0.40 ng/mL] (02/01/15 11:03 AM) HEMATOLOGY Most recent to 1 oldest [Reference Range]: WBC [3.7-10.4 K/CMM] 11.9 K/CMM *HI* (02/01/15 11:03 AM) RBC [4.20-5.40 4.59 M/CMM M/CMM] (02/01/15 11:03 AM) Hgb [12.0-16.0 g/dL] 14.1 g/dL (02/01/15: AM) Hct [36.0-48.0 %] 40.8 % (02/01/15 11: AM) MCV [80.0-98.0 fL] 88.8 fL (02/01/15: AM) MCH [27.0-31.0 pg] 30.6 pg (02/01/15: AM) MCHC [32.0-36.0 34.5 g/dL g/dL] (02/01/15: AM) RDW [11.5-14.5 %] 13.8 % (02/01/15: AM) Platelet [133-450 184 K/CMM K/CMM] (02/01/15:03 AM) MPV [7.4-10.4 fL] 9.5 fL (02/01/15 11:03 AM) Segs [45.0-75.0 %] 82.8 % *HI* (02/01/15 11:03 AM) Lymphocytes 12.9 % [20.0-40.0 %] *LOW* (02/01/15: AM) Monocytes [2.0-12.0 3.7 % %] (02/01/15 11:03 AM) Eosinophils [0.0-4.0 0.1 % %] (02/01/15 11: AM) Basophils [0.0-1.0 0.5 % %] (02/01/15 11:03 AM) Segs-Bands # 9.9 K/CMM [1.5-8.1 K/CMM] *HI* (02/01/15 11:03 AM) Lymphocytes # 1.5 K/CMM [1.0-5.5 K/CMM] (02/01/15 11:03 AM) Monocytes # [0.0-0.8 0.4 K/CMM K/CMM] (02/01/15 11:03 AM) Basophils # [0.0-0.2 0.1 K/CMM K/CMM] (02/01/15 11:03 AM) Immunizations No data available for this section Procedures Procedure Date Related Diagnosis Body Site Hysterectomy Social History Social History Type Response Alcohol Current, Frequency: 1-2 times per month. Smoking Status Current every day smoker; Type: Cigarettes; Tobacco use per day: 1; Exposure to Tobacco Smoke None; Cigarette Smoking Last 365 Days Yes; Reg Smoking Cessation Counseling No Assessment and Plan No data available for this section
--- OUTSIDE RECORDS SUMMARY | 2018-11-14 10:47 | XMS REPORT ---
Author Author [facility] Address Unknown Phone Unavailable Care Team Providers Care Fountain Server Name Role Phone ASTRIDCAROLA Alfredo GABRIEL Unavailable Unavailable Problems This patient has no known problems. Allergies, Adverse Reactions, Alerts This patient has no known allergies or adverse reactions. Medications This patient has no known medications. Results Test Description Test Time Test Comments Text Results Atomic Results Result Comments CT ABDOMEN/PELVIS W [place] [address] Patient Name: JANELLE ESPINO MR #: [id number] : 1980 Age/Sex: 36/F Req #: [id number] Adm Physician: Ordered by: BHAVESH NINA MD Report #: [id number] Location: ER Room/Bed: Procedure: [id number] CT/CT ABDOMEN/PELVIS W Exam Date: 05/22/17 Exam Time: 0010 REPORT STATUS: Signed EXAM: CT ABDOMEN AND PELVIS with IV CONTRAST DATE: 05/22/2017 12:01 AM Time stamp on Exam: 0008 hours INDICATION: Periumbilical pain for 5 days COMPARISON: None TECHNIQUE: The abdomen and pelvis were scanned using a multidetector helical scanner. Coronal and sagittal reformations were obtained. Routine protocol performed. IV Contrast: 100 cc Isovue-370 Oral Contrast: Water CTDIvol has been reviewed. It is below the limits set by the Radiation Protocol Committee (RPC). FINDINGS: LOWER THORAX: No consolidations LIVER: No masses BILIARY: The gallbladder has been removed. SPLEEN: No masses PANCREAS: No masses ADRENALS: No nodules KIDNEYS: Symmetric perfusion. No enhancing masses. No hydronephrosis. GI TRACT: No distention, wall thickening or evidence of obstruction. The appendix measures up to 1 cm with mild periappendiceal inflammation. No abscess formation. No free peritoneal air. VESSELS: Unremarkable PERITONEUM/RETROPERITONEUM: No free air or fluid LYMPH NODES: No lymphadenopathy REPRODUCTIVE ORGANS: The uterus and ovaries are not visualized. BLADDER: Unremarkable SOFT TISSUES: Unremarkable BONES: Surgical changes of L5/S1. IMPRESSION: Findings consistent with early appendicitis. Findings discussed with Dr. Nina in May 22, 2017 at 1240 hours. Signed by: Dr. Suzy Khan M.D. on 05/22/2017 12:43 AM Dictated By: SUZY KHAN MD Transcribed By: FELICIA on 05/22/1742 COPY TO: BHAVESH NINA MD
--- OUTSIDE RECORDS SUMMARY | 2018-11-14 10:47 | XMS REPORT | CCD ---
Author Author Auto Generated Organization [facility] Address Unknown Phone Unavailable Care Team Providers Care Honing Machine Operator Production Name Role Phone Juarez Dickerson CP Allergies, [...] [Reference Range]: 1 Height 149.86 cm (01/08/2012 20:49:00) Weight 79.545 kg (01/08/2012 20:49:00)
--- OUTSIDE RECORDS SUMMARY | 2018-11-14 10:47 | XMS REPORT | CCD ---
Author Author Auto Generated Organization [facility] Address Unknown Phone Unavailable Care Team Providers Care Bmw Service Technician Name Role Phone Danette Tolentino CP Allergies, Adverse Reactions, Alerts Substance Reaction [...] Medication Instructions Start Date End Date Status [place] 5/325 oral 1 tab, PO, Q6H, 6 tab, Substitution 01/07/2012 Ordered tablet Allowed, Maintenance Cipro 500 mg oral 500 mg, 1 tab, PO, Q12H, 20 tab, 01/07/2012 01/17/2012 Ordered tablet Substitution Allowed Flagyl 500 mg oral 500 mg, 1 tab, PO, Q8H, 21 tab, 01/07/2012 01/14/2012 Ordered tablet Substitution Allowed Bentyl 20 mg oral 20 mg, 1 tab, PO, QID, 20 tab, 01/07/2012 01/14/2012 Ordered tablet Substitution Allowed, TAB Bentyl 20 mg, Route: IM, ONCE, Start date: 01/07/2012 01/07/2012 Completed 01/07/12 15:40:00, Stop date: 01/07/12 15:40:00 Ativan 1 mg, Route: IVP, ONCE, Priority: 01/07/2012 01/07/2012 Completed STAT, Start date: 01/07/12 15:17:00, Stop date: 01/07/12 15:17:00 Levsin 0.125 mg, 1 tab, Route: PO, Drug 01/07/2012 01/07/2012 Completed form: TAB, ONCE, Start date: 01/07/12 14:06:00, Stop date: 01/07/12 14:06:00 Zofran 4 mg, 1 tab, Route: PO, Drug form: 01/07/2012 01/07/2012 Completed TAB, ONCE, Priority: STAT, Start date: 01/07/12 14:05:00, Stop date: 01/07/12 14:05:00 Benadryl 25 mg, Route: IVP, ONCE, Priority: 01/07/2012 01/07/2012 Completed STAT, Start date: 01/07/12 16:55:00, Stop date: 01/07/12 16:55:00 hydromorphone 1 mg, 1 mL, Route: IVP, Drug form: 01/07/2012 01/07/2012 Completed INJ, ONCE, Priority: STAT, Start date: 01/07/12 14:04:00, Stop date: 01/07/12 14:04:00 Sodium Chloride 0.9% 1,000 mL, Rate: 1,000 ml/hr, Infuse 01/07/2012 01/07/2012 Completed (Bolus) IV 1,000 mL over: 1 hr, Route: IV, Dosing Weight 79 kg, Total Volume: 1,000, Bolus Dose, Priority: STAT, Start date: 01/07/12 14:04:00, Duration: 1 doses or times, Stop date: 01/07/12 15:03:00 Vital Signs Most recent to oldest [Reference Range]: 1 Height 149.86 cm (01/07/2012 12:22:00) Weight 79.545 kg (01/07/2012 12:22:00) Results CHEMISTRY Most recent to oldest [Reference Range]: 1 Sodium Lvl [135-145 mEq/L] 139 mEq/L (01/07/2012 14:30:00) Potassium Lvl [3.5-5.1 mEq/L] 4.0 mEq/L (01/07/2012 14:30:00) Chloride Lvl [95-109 mEq/L] 107 mEq/L (01/07/2012 14:30:00) CO2 [24-32 mEq/L] 24 mEq/L (01/07/2012 14:30:00) AGAP [10.0-20.0 mEq/L] 12.0 mEq/L (01/07/2012 14:30:00) Creatinine Lvl [0.5-1.4 mg/dL] 0.7 mg/dL (01/07/2012:30:00) BUN [7-22 mg/dL] 15 mg/dL (01/07/2012:30:00) B/C Ratio [6-25] 21 (01/07/2012:30:00) Glucose Lvl [70-99 mg/dL] 76 mg/dL 1 (01/07/2012:30:00) Total Protein [6.4-8.4 g/dL] 7.2 g/dL (01/07/2012:30:00) Albumin Lvl [3.5-5.0 g/dL] 4.0 g/dL (01/07/2012:30:00) Globulin [2.0-4.0 g/dL] 3.2 g/dL (01/07/2012:30:00) A/G Ratio [0.7-1.6] 1.3 (01/07/2012:30:00) Calcium Lvl [8.5-10.5 mg/dL] 8.8 mg/dL (01/07/2012 14:30:00) ALT [0-65 U/L] 22 U/L (01/07/2012:30:00) AST [0-37 U/L] 10 U/L (01/07/2012:30:00) Alk Phos [39-136 U/L] 42 U/L (01/07/2012:30:00) Bili Total [0.2-1.3 mg/dL] 0.3 mg/dL (01/07/2012 14:30:00) Lipase Lvl [73-393 U/L] 64 U/L *LOW* (01/07/2012:30:00) 1Interpretive Data: Adult reference range values reflect the clinical guidelinesof the [place] [employer]. HEMATOLOGY Most recent to oldest [Reference Range]: 1 WBC [3.7-10.4 K/CMM] 8.1 K/CMM (01/07/2012 14:30:00) RBC [4.20-5.40 M/CMM] 3.73 M/CMM *LOW* (01/07/2012 14:30:00) Hgb [12.0-16.0 g/dL] 12.9 g/dL (01/07/2012 14:30:00) Hct [36.0-48.0 %] 36.9 % (01/07/2012 14:30:00) MCV [81.0-99.0 fL] 98.8 fL (01/07/2012 14:30:00) MCH [27.0-31.0 pg] 34.4 pg *HI* (01/07/2012 14:30:00) MCHC [32.0-36.0 g/dL] 34.8 g/dL (01/07/2012 14:30:00) RDW [11.5-14.5 %] 14.5 % (01/07/2012 14:30:00) Platelet [133-450 K/CMM] 146 K/CMM (01/07/2012 14:30:00) MPV [7.4-10.4 fL] 9.3 fL (01/07/2012 14:30:00) Segs [45.0-75.0 %] 54.2 % (01/07/2012 14:30:00) Lymphocytes [20.0-40.0 %] 36.1 % (01/07/2012 14:30:00) Monocytes [2.0-12.0 %] 8.0 % (01/07/2012 14:30:00) Eosinophils [0.0-4.0 %] 1.1 % (01/07/2012 14:30:00) Basophils [0.0-1.0 %] 0.6 % (01/07/2012 14:30:00) Segs-Bands # [1.5-8.1 K/CMM] 4.4 K/CMM (01/07/2012 14:30:00) Lymphocytes # [1.0-5.5 K/CMM] 2.9 K/CMM (01/07/2012 14:30:00) Monocytes # [0.0-0.8 K/CMM] 0.6 K/CMM (01/07/2012 14:30:00) Eosinophils # [0.0-0.5 K/CMM] 0.1 K/CMM (01/07/2012 14:30:00) Basophils # [0.0-0.2 K/CMM] 0.0 K/CMM (01/07/2012 14:30:00) Macrocyte [None Seen] 1+ *ABN* (01/07/2012 14:30:00) IMMUNOLOGY Most recent to oldest [Reference Range]: 1 Source Chlam endocervix *NA* (01/07/2012 17:00:00) Chlam PCR [Negative] Negative (01/07/2012 17:00:00) Source Marcus Endocervix *NA* (01/07/2012 17:00:00) Gonorrhea PCR [Negative] Negative (01/07/2012 17:00:00) Microbiology Reports PROCEDURE:Wet Prep STATUS: Auth (Verified) BODY SITE: COLLECTED DATE/TIME: 01/07/2012 17:00:00 SOURCE: Genital FREE TEXT SOURCE: FINAL REPORTS Final Report Rare WBC's Seen No RBC's Seen Few Epithelial Cells Seen No Fungal Elements (Hyph ae) Seen No Trichomonas Seen No Clue Cells Seen
--- OUTSIDE RECORDS SUMMARY | 2018-11-14 10:47 | XMS REPORT | CCD ---
Author Author Auto Generated Organization [facility] Address Unknown Phone Unavailable Care Team Providers Care Concrete Boom Pump Operator Name Role Phone Nitin Bassett CP Allergies, [...] Medication Instructions Start Date End Date Status ondansetron 4 mg, Route: IVP, Drug form: INJ, 01/08/2012 01/08/2012 Completed ONCE, Priority: STAT, Start date: 01/08/12 10:15:00, Stop date: 01/08/12 10:15:00 hydromorphone 1 mg, Route: IV, ONCE, Start date: 01/08/2012 01/08/2012 Completed 01/08/12 10:14:00, Stop date: 01/08/12 10:14:00 Sodium Chloride 0.9% 1,000 mL, Rate: 1,000 ml/hr, Infuse 01/08/2012 01/08/2012 Completed (Bolus) IV 1,000 mL over: 1 hr, Route: IV, kg, Total Volume: 1,000, Bolus dose, Priority: STAT, Start date: 01/08/12 8:16:00, Duration: 1 doses or times, Stop date: 01/08/12 9:15:00 Sodium Chloride 0.9% 1,000 mL, Rate: 125 ml/hr, Infuse 01/08/2012 01/08/2012 Discontinued IV 1,000 mL over: 8 hr, Route: IV, Dosing Weight 79.5 kg, Total Volume: 1,000, Start date: 01/08/12 8:16:00, Duration: 30 day, Stop date: 02/07/12 8:15:00 Saline Flush 0.9% 5 ml, Route: IVP, Drug Form: INJ, 01/08/2012 01/08/2012 Discontinued PRN, PRN Line Flush, Start date: 01/08/12 8:16:00, Duration: 24 hr, Stop date: 01/09/12 8:15:00 hydromorphone 1 mg, Route: IVP, ONCE, Priority: 01/08/2012 01/08/2012 Completed STAT, Start date: 01/08/12 8:16:00, Stop date: 01/08/12 8:16:00 ondansetron 4 mg, Route: IVP, ONCE, Priority: 01/08/2012 01/08/2012 Completed STAT, Start date: 01/08/12 8:16:00, Stop date: 01/08/12 8:16:00 Dilaudid 1 mg, Route: IV, ONCE, Priority: 01/08/2012 01/08/2012 Completed STAT, Start date: 01/08/12 12:28:00, Stop date: 01/08/12 12:28:00 Ativan 1 mg, Route: IVP, ONCE, Priority: 01/08/2012 01/08/2012 Completed STAT, Start date: 01/08/12 10:41:00, Stop date: 01/08/12 10:41:00 Zofran 4 mg oral 4 mg, 1 tab, PO, BID, 10 tab, 01/08/2012 Ordered tablet Substitution Allowed [place] 5/325 oral 1 tab, PO, Q4-6H, PRN, 30 tab, as 01/08/2012 Ordered tablet needed for pain, Substitution Allowed, Maintenance Vital Signs Most recent to oldest [Reference Range]: 1 Height 149.86 cm (01/08/2012 07:23:00) Weight 79.545 kg (01/08/2012 07:23:00) Results URINALYSIS Most recent to oldest [Reference Range]: 1 UA Turbidity [Clear] Clear (01/08/2012 09:30:00) UA Color [Yellow] Yellow *NA* (01/08/2012 09:30:00) UA pH [5.0-8.0] 6.5 (01/08/2012:30:00) UA Spec Grav [<=1.030] 1.015 (01/08/2012:30:00) UA Glucose [Negative mg/dL] Negative mg/dL (01/08/2012:30:00) UA Blood [Negative] Negative (01/08/2012:30:00) UA Ketones [Negative mg/dL] Negative mg/dL *NA* (01/08/2012:30:00) UA Protein [Negative mg/dL] Negative mg/dL (01/08/2012:30:00) UA Urobilinogen [0.1-1.0 EU/dL] 0.2 EU/dL (01/08/2012:30:00) UA Bili [Negative] Negative *NA* (01/08/2012:30:00) UA Leuk Est [Negative] Negative (01/08/2012:30:00) UA Nitrite [Negative] Negative (01/08/2012:30:00) UA WBC [None Seen /HPF] 0-2 /HPF (01/08/2012:30:00) UA RBC [0-2] None Seen (01/08/2012:30:00) UA Bacteria [None Seen] None Seen (01/08/2012:30:00) UA Sq Epi [Few /LPF] Rare /LPF (01/08/2012:30:00) UA Mucus [None Seen] None Seen (01/08/2012:30:00) Micro? Performed (01/08/2012:30:00) CHEMISTRY Most recent to oldest [Reference Range]: 1 Sodium Lvl [135-145 mEq/L] 141 mEq/L (01/08/2012:30:00) Potassium Lvl [3.5-5.1 mEq/L] 4.0 mEq/L (01/08/2012:30:00) Chloride Lvl [95-109 mEq/L] 107 mEq/L (01/08/2012:30:00) CO2 [24-32 mEq/L] 25 mEq/L (01/08/2012:30:00) AGAP [10.0-20.0 mEq/L] 13.0 mEq/L (01/08/2012:30:00) Creatinine Lvl [0.5-1.4 mg/dL] 0.6 mg/dL (01/08/2012:30:00) BUN [7-22 mg/dL] 12 mg/dL (01/08/2012:30:00) B/C Ratio [6-25] 20 (01/08/2012:30:00) Glucose Lvl [70-99 mg/dL] 85 mg/dL 1 (01/08/2012:30:00) Total Protein [6.4-8.4 g/dL] 7.0 g/dL (01/08/2012:30:00) Albumin Lvl [3.5-5.0 g/dL] 3.5 g/dL (01/08/201230:00) Globulin [2.0-4.0 g/dL] 3.5 g/dL (01/08/2012:30:00) A/G Ratio [0.7-1.6] 1.0 (01/08/201230:00) Calcium Lvl [8.5-10.5 mg/dL] 9.1 mg/dL (01/08/2012:30:00) ALT [0-65 U/L] 24 U/L (01/08/2012:30:00) AST [0-37 U/L] 10 U/L (01/08/2012:30:00) Alk Phos [39-136 U/L] 50 U/L (01/08/2012:30:00) Bili Total [0.2-1.3 mg/dL] 0.2 mg/dL (01/08/2012:30:00) Lipase Lvl [73-393 U/L] 109 U/L (01/08/2012:30:00) 1Interpretive Data: Adult reference range values reflect the clinical guidelinesof the [place] [employer]. HEMATOLOGY Most recent to oldest [Reference Range]: 1 WBC [3.7-10.4 K/CMM] 7.6 K/CMM (01/08/2012 09:30:00) RBC [4.20-5.40 M/CMM] 3.76 M/CMM *LOW* (01/08/2012 09:30:00) Hgb [12.0-16.0 g/dL] 12.3 g/dL (01/08/2012:30:00) Hct [36.0-48.0 %] 37.7 % (01/08/2012:30:00) MCV [81.0-99.0 fL] 100.3 fL *HI* (01/08/2012::00) MCH [27.0-31.0 pg] 32.8 pg *HI* (01/08/2012:30:00) MCHC [32.0-36.0 g/dL] 32.7 g/dL (01/08/2012:30:00) RDW [11.5-14.5 %] 14.7 % *HI* (01/08/2012:30:00) Platelet [133-450 K/CMM] 140 K/CMM (01/08/2012:30:00) MPV [7.4-10.4 fL] 9.4 fL (01/08/2012:30:00) Segs [45.0-75.0 %] 63.2 % (01/08/2012:30:00) Lymphocytes [20.0-40.0 %] 26.4 % (01/08/2012:30:00) Monocytes [2.0-12.0 %] 8.5 % (01/08/2012:30:00) Eosinophils [0.0-4.0 %] 1.6 % (01/08/2012:30:00) Basophils [0.0-1.0 %] 0.3 % (01/08/2012:30:00) Segs-Bands # [1.5-8.1 K/CMM] 4.8 K/CMM (01/08/2012:30:00) Lymphocytes # [1.0-5.5 K/CMM] 2.0 K/CMM (01/08/2012:30:00) Monocytes # [0.0-0.8 K/CMM] 0.6 K/CMM (01/08/2012 09:30:00) Eosinophils # [0.0-0.5 K/CMM] 0.1 K/CMM (01/08/2012 09:30:00) Basophils # [0.0-0.2 K/CMM] 0.0 K/CMM (01/08/2012 09:30:00)
[2018-11-14] MEDS ORDERED: ALBUTEROL/IPRATROPIUM 3 ML NEB NEB ONE (12:30)
[2018-11-14] MEDS ORDERED: HYDROCODONE/CHLORPHENIRAMINE 5 ML LIQCR PO PRN ×2 (12:45→13:45)
--- NOTE | 2018-11-14 13:00 | NUR ---
1301- Tussenex 5ml PO given
[2018-11-14 13:06] LABS: STREPTOCOCCUS GRP A ANTIGEN NEGATIVE (NEGATIVE)
[2018-11-14 13:15] LABS: INFLUENZAE A&B ANTIGEN (RAPID) NEGATIVE (NEGATIVE)
--- NOTE | 2018-11-14 13:46 | Diagnostic Imaging Report ---
EXAMINATION: CHEST 2 VIEWS INDICATION: Cough. COMPARISON: None FINDINGS: TUBES and LINES: None. LUNGS: Lungs are well inflated. Lungs are clear. There is no evidence of pneumonia or pulmonary edema. PLEURA: No pleural effusion or pneumothorax. HEART AND MEDIASTINUM: The cardiomediastinal silhouette is unremarkable. BONES AND SOFT TISSUES: No acute osseous abnormality. UPPER ABDOMEN: No free air under the diaphragm. Status post cholecystectomy. IMPRESSION: No acute radiographic abnormality. Signed by: Dr. Farhat Aviles MD on 11/14/2018 1:43 PM
[2018-11-14] MEDS ORDERED: METOCLOPRAMIDE HCL 10 MG/2ML VIAL IV ONE (14:00)
[2018-11-14] MEDS ORDERED: SODIUM CHLORIDE 0.9% 1000ML 1,000 ML IV ONE (14:00)
[2018-11-14] MEDS ORDERED: VALPROATE SOD INJ 500 MG in SODIUM CHLORIDE 0.9% 100 ML 100 ML IV ONE (14:00)
[2018-11-14] MEDS ORDERED: DIPHENHYDRAMINE HCL INJ 50 MG/ML VIAL IV ONE (14:00)
== END 2018-11-14 14:43 | disposition home or self-care (01) ==
LOC: ER 10:38
DX: R05 Cough (principal); J20.8 Acute bronchitis due to other specified organisms; G43.909 Migraine, unspecified, not intractable, without status migrainosus; N80.9 Endometriosis, unspecified
CPT/HCPCS: 71046; 83518; 87070; 87400; 99284

== ENCOUNTER 2020-11-10 17:07 | Emergency (ER) | payer BC ==
[~2020-11-10] VITALS: Ht 149.9 cm; Wt 85.7 kg
[2020-11-10] MEDS ORDERED: ACETAMIN/BUTALBITAL/CAFFEINE TAB PO ONE (17:30)
[2020-11-10] MEDS ORDERED: METOCLOPRAMIDE HCL 10 MG/2ML VIAL IV ONE (17:30)
[2020-11-10] MEDS ORDERED: DIPHENHYDRAMINE HCL INJ 50 MG/ML VIAL IV ONE (17:30)
[2020-11-10] MEDS ORDERED: MAGNESIUM SULF 1GRAM/DEXTROSE 100 ML IV ONE (17:30)
[2020-11-10] MEDS ORDERED: SODIUM CHLORIDE 0.9% 1000ML 1,000 ML IV SCH (17:30)
[2020-11-10] MEDS ORDERED: METOCLOPRAMIDE HCL 10 MG TAB PO ONE (19:00)
[2020-11-10] MEDS ORDERED: HYDROCODONE/APAP 10MG-325MG TAB PO ONE (19:15)
[2020-11-10 19:52] VITALS: BP 146/83
== END 2020-11-10 19:26 | disposition home or self-care (01) ==
LOC: ER 17:15
DX: R51.9 Headache, unspecified (principal); Z76.5 Malingerer [conscious simulation]; E03.9 Hypothyroidism, unspecified; M54.9 Dorsalgia, unspecified; G89.29 Other chronic pain
CPT/HCPCS: 99282